=== PATIENT | female | born 1965 | race Caucasian/White ===

== ENCOUNTER 2019-11-13 16:13 | Outpatient (CLI) | payer BC, SELFPAY ==
--- NOTE | 2019-11-13 16:22 | ECG_ITS ---
Measurements Intervals [place] Rate: 63 P: 79 MN: 142 QRS: 75 QRSD: 73 T: 72 QT: 386 QTc: 396 Interpretive Statements SINUS RHYTHM WITH SINUS ARRHYTHMIA RSR' IN V1 OR V2, CONSIDER RIGHT VENTRICULAR HYPERTROPHY OR RIGHT VCD BORDERLINE ECG Electronically Signed On 11-14-2019 7:38:57 CDT by Maldonado Huggins D.O.
[2019-11-13 16:26] LABS: Basophils Absolute Auto 0.03 K/mm3 (0.00-0.10); Basophils Percent Auto 0.4 % (0.0-1.0); Eosinophils Absolute Auto 0.16 K/mm3 (0.02-0.50); Eosinophils Percent Auto 2.2 % (1.0-6.0); Hematocrit 41.6 % (35.0-49.0); Hemoglobin 14.4 g/dL (12.0-15.0); Immature Granulocyte Absolute 0.03 K/mm3 (0.00-0.00); Immature Granulocyte Percent A 0.4 % (0.0-0.0); Lymphocytes Absolute Auto 2.08 K/mm3 (1.10-4.50); Lymphocytes Percent Auto 28.5 % (18.0-42.0); Mean Corpuscular HGB Conc 34.6 g/dL (32.0-36.0); Mean Corpuscular Volume 89.7 fL (78.0-102.0); Mean Platelet Volume 10.4 fl (9.2-11.8); Monocytes Absolute Auto 0.73 K/mm3 (0.10-0.90); Neutrophils Absolute Auto 4.3 K/mm3 (1.7-7.2); Neutrophils Percent Auto 58.5 % (50.0-70.0); Platelet Count Result 216 K/mm3 (150-420); Red Blood Count 4.64 M/mm3 (4.20-5.40); Red Cell Distribution Width 11.9 % (11.6-14.4); White Blood Count 7.3 K/mm3 (4.8-10.8)
[2019-11-13 17:14] LABS: Alanine Aminotransferase 109 U/L (14-59); Albumin Level 4.2 g/dL (3.4-5.0); Alkaline Phosphatase 57 U/L (46-116); Aspartate Amino Transferase 51 U/L (15-37); Bilirubin,Total 1.5 mg/dL (0.00-1.00); Blood Urea Nitrogen 10 mg/dL (7-18); Calcium 9.1 mg/dL (8.5-10.1); Carbon Dioxide 31 mmol/L (21-32); Chloride 102 mmol/L (98-108); Cholesterol 162 mg/dL (0-200); Estimated Glomerular Filt Rate > 60; Glucose 94 mg/dL (70-99); HDL Direct 52 mg/dL (40-60); LDL Cholesterol Calculated 82 mg/dL (<130); Osmolality Calculated 293 mOsm/kg (285-295); Sodium 142 mmol/L (136-145); Thyroid Stimulating Hormone 1.48 uIU/mL (0.36-3.74); Total Protein 7.1 g/dL (6.4-8.2); Triglycerides 141 mg/dL (0-150)
== END 2019-11-13 16:14 | disposition home or self-care (01) ==
PROVIDERS: PCP Nurse Practitioner Family; Visit Provider Nurse Practitioner Family
DX: Z00.00 Encounter for general adult medical examination without abnormal findings (principal); R07.89 Other chest pain
CPT/HCPCS: 36415; 80053; 80061; 84443; 85025; 93005

== ENCOUNTER 2019-11-19 08:46 | Outpatient (CLI) | payer BC, SELFPAY ==
--- NOTE | 2019-11-19 12:39 | P.PCNPFT_ITS ---
PFT Interpretation PFT Interpretation: DOS: 11/19/2019 REQUESTING: Irma Valenzuela REASON FOR TESTING: Shortness of breath PULMONARY FUNCTION TESTS Results are reproducible. Spirometry: FEV is 85%, 2.2 L. FVC is 96%. FEV1% is 87%, all are normal. FEF25- 75% is low at 50% predicted and increases by 27% after bronchodilator. Lung volumes: TLC 89%, normal. Residual volume is 84%, normal. Airway resistance increased at 187%. Diffusion: DLCO 88%, normal. Flow volume loop: Normal. IMPRESSION: This study shows a small airways pattern with reduced FEF 25-75% with a good response to bronchodilator, mild increase in airway resistance. In the proper clinical setting, this pattern may be consistent with asthma. Beverley Gillis MD
== END 2019-11-19 08:47 | disposition home or self-care (01) ==
PROVIDERS: PCP Nurse Practitioner Family; Visit Provider Nurse Practitioner Family
DX: R06.02 Shortness of breath (principal); R74.9 Abnormal serum enzyme level, unspecified; R94.31 Abnormal electrocardiogram [ECG] [EKG]
CPT/HCPCS: 94060; 94726; 94729

== ENCOUNTER 2019-11-21 07:28 | Outpatient (CLI) | payer BC, SELFPAY ==
--- NOTE | ~2019-11-21 | US_ITS ---
EXAMINATION: US abdomen complete DATE: 11/21/2019 09:32 INDICATION: Abnormal levels of serum enzymes TECHNIQUE: Multiple grayscale and Doppler ultrasound images of the abdomen were obtained. COMPARISON: None available FINDINGS: The head, body, and tail of the pancreas are normal. The liver is normal with normal echoge nicity and echotexture. No surface nodularity. Normal hepatopetal flow in the main portal vein. Stone s are present in the nondistended gallbladder. There is no gallbladder wall thickening or pericholecy stic fluid. The normal common bile duct measures 3 mm. There was no sonographic Funez sign. The visu alized portions of the aorta and inferior vena cava are normal. The right kidney measures 9.8 x 3.3 x 4.7 cm. The left kidney measures 8.5 x 3.7 x 4.9 cm. The kidney s demonstrate normal parenchymal echogenicity. There is no hydronephrosis. The spleen is normal in ap pearance and measures 10.1 cm. IMPRESSION: 1. Cholelithiasis without evidence of cholecystitis. Reviewed, dictated and finalized at location A.
--- NOTE | 2019-11-21 07:38 | ECHO_ITS ---
Patient Info Name: Aislinn Payne Age: 54 years : 1965 Gender: Female Ht: 65 in Wt: 121 lbs BSA: 1.58 m2 HR: 74 bpm BP: 109 / 62 mmHg Heart Rhythm: Sinus Rhythm Technical Quality: Fair Exam Date: 11/21/2019 8:24 AM Exam Location: [facility] Patient Status: Outpatient Admit Date: 11/21/2019 Staff Ordering Physician: Irma Valenzuela NP Document Improvement Specialist: Celine Porter RDCS Attending Provider: Irma Valenzuela NP Referring Physician: Nicolas DALTON; Exam Type: CA echo doppler color flow Study Info Indications R94.31 - Abnormal electrocardiogram ECG EKG Strain analysis performed. Complete two-dimensional, color flow and Doppler transthoracic echocardiogram is performed. History/Risk Factors Hypertension: No Dyslipidemia: No Congenital Heart Disease (CHD): No Peripheral Arterial Disease (PAD): No Myocardial Infarction (NH): No Chronic Lung Disease: No Obesity: No Renal Disease: No Coronary Artery Disease (CAD) No Congestive Heart Failure (CHF): No Cardiomyopathy/LV Systolic Dysfunction: No Diabetes Mellitus: No COPD: No Tobacco Use: Never Cerebrovascular Disease: No Family History: Diabetes Mellitus Deep Vein Thrombosis (DVT): None Dialysis: None Frailty Scale (CSHA): 1: Very Fit Cardiac Arrest: No Prior Interventions Pacemaker: No PCI: No CABG: No Valve Surgery: No ICD: No PV Intervention: None Heart Transplant: No Summary 1. Left ventricular chamber dimension is normal. 2. Left ventricular systolic function is normal, estimated at 60-65%. 3. The left ventricular diastolic function is abnormal. 4. E/e' 10 is mildly elevated. 5. Global longitudinal strain is normal at -20.2%. 6. The mitral valve has mildly calcified annulus. Left Ventricle E/e' 10 is mildly elevated. Global longitudinal strain is normal at -20.2%. Left ventricular chamber dimension is normal. Left ventricular systolic function is normal, estimated at 60-65%. The left ventricular diastolic function is abnormal. Right Ventricle Right ventricular chamber dimension is normal. Right ventricular systolic function is normal. Left Atria Left atrial chamber dimension is normal. Right Atria Right atrial chamber dimension is normal. Aortic Valve The aortic valve is trileaflet. There is no aortic valve stenosis. There is no aortic valve regurgitation. Pulmonic Valve There is no pulmonic regurgitation. Mitral Valve The mitral valve has mildly calcified annulus. There is no mitral valve stenosis. There is no mitral valve regurgitation. Tricuspid Valve There is no tricuspid valve regurgitation. Pericardium/Pleural There is no pericardial effusion. Inferior Vena Cava Normal inferior vena cava with >50% collapse upon inspiration consistent with normal right atrial pressure, 5 mmHg. Aorta The aortic root size at the sinus of Valsalva is normal. Left Ventricular Outflow Tract Name Value Normal LVOT 2D LVOT Diameter 1.6 cm LVOT Doppler LV
[2019-11-21 08:46] LABS: Alanine Aminotransferase 91 U/L (14-59); Albumin Level 4.1 g/dL (3.4-5.0); Alkaline Phosphatase 49 U/L (46-116); Anion Gap 14.9 mmol/L (7-16); Aspartate Amino Transferase 38 U/L (15-37); Bilirubin,Total 1.4 mg/dL (0.00-1.00); Blood Urea Nitrogen 10 mg/dL (7-18); Calcium 9.3 mg/dL (8.5-10.1); Carbon Dioxide 28 mmol/L (21-32); Chloride 104 mmol/L (98-108); Estimated Glomerular Filt Rate > 60; Glucose 85 mg/dL (70-99); Osmolality Calculated 294 mOsm/kg (285-295); Potassium 3.9 mmol/L (3.5-5.1); Sodium 143 mmol/L (136-145); Total Protein 6.9 g/dL (6.4-8.2)
[2019-11-24 20:04] LABS: Hepatitis A Antibody IgM Nonreactive; Hepatitis B Core Antibody Nonreactive (Nonreactive); Hepatitis B Surface Antigen Nonreactive (Nonreactive); Hepatitis C Signal to Cutoff 0.01 ratio (<1.00); Hepatitis C Virus Antibody Nonreactive (Nonreactive)
== END 2019-11-21 07:29 | disposition home or self-care (01) ==
PROVIDERS: PCP Nurse Practitioner Family; Visit Provider Nurse Practitioner Family
DX: R74.8 Abnormal levels of other serum enzymes (principal); R94.31 Abnormal electrocardiogram [ECG] [EKG]
CPT/HCPCS: 36415; 76700; 80053; 80074; 93306

== ENCOUNTER 2020-01-07 10:01 | Outpatient (CLI) | payer BC, SELFPAY ==
[2020-01-07 10:55] LABS: Alanine Aminotransferase 112 U/L (14-59); Albumin Level 4.2 g/dL (3.4-5.0); Alkaline Phosphatase 62 U/L (46-116); Anion Gap 11.2 mmol/L (7-16); Aspartate Amino Transferase 61 U/L (15-37); Bilirubin,Total 1.6 mg/dL (0.00-1.00); Blood Urea Nitrogen 14 mg/dL (7-18); Calcium 9.1 mg/dL (8.5-10.1); Carbon Dioxide 29 mmol/L (21-32); Chloride 102 mmol/L (98-108); Estimated Glomerular Filt Rate > 60; Glucose 78 mg/dL (70-99); Osmolality Calculated 285 mOsm/kg (285-295); Potassium 4.2 mmol/L (3.5-5.1); Sodium 138 mmol/L (136-145); Total Protein 7.2 g/dL (6.4-8.2)
== END 2020-01-07 10:02 | disposition home or self-care (01) ==
LOC: CHSLAB 10:03
PROVIDERS: PCP Nurse Practitioner Family; Visit Provider Nurse Practitioner Family
DX: R74.8 Abnormal levels of other serum enzymes (principal)
CPT/HCPCS: 36415; 80053

== ENCOUNTER 2020-01-10 09:47 | Outpatient (CLI) | payer BC, SELFPAY ==
[2020-01-10 10:48] LABS: Iron 92 ug/dL (50-170); Percent Iron Saturation 27 % (12-57)
[2020-01-15 11:51] LABS: Alpha-1-Antitrypsin, QN 90 mg/dL (83-199)
== END 2020-01-10 09:48 | disposition home or self-care (01) ==
LOC: CHSLAB 09:53
PROVIDERS: PCP Nurse Practitioner Family; Visit Provider Nurse Practitioner Family
DX: J45.909 Unspecified asthma, uncomplicated (principal); R74.8 Abnormal levels of other serum enzymes
CPT/HCPCS: 36415; 82103; 82104; 83540; 83550

== ENCOUNTER 2020-01-13 14:21 | Outpatient (CLI) | payer BC, SELFPAY ==
[2020-01-13 15:15] LABS: Immunoglobulin A 182 mg/dL (70-400); Immunoglobulin G 965 mg/dL (700-1600); Immunoglobulin M 122 mg/dL (40-230)
[2020-01-16 10:13] LABS: Tissue Transglutaminase IgA Ab 1 U/mL (<4); Tissue Transglutaminase IgG Ab 3 U/mL (<6)
[2020-01-16 11:14] LABS: Mitochondrial (M2) Ab (IgG) <=20.0 U (<=20.0)
[2020-01-16 11:20] LABS: Actin Antibody (IgG) <20 U (<20)
[2020-01-16 11:57] LABS: Ceruloplasmin 27 mg/dL (18-53)
== END 2020-01-13 14:22 | disposition home or self-care (01) ==
PROVIDERS: PCP Nurse Practitioner Family; Visit Provider Internal Medicine Gastroenterology
DX: R79.89 Other specified abnormal findings of blood chemistry (principal)
CPT/HCPCS: 36415; 82390; 82728; 82784; 83516; 83520; 86038

== ENCOUNTER 2020-02-05 11:07 | Outpatient (CLI) | payer BC, SELFPAY ==
[2020-02-05 12:03] LABS: Alanine Aminotransferase 25 U/L (14-59); Albumin Level 3.9 g/dL (3.4-5.0); Alkaline Phosphatase 50 U/L (46-116); Anion Gap 10 mmol/L (8-16); Aspartate Amino Transferase 18 U/L (15-37); Bilirubin,Total 1.5 mg/dL (0.00-1.00); Blood Urea Nitrogen 9 mg/dL (7-18); Calcium 9.2 mg/dL (8.5-10.1); Carbon Dioxide 28 mmol/L (21-32); Chloride 105 mmol/L (98-108); Estimated Glomerular Filt Rate > 60; Glucose 90 mg/dL (70-99); Osmolality Calculated 294 mOsm/kg (285-295); Potassium 3.9 mmol/L (3.5-5.1); Sodium 143 mmol/L (136-145); Total Protein 6.9 g/dL (6.4-8.2)
== END 2020-02-05 11:08 | disposition home or self-care (01) ==
PROVIDERS: PCP Nurse Practitioner Family; Visit Provider Internal Medicine Gastroenterology
DX: R79.89 Other specified abnormal findings of blood chemistry (principal)
CPT/HCPCS: 36415; 80053

== ENCOUNTER 2020-03-25 15:12 | Outpatient (CLI) | payer BC, SELFPAY ==
--- NOTE | ~2020-03-25 | XR_ITS ---
XR ankle LT 2V DATE: 03/25/2020 15:51 INDICATION: Rolling injury; left ankle and foot pain. TECHNIQUE: 3 views COMPARISON: None FINDINGS: No fracture or dislocation of the ankle or disruption of the ankle mortise. No periosteal r eaction or bone destruction. IMPRESSION: Negative Reviewed, dictated and finalized at location B. IMPRESSION: Negative
--- NOTE | ~2020-03-25 | XR_ITS ---
XR foot LT 2V DATE: 03/25/2020 15:51 INDICATION: Rolled ankle and foot yesterday; lateral ankle and foot pain TECHNIQUE: AP and lateral views of left foot COMPARISON: None FINDINGS: No fracture or dislocation, periosteal reaction or bone destruction, joint space narrowing, erosive change or other significant abnormality. IMPRESSION: Negative Reviewed, dictated and finalized at location B. IMPRESSION: Negative
== END 2020-03-25 15:13 | disposition home or self-care (01) ==
PROVIDERS: PCP Nurse Practitioner Family; Visit Provider Nurse Practitioner Family
DX: M25.572 Pain in left ankle and joints of left foot (principal)
CPT/HCPCS: 73600; 73620

== ENCOUNTER 2020-07-22 07:58 | Outpatient (CLI) | payer OTHER, SELFPAY ==
[2020-07-23 16:56] LABS: SARS-CoV-2 RNA PCR Negative
== END 2020-07-22 07:59 | disposition home or self-care (01) ==
LOC: CHSLAB 08:01
PROVIDERS: PCP Nurse Practitioner Family; Visit Provider Nurse Practitioner Family
DX: Z20.822 Contact with and (suspected) exposure to COVID-19 (principal)
CPT/HCPCS: C9803; U0003; U0005

== ENCOUNTER 2020-09-30 09:44 | Outpatient (CLI) | payer OTHER, SELFPAY ==
--- NOTE | ~2020-09-30 | XR_ITS ---
EXAMINATION: XR chest 2V DATE: 09/30/2020 10:12 INDICATION: Shortness of breath. TECHNIQUE: Frontal and lateral views of the chest were obtained. COMPARISON: Chest 2 views 05/08/2015 FINDINGS: There is mild scarring at the lung apices. No pleural effusion or pneumothorax. The heart s ize is normal. Breast implants are noted. IMPRESSION: 1. Stable mild scarring at the lung apices. Reviewed, dictated and finalized at location A.
--- NOTE | 2020-09-30 14:07 | MISC_ITS ---
This report was moved to the correct visit, [id number] on 12/11/20. Original report was signed by Beverley Gillis MD on 10/01/202148. Methacholine Challenge Report Signed Methacholine Challenge Methacholine Challenge: DOS: 09/30/2020 REQUESTING: Irma Valenzuela REASON FOR TESTING: Shortness of breath METHACHOLINE CHALLENGE This test was conducted per ATS guidelines. A previous study on 11/19/2019 showed normal spirometry. The patient was exposed to sequentially increasing doses of methacholine in the usual manner. Level 1 - saline Level 2 - 0.025 mg Level 3 - 0.25 mg Level 4 - 2.5 mg Level 5 - 10 mg Level 6 - 25 mg The test was stopped after the final dose, 25 mg. There was no significant drop in FEV1 during this test. Flows returned to normal after bronchodilator was administered. IMPRESSION: This is a negative methacholine challenge with the the patient completing the test without a significant drop in FEV1. The best use for a methacholine challenge is to rule out asthma. Clinical correlation is advised. Beverley Gillis MD Methacholine Procedure Perform Procedure Performed Methacholine Challenge This dictation may have been done utilizing a voice recognition system. Attempts have been made to correct errors. However, there may be uncorrected grammatical, spelling, and recognition errors present. Report Initialized date/time: Beverley Gillis MD 09/30/20 / 1407 Electronically signed by: Beverley Gillis MD 10/01/202148 [facility]
== END 2020-09-30 09:45 | disposition home or self-care (01) ==
LOC: CHSIMG 09:46
PROVIDERS: PCP Nurse Practitioner Family; Visit Provider Internal Medicine Critical Care Medicine
DX: R06.00 Dyspnea, unspecified (principal)
CPT/HCPCS: 71046; 94070; 94726; 94729; A9270; J7674

== ENCOUNTER 2020-12-24 10:19 | Outpatient (CLI) | payer OTHER, SELFPAY ==
--- NOTE | 2020-12-24 10:36 | EST_ITS ---
Patient Info Name: Aislinn Payne Age: 55 years : 1965 Gender: Female Ht: 65 in Wt: 117 lbs BSA: 1.55 m2 Exam Date: 12/24/2020 10:50 AM Exam Location: [facility] Patient Status: Outpatient Admit Date: 12/24/2020 Staff Ordering Physician: Toñito, Vasquez Paniagua MD Attending Provider: Beverley Gillis MD Exercise Technologist: Donna Monsivais RDCS Exercise Physician: Maldonado Huggins DO Exam Type: CA stress test treadmill Study Info Indications R06.00 - Dyspnea, unspecified A treadmill exercise stress test was performed. History/Risk Factors Hypertension: No Dyslipidemia: No Congenital Heart Disease (CHD): No Peripheral Arterial Disease (PAD): No Myocardial Infarction ([place]): No Chronic Lung Disease: No Obesity: No Renal Disease: No Coronary Artery Disease (CAD) No Congestive Heart Failure (CHF): No Cardiomyopathy/LV Systolic Dysfunction: No Diabetes Mellitus: No COPD: No Tobacco Use: Never Cerebrovascular Disease: No Family History: Diabetes Mellitus Deep Vein Thrombosis (DVT): None Dialysis: None Frailty Scale (CSHA): 1: Very Fit Cardiac Arrest: No Prior Interventions Pacemaker: No PCI: No CABG: No Valve Surgery: No ICD: No PV Intervention: None Heart Transplant: No Summary 1. 1. Negative Gonzalo exercise stress test for ischemic ST changes by ECG criteria. 2. 2. Good functional capacity, achieving 10 METs of workload. 3. 3. Appropriate HR response to exercise. 4. 4. Appropriate HR recovery at 1 minute post exercise. 5. 5. No imaging with stress testing. 6. 6. Patient informed of the above results. Protocol: Gonzalo Stress ECG Details Stage: REST Duration (min): 4 min : 45 sec Speed (mph): 0.0 Grade (%): 0 HR (bpm): 53 SBP (mmHg): 101 DBP (mmHg): 62 METS: --- Stage: REST Duration (min): 9 min : 15 sec Speed (mph): 0.0 Grade (%): 0 HR (bpm): 55 SBP (mmHg): 101 DBP (mmHg): 62 METS: --- Stage: STAGE 1 Duration (min): 1 min : 0 sec Speed (mph): 1.7 Grade (%): 10 HR (bpm): 81 SBP (mmHg): 101 DBP (mmHg): 62 METS: --- Stage: STAGE 1 Duration (min): 2 min : 0 sec Speed (mph): 1.7 Grade (%): 10 HR (bpm): 92 SBP (mmHg): 101 DBP (mmHg): 62 METS: --- Stage: STAGE 1 Duration (min): 3 min : 0 sec Speed (mph): 1.7 Grade (%): 10 HR (bpm): 92 SBP (mmHg): 125 DBP (mmHg): 63 METS: --- Stage: STAGE 2 Duration (min): 1 min : 0 sec Speed (mph): 2.5 Grade (%): 12 HR (bpm): 98 SBP (mmHg): 125 DBP (mmHg): 63 METS: --- Stage: STAGE 2 Duration (min): 2 min : 0 sec Speed (mph): 2.5 Grade (%): 12 HR (bpm): 104 SBP (mmHg): 122 DBP (mmHg): 62 METS: --- Stage: STAGE 2 Duration (min): 3 min : 0 sec Speed (mph): 2.5 Grade (%): 12 HR (bpm): 109 SBP (mmHg): 122 DBP (mmHg): 62 METS: --- Stage: STAGE 3 Duration (min): 1 min : 0 sec Speed (mph): 3.4 Grade (%):
== END 2020-12-24 10:20 | disposition home or self-care (01) ==
LOC: ANHCARD 10:21
PROVIDERS: PCP Nurse Practitioner Family; Visit Provider Internal Medicine Critical Care Medicine
DX: R06.00 Dyspnea, unspecified (principal)
CPT/HCPCS: 93017

== ENCOUNTER 2022-01-18 07:34 | Emergency (ER) | payer OTHER, SELFPAY ==
--- NOTE | ~2022-01-18 | CT_ITS ---
EXAMINATION: CT brain wo con INDICATION: Headache COMPARISON: None TECHNIQUE: Standard unenhanced head CT. The dose-length product (DLP) was 605.33 mGy-cm. The mA was a djusted according to patient size. Iterative reconstruction technique was employed. FINDINGS: There is no intracranial hemorrhage, acute infarction, or abnormal mass lesion. The ventric les are normal. There is no abnormal mass effect or midline shift. The rodriguez-white matter differentiat ion is normal. The basal cisterns are patent. The orbits are normal. The paranasal sinuses, mastoids and calvarium are normal. IMPRESSION: 1. No acute intracranial abnormality. Reviewed, dictated and finalized at location B.
[2022-01-18 07:40] VITALS: BP 124/59; PULSE 74; RESP 14; TEMP 36.7; O2SAT 99
--- NOTE | 2022-01-18 07:48 | ED.HA ---
HPI - Headache General Chief Complaint: Headache Stated Complaint: headache, nausea Time Seen by Provider: 01/18/22 07:43 Source: patient and RN notes reviewed Mode of arrival: ambulatory Limitations: no limitations History of Present Illness HPI Narrative: Patient states that she went to an outpatient clinic yesterday and was given 2 different kinds of shots 1 for nausea 1 for pain. He said it really did not work for fiber 6 hours but then her headache came back. Her headache is worse when she stands gets better when she lies down. MD elicited complaint: headache Onset (ago): day(s) (4) Onset description: suddenly Location: frontal and band-like Severity: moderate Quality & Timing: throbbing Exacerbating factors: sitting/standing Relieving factors: rest Context: occurred at rest Associated symptoms: none Related Data Home Medications Medication Instructions Recorded Confirmed levonorgestrel 20 mcg/24 hours (7 1 insert intrauterine ONCE 02/16/21 01/18/22 yrs) 52 mg intrauterine device (Mirena) Allergies Allergy/AdvReac Type Severity Reaction Status Date / Time sulfamethoxazole [Septra] Allergy Intermediate Unknown Verified 01/18/22 07:46 Review of Systems Review of Systems: All systems reviewed & are unremarkable except as noted in HPI and below PMFSH Past Medical History Medical History (Updated 01/18/22 @ 09:07 by Jesus Pierce MD) 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 Cholelithiasis Colon cancer screening Dyspnea No significant past medical history Surgical History Surgical History No history of previous surgery Social History Social History Smoking status: Never smoker Tobacco type: cigarettes Alcohol intake: never Substance use: never Substance use type: does not use Exam Const: General: healthy appearing, no acute distress and alert Nutritional Appearance: well nourished and thin Orientation/consciousness: patient oriented x3 Limitations: no limitations HENMT: Head: normal to inspection Ears: external ears normal Eyes: Conjunctivae: conjunctivae normal Pupils: Equal, round and reactive pupils present EOM: EOMs intact bilaterally Neck: Neck: normal visual inspection Resp: Effort & Inspection: normal respiratory effort Auscultation: clear to auscultation bilaterally Cardio: Rate: regular rate Rhythm: regular rhythm GI: GI Palp: Yes Soft to palpation and No Tenderness to palpation present (GI) Auscultation: normal bowel sounds Back/Spine/Pelvis: Cervical Spine: cervical ROM normal Thoracic/Lumbar Spine: thoraco-lumbar ROM normal Skin: General skin exam: normal color Rashes: no rashes Neuro: General: patient oriented x3, moves all extremities, no meningeal signs, no focal motor deficits and CN's II-XI intact bilaterally Cranial nerves: Yes Nystagmus not present Speech: normal speech Gait exam (Neuro): Normal gait present Extrem: General: normal to inspection and no clubbing, cyanosis or edema Psych: Mental Status: mental status grossly normal Affect: normal affect Attitude: cooperative Course Course Emergency Course: patient's symptoms appear consistent with decreased CSF volume. She will need Neurology consult and MRI. I offered her repeat injection of Toradol but she said it really did not help and when it finally did only lasted 2 hours. Vital Signs Vital signs: Vital Signs Temperature 36.7 C 01/18/22 07:40 Pulse Rate 74 01/18/22 07:40 Respiratory Rate 14 01/18/22 07:40 Blood Pressure 124/59 L 01/18/22 07:40 Pulse Oximetry 99 01/18/22 07:40 Oxygen Delivery Room Air 01/18/22 07:40 Temperature 36.7 C 01/18/22 07:40 Pulse Rate 68 01/18/22 09:10 Respiratory Rate 14 01/18/22 09:10 Blood Pressure 115/57 L 01/18/22 09:10 Pulse Oximetry 98 01/18/22 09:10 Oxygen Delivery Room Air 01/18/22 09:10
--- NOTE | 2022-01-18 07:58 | PC.NURSE ---
PT ALSO HAD NEGATIVE COVID TEST YESTERDAY AT HOME AND AT THE CLINIC
[2022-01-18 09:10] VITALS: BP 115/57; PULSE 68; RESP 14; O2SAT 98
== END 2022-01-18 09:10 | disposition home or self-care (01) ==
PROVIDERS: Emergency Provider Emergency Medicine; PCP Nurse Practitioner Family
DX: R51.9 Headache, unspecified (principal)
CPT/HCPCS: 70450; 99284

== ENCOUNTER 2022-01-19 11:21 | Outpatient (CLI) | payer OTHER, SELFPAY ==
--- NOTE | 2022-01-19 11:30 | PC.NURSE ---
Here for OP meds for headache and nausea
[2022-01-19] MEDS: SODIUM CHLORIDE 0.9% IV 1,000 ML 1000 ML IVPB (11:37)
[2022-01-19] MEDS: PROCHLORPERAZINE EDISYLATE 10 MG/2 ML VIAL IV PUSH (11:40)
[2022-01-19] MEDS: diphenhydrAMINE HCl INJ 50 MG/ML VIAL IV PUSH (11:44)
--- NOTE | 2022-01-19 12:04 | PC.NURSE ---
warm blanket and ice chips given, personal items in reach, call light in reach
--- NOTE | 2022-01-19 13:05 | PC.NURSE ---
patient states feels a little better but headache continues, advised to follow up with dr benavidez as instructed.
== END 2022-01-19 11:22 | disposition home or self-care (01) ==
LOC: CHSTREATRM 11:23
PROVIDERS: PCP Nurse Practitioner Family; Visit Provider Family Medicine
DX: R51.9 Headache, unspecified (principal)
CPT/HCPCS: 96360; 96361; 96374; 96375; J0780; J1200; J7030

== ENCOUNTER 2022-01-26 11:22 | Outpatient (CLI) | payer OTHER, SELFPAY ==
--- NOTE | ~2022-01-26 | CT_ITS ---
EXAMINATION: CTA brain carotid DATE: 01/26/2022 12:33 INDICATION: Headache. Neck pain. TECHNIQUE: Computed tomographic angiography (CTA) of the head was performed without and with 100 mL O mnipaque-350 intravenous contrast. CTA of the neck was performed with intravenous contrast. Automated exposure control and iterative reconstruction technique were employed. The dose-length product was 1 346.81 mGy-cm. Maximum intensity projection and volume rendered 3D-reconstructions were created by jackeline yao technologist on a separate workstation. COMPARISON: Head CT 01/18/2022 FINDINGS: HEAD CTA: There is no intracranial hemorrhage, acute infarction, or abnormal intracranial mass lesion . The ventricles are normal in size. The paranasal sinuses are clear. The orbits are normal. The mast oid air cells are normal. The vertebral arteries are codominant. There is no significant stenosis of basilar artery or the posterior cerebral arteries. There is no significant stenosis of the intracrani al internal carotid arteries or anterior or middle cerebral arteries. Anterior communicating artery i s normal. Right posterior communicating artery is normal. A left posterior communicating arteries are not identified. There is no aneurysm. NECK CTA: There is mild scarring at the lung apices. There are no pathologically enlarged lymph nodes . There is no significant stenosis of the vertebral arteries. There is minimal plaque in the proximal internal carotid arteries. There is 0% stenosis of the proximal right internal carotid artery relati ve to normal distal artery lumen diameter (NASCET criteria). There is 0% stenosis of the proximal lef t internal carotid artery relative to normal distal artery lumen diameter. There is moderate degenera tive disc disease at C5-C6. IMPRESSION: 1. Normal brain. No aneurysm or significant intracranial arterial stenosis. 2. 0% stenosis of the proximal internal carotid arteries relative to normal distal artery lumen diame ters (NASCET criteria). Reviewed, dictated and finalized at location A. IMPRESSION: 1. Normal brain. No aneurysm or significant intracranial arterial stenosis. 2. 0% stenosis of the proximal internal carotid arteries relative to normal dis paula artery lumen diameters (NASCET criteria).
== END 2022-01-26 11:23 ==
LOC: MICIMG 11:23
PROVIDERS: PCP Psychiatry & Neurology Neurology; Visit Provider Psychiatry & Neurology Neurology
DX: R51.9 Headache, unspecified (principal)
CPT/HCPCS: 70496; 70498; Q9967

== ENCOUNTER 2022-02-15 06:32 | Outpatient (CLI) | payer OTHER, SELFPAY ==
--- NOTE | ~2022-02-15 | MR_ITS ---
EXAMINATION: MR cervical spine wo/w con DATE: 02/15/2022 08:19 INDICATION: Severe headache TECHNIQUE: Magnetic resonance imaging (MRI) of the cervical spine was performed without and with 10 m L Multihance intravenous contrast. Sequences included sagittal T2-weighted FSE, sagittal T2-weighted FS FSE, sagittal T1-weighted FSE, axial T2-weighted FSE, and axial T1-weighted SE. Postcontrast seque nces included sagittal T1-weighted FS FSE, and axial T1-weighted FS SE. COMPARISON: CT dated 01/26/2022 FINDINGS: Bone alignment is normal. Vertebral body heights are normal. T1 and T2 hyperintense hemangioma at T1 . Bone marrow signal intensity is otherwise normal. Mild disc height loss with annular fissure at C5- C6. Remaining disc heights are normal. Cord signal intensity is normal. The visualized cervical soft tissues are unremarkable. No abnormally enhancing lesions identified. The following disc levels are s pecifically discussed: C2-C3: The disc does not extend beyond the endplate margin. There is no uncovertebral joint osteoarth ritis. There is no facet joint osteoarthritis. There is no neural foraminal stenosis. There is no evans tral canal stenosis. C3-C4: The disc does not extend beyond the endplate margin. There is mild left uncovertebral joint os teoarthritis. There is mild bilateral facet joint osteoarthritis. There is no neural foraminal stenos is. There is no central canal stenosis. C4-C5: The disc does not extend beyond the endplate margin. There is mild bilateral, left greater imani n right uncovertebral joint osteoarthritis. There is mild right facet joint osteoarthritis. There is no neural foraminal stenosis. There is no central canal stenosis. C5-C6: Disc is bulging, eccentric to the right. There is mild right and moderate left uncovertebral j oint osteoarthritis. There is mild bilateral facet joint osteoarthritis. There is mild right and mode rate left neural foraminal stenosis. There is mild central canal stenosis as well as narrowing of the left lateral recess. C6-C7: Disc is minimally bulging. There is minimal bilateral uncovertebral joint osteoarthritis. Ther e is minimal bilateral facet joint osteoarthritis. There is no neural foraminal stenosis. There is no central canal stenosis. C7-T1: The disc does not extend beyond the endplate margin. There is no uncovertebral joint osteoarth ritis. There is mild right and moderate left facet joint osteoarthritis. There is no neural foraminal stenosis. There is no central canal stenosis. IMPRESSION: 1. Mild spondylosis at C5-C6 with otherwise minimal cervical spondylosis. Reviewed, dictated and finalized at location A.
--- NOTE | ~2022-02-15 | MR_ITS ---
EXAMINATION: MR brain/brain stem wo/w con DATE: 02/15/2022 08:19 INDICATION: Severe headache. TECHNIQUE: Magnetic resonance imaging (MRI) of the brain and brainstem was performed without and with 10 mL MultiHance intravenous contrast. COMPARISON: Head CT 01/18/2022 FINDINGS: There is no intracranial hemorrhage, acute infarction, or abnormal intracranial mass lesion . There is diffuse pachymeningeal thickening and enhancement. The ventricles are normal in size. The orbits are normal. The mastoid air cells are normal. The paranasal sinuses are clear. IMPRESSION: 1. Diffuse pachymeningeal thickening and enhancement. This finding is most commonly secondary to prio r lumbar puncture or spine surgery and can persist for years. This finding may also be seen with intr acranial hypotension. Reviewed, dictated and finalized at location A. IMPRESSION: 1. Diffuse pachymeningeal thickening and enhancement. This finding is most comm only secondary to prior lumbar puncture or spine surgery and can persist for ye ars. This finding may also be seen with intracranial hypotension.
== END 2022-02-15 06:33 | disposition home or self-care (01) ==
PROVIDERS: Visit Provider Psychiatry & Neurology Neurology
DX: R51.9 Headache, unspecified (principal); M47.892 Other spondylosis, cervical region; R93.0 Abnormal findings on diagnostic imaging of skull and head, not elsewhere classified
CPT/HCPCS: 70553; 72156; A9577

== ENCOUNTER 2022-03-01 01:26 | Outpatient (CLI) | payer OTHER, SELFPAY ==
[2022-02-17 13:55] VITALS: BMI 18.6
--- NOTE | 2022-02-21 07:32 | PC.NURSE ---
Addendum entered by Kelly Herrera RN 02/22/22 15:18: PT TO ARRIVE AT 0630 ON 02/23/22 FOR PROCEDURE AT 0830. Original Note: Pre Radiology instructions Report to the Outpatient Waiting Room, entrance under the green pavilion located off [facility], at time _0600 on date ___02/22____. Procedure Time: __799 . One visitor will be allowed to accompany the patient into the hospital. The visitor will be instructed to remain with patient at all times or leave the building due to restrictions. We will allow the visitor to come back to the postoperative area when patient is ready. NO children visitors allowed at this time. You and your visitor will be asked to self-screen and do not enter if you have any COVID symptoms. A mask is required within the hospital. Patients are to have no food or drink 6 hours prior to procedure time Driving will be restricted after the procedure, you must have a person to drive you home. Labs will be drawn in preop area and once reviewed, you will be taken to radiology area for procedure. When the procedure is completed, you will be taken to outpatient where you will be monitored for several hours. You may have one visitor in this area. Other than holding anti-coagulants, patient may take other medication(s) as scheduled. Prior to your appointment date patients are instructed to hold anti-coagulants after discussing with ordering provider to stop. If unable to discontinue anti-coagulants please notify radiologist. No aspirin or warfarin (Coumadin) for 7 days prior to the procedure. No clopidogrel (Plavix), ticagrelor (Brilinta), prasugrel (Effient) or dabigatran (Pradaxa) for 5 days prior to the procedure. No rivaroxaban (Xarelto), apixaban (Eliquis), dipyridamole (Aggrenox or Persantine) or cilostazol (Pletal) for 2 days prior to the procedure. Medications to discontinue per physician: n/a Date to take last dose: ____n/a Please leave all valuables, including medications, at home the day of procedure. The hospital will not accept responsibility for valuables. Wear comfortable, loose fitting clothing. Follow any additional instructions given to you from ordering provider. Telephone instructions given to __pt and asked if any additional questions and then verbalized understanding. Patient advised to call scheduling provider office or registration scheduling [phone] if any additional questions.
--- NOTE | 2022-02-25 10:37 | PC.NURSE ---
Pre Radiology instructions Report to the Outpatient Waiting Room, entrance under the green pavilion located off [facility], at time _0730 on date 03/01/22 . Procedure Time: . One visitor will be allowed to accompany the patient into the hospital. The visitor will be instructed to remain with patient at all times or leave the building due to restrictions. We will allow the visitor to come back to the postoperative area when patient is ready. NO children visitors allowed at this time. You and your visitor will be asked to self-screen and do not enter if you have any COVID symptoms. A mask is required within the hospital. Patients are to have no food or drink 6 hours prior to procedure time Driving will be restricted after the procedure, you must have a person to drive you home. Labs will be drawn in preop area and once reviewed, you will be taken to radiology area for procedure. When the procedure is completed, you will be taken to outpatient where you will be monitored for several hours. You may have one visitor in this area. Other than holding anti-coagulants, patient may take other medication(s) as scheduled. Prior to your appointment date patients are instructed to hold anti-coagulants after discussing with ordering provider to stop. If unable to discontinue anti-coagulants please notify radiologist. No aspirin or warfarin (Coumadin) for 7 days prior to the procedure. No clopidogrel (Plavix), ticagrelor (Brilinta), prasugrel (Effient) or dabigatran (Pradaxa) for 5 days prior to the procedure. No rivaroxaban (Xarelto), apixaban (Eliquis), dipyridamole (Aggrenox or Persantine) or cilostazol (Pletal) for 2 days prior to the procedure. Medications to discontinue per physician: NONE Date to take last dose: Please leave all valuables, including medications, at home the day of procedure. The hospital will not accept responsibility for valuables. Wear comfortable, loose fitting clothing. Follow any additional instructions given to you from ordering provider. Telephone instructions given to ___PATIENT and asked if any additional questions and then verbalized understanding. Patient advised to call scheduling provider office or registration scheduling [phone] if any additional questions.
[2022-02-25 10:42] VITALS: BMI 18.6
[2022-03-01] VITALS (12 sets, daily range): BP systolic 91–107; BP diastolic 44–61; PULSE 48–87; RESP 14–20; TEMP 37.4; O2SAT 98–100
--- NOTE | ~2022-03-01 | CT_ITS ---
EXAMINATION: CT cervical spine w con DATE: 03/01/2022 09:52 INDICATION: Intracranial hypotension. TECHNIQUE: Computed tomography (CT) of the cervical spine was performed without intravenous contrast after intrathecal injection of contrast (CT myelogram). Automated exposure control and iterative misha nstruction technique were employed. The dose-length product was 116.56 mGy-cm. COMPARISON: Cervical spine MRI 02/15/2022 FINDINGS: There is mild scarring at the lung apices. There is mild kyphosis of cervical spine. There is 5 degrees dextrocurvature of cervicothoracic spine. Vertebral body heights are normal. There is mi ldly decreased disc height at C5-C6. The following disc levels are specifically discussed: C2-C3: There is no uncovertebral joint osteoarthritis. There is mild bilateral facet joint osteoarthr itis. There is no neural foraminal stenosis. There is no central canal stenosis. C3-C4: There is no uncovertebral joint osteoarthritis. There is mild bilateral facet joint osteoarthr itis. There is no neural foraminal stenosis. There is no central canal stenosis. C4-C5: There is mild left uncovertebral joint osteoarthritis. There is no facet joint osteoarthritis. There is no neural foraminal stenosis. There is no central canal stenosis. C5-C6: The disc is bulging. There is mild right and severe left uncovertebral joint osteoarthritis. T here is no facet joint osteoarthritis. There is mild left neural foraminal stenosis. There is no cent ral canal stenosis. C6-C7: There is a right central protrusion. There is no uncovertebral joint osteoarthritis. There is no facet joint osteoarthritis. There is no neural foraminal stenosis. There is no central canal steno sis. C7-T1: There is no uncovertebral joint osteoarthritis. There is moderate right and severe left facet joint osteoarthritis. There is mild left neural foraminal stenosis. There is no central canal stenosi s. IMPRESSION: 1. No cerebrospinal fluid leak. 2. Mild cervical spondylosis. Reviewed, dictated and finalized at location A.
--- NOTE | ~2022-03-01 | XR_ITS ---
EXAMINATION: XR injection blood patch w img DATE: 03/01/2022 14:43 INDICATION: Spontaneous cerebrospinal fluid leak. Intracranial hypotension. TECHNIQUE: The procedure including the risks, benefits, and alternatives was discussed with the patie nt. Risks discussed included spinal headache, cerebrospinal fluid leak, bleeding, and infection. The patient understood the risks and agreed to proceed. The skin overlying the L3-L4 level was prepped an d draped in usual sterile fashion. Subcutaneous 1% lidocaine was used for local anesthesia. A 20 ga uge spinal needle was advanced under fluoroscopic guidance and with loss of resistance technique to t he epidural space with head elevated 15 degrees. There was no cerebrospinal fluid in the needle hub. 7 mL blood from the patient's IV was injected. The needle was removed and the entry site was cleaned and dressed. There were no immediate complications. Fluoroscopy exposure time was 0.1 minutes. The t ota number of images was 1. FINDINGS: Real-time fluoroscopy demonstrates the needle at the L3-L4 level. IMPRESSION: 1. Successful fluoro-guided lumbar blood patch. Reviewed, dictated and finalized at location A.
--- NOTE | ~2022-03-01 | CT_ITS ---
CORRECTED REPORT Order # changed to [id number]. 03/03/2022 This report was recreated on 03/03/2022. Original report was . EXAMINATION: 1. XR lumbar puncture diagnostic 2. XR_MY2+_CR 3. CT thoracic lumbar w con DATE: 03/01/2022 10:19 INDICATION: Intracranial hypotension. Headache. TECHNIQUE: The procedure including the risks, benefits, and alternatives was discussed with the patient. Risks discussed included spinal headache, cerebrospinal fluid leak, bleeding, and infection. The patient understood the risks and agreed to proceed. A timeout was performed to verify the patient's name, date of , and procedure to be performed. The skin overlying the L3- L4 level was prepped and draped in usual sterile fashion. Subcutaneous 1% lidocaine was used for local anesthesia. A 20 gauge spinal needle was advanced under fluoroscopic guidance. 17 mm Omnipaque 180 was injected. The needle was removed and the entry site was cleaned and dressed. There were no immediate complications. Fluoroscopy exposure time was 0.2 minutes. The total number of images was 6. Computed tomography (CT) of the thoracic and lumbar spine was performed without intravenous contrast. Automated exposure control and iterative reconstruction technique were employed. The dose-length product was 358.78 mGy- cm. FINDINGS: THORACIC AND LUMBAR MYELOGRAM: Real-time fluoroscopy demonstrates the needle at the L3-L4 level. The opening pressure was 4 cm water (Normal range is variably defined as 6-20 cm water and up to 25 cm water in obese patients. Pressure >25 cm water is one of the modified Dandy criteria for idiopathic intracranial hypertension). 3 mL of clear, colorless fluid was collected in 1 tube. No leakage of contrast is seen on fluoroscopic myelogram images, but further detail will be described on the post myelogram CT. POST MYELOGRAM THORACIC SPINE CT: There is mild scarring at the lung apices. There is 5 degrees levocurvature of upper thoracic spine. Vertebral body heights are normal. There is mildly decreased disc height from T3-T4 through T7-T8. The discs do not extend beyond the endplate margins. There is multilevel mild facet joint osteoarthritis. On the right, there is severe facet joint osteoarthritis at T3-T4 and T5-T6 with mild right neural foraminal stenosis. There is no central canal stenosis. The spinal cord is normal in morphology. At T12-L1, there is anterior epidural contrast. POST MYELOGRAM LUMBAR SPINE CT: There is 3 degrees levocurvature of lumbar spine. Vertebral body heights are normal. There is moderately decreased disc height at L5-S1. The conus medullaris is at L2. At L1-L2, there is increased attenuation in the posterior disc that may be a calcification or contrast. At L5-S1, there is increased attenuation in the posterior disc that is likely calcification. There are gallstones in the gallbladder, which is normal in size. There is an intrauterine device in expected position. The following disc levels are specifically discussed: L1-L2: There is a central protrusion. There is mild bilateral facet joint osteoarthritis. There is no neural foraminal stenosis. There is mild central canal stenosis. L2-L3: The disc does not extend beyond the endplate margin. There is mild bilateral facet joint osteoarthritis. There is no neural foraminal stenosis. There is no central canal stenosis. L3-L4: The disc does not extend beyond the endplate margin. There is mild bilateral facet joint osteoarthritis. There is no neural foraminal stenosis. There is no central canal stenosis. L4-L5: The disc is mildly bulging. There is mild bilateral facet joint osteoarthritis. There is mild bilateral neural foraminal stenosis. There is no central canal stenosis. L5-S1: The dis
[2022-03-01 07:53] LABS: Mean Platelet Volume 10.3 fl (7.4-10.4); Platelet Count Result 188 k/mm3 (150-375)
[2022-03-01 08:03] LABS: Prothrombin Time 12.8 Seconds (11.1-14.7)
[2022-03-01 10:58] LABS: Appearance CSF Clear (Clear); CSF source CSF; Color CSF Colorless (Colorless)
[2022-03-01 10:59] LABS: Lymphocytes CSF 64 % (40-80); Macrophages CSF 3; Monocytes CSF 22 % (15-45); Neutrophils CSF 3 % (0-6); Other Cells CSF 0 %
[2022-03-01 11:00] LABS: Nucleated Cell CSF 4 /uL (0-5); Red Blood Cell CSF 2 (0-2)
[2022-03-01 11:25] LABS: Glucose CSF 48 mg/dL (40-70); Total Protein CSF 68 mg/dL (12-60)
--- NOTE | 2022-03-01 15:18 | SUR.PHASEII ---
1340 - pt to radiology for blood patch 1440 - pt to op recovery for 2 hrs for recovery
--- NOTE | 2022-03-01 15:44 | SUR.PHASEII ---
1530 - dr. gallegos assessing pt. stated that she can leave at 1540.
== END 2022-03-01 15:45 | disposition home or self-care (01) ==
PROVIDERS: Radiology Diagnostic Radiology; PCP Nurse Practitioner Family; Referring Provider Psychiatry & Neurology Neurology; Visit Provider Radiology Diagnostic Radiology
PROC: 009U3ZZ Drainage of Spinal Canal, Percutaneous Approach (ICD-10-PCS; CPT 62328; principal; 2022-03-01 09:30)
PROC: (CPT 62303; 2022-03-01 09:30)
DX: R51.9 Headache, unspecified (principal); G96.02 Spinal cerebrospinal fluid leak, spontaneous
CPT/HCPCS: 36415; 62273; 62303; 62304; 62305; 62328; 72126; 72129; 72132; 77003; 82945; 84157; 85049; 85610; 87015; 87116; 87206; 89051

== ENCOUNTER 2023-04-21 11:05 | Outpatient (CLI) | payer OTHER, SELFPAY ==
[2023-04-21 12:18] LABS: Influenza A QL RT-PCR Negative (Negative); Influenza B QL RT-PCR Negative (Negative); SARS-CoV-2 RNA PCR Positive (Negative)
== END 2023-04-21 11:06 | disposition home or self-care (01) ==
LOC: CHSLAB 11:08
PROVIDERS: PCP Nurse Practitioner Family; Visit Provider Family Medicine
DX: U07.1 COVID-19 (principal)
CPT/HCPCS: 87636

== ENCOUNTER 2024-02-17 09:14 | Outpatient (CLI) | payer OTHER, SELFPAY ==
--- NOTE | ~2024-02-17 | MR_ITS ---
EXAMINATION: MR thoracic spine wo con DATE: 02/17/2024 10:37 INDICATION: Cervical spinal fluid leak. Headache. TECHNIQUE: Magnetic resonance imaging (MRI) of the thoracic spine was performed without intravenous c ontrast. COMPARISON: Thoracic spine CT 03/01/22 FINDINGS: There is 4 degrees levocurvature of upper thoracic spine. Vertebral body heights are normal . Intervertebral disc heights are normal. The discs does not extend beyond the endplate margins. Ther e is multilevel facet joint osteoarthritis, severe in the upper thoracic spine on the right. On the r ight, there is mild neural foraminal stenosis at T3-T4 and T5-T6. On the left, there is mild neural f oraminal stenosis at T1-T2. The spinal cord signal intensity is normal. There are gallstones in the g allbladder, which is distended. IMPRESSION: 1. Mild thoracic spondylosis. 2. Cholelithiasis. Gallbladder distention may be secondary to fasting. Reviewed, dictated and finalized at location A.
--- NOTE | ~2024-02-17 | MR_ITS ---
EXAMINATION: MR lumbar spine wo con DATE: 02/17/2024 10:37 INDICATION: Cerebrospinal fluid leak. Headache. TECHNIQUE: Magnetic resonance imaging (MRI) of the lumbar spine was performed without intravenous con trast. Sequences included sagittal T2-weighted FSE, sagittal T2-weighted FS FSE, sagittal T1-weighted FSE, and axial T2-weighted FSE. COMPARISON: CT lumbar spine 03/01/2022 FINDINGS: Alignment normal. Vertebral body heights are normal. There is mildly decreased disc height at L5-S1. The distal spinal cord signal intensity is normal. The conus medullaris is at L2. The gallb ladder is distended and contains gallstones. The following disc levels are specifically discussed: L1-L2: There is a central extrusion. There is mild bilateral facet joint osteoarthritis. There is no neural foraminal stenosis. There is mild central canal stenosis. L2-L3: The disc does not extend beyond the endplate margin. There is mild bilateral facet joint osteo arthritis. There is no neural foraminal stenosis. There is no central canal stenosis. L3-L4: The disc does not extend beyond the endplate margin. There is moderate bilateral facet joint o steoarthritis. There is no neural foraminal stenosis. There is no central canal stenosis. L4-L5: The disc is bulging. There is severe bilateral facet joint osteoarthritis. There is mild bilat eral neural foraminal stenosis. There is no central canal stenosis. L5-S1: The disc is bulging. There is mild bilateral facet joint osteoarthritis. There is mild bilater al neural foraminal stenosis. There is mild central canal stenosis. IMPRESSION: 1. Mild lumbar spondylosis. 2. Cholelithiasis. Gallbladder distention may be secondary to fasting. Reviewed, dictated and finalized at location A.
--- NOTE | ~2024-02-17 | MR_ITS ---
EXAMINATION: MR cervical spine wo con DATE: 02/17/2024 10:37 INDICATION: Headache. Cerebral spinal fluid leak. TECHNIQUE: Magnetic resonance imaging (MRI) of the cervical spine was performed without intravenous c ontrast. Sequences included sagittal T2-weighted FSE, sagittal T2-weighted FS FSE, sagittal T1-weight ed FSE, axial MERGE, and axial T2-weighted FSE. COMPARISON: CT cervical spine 03/01/22 FINDINGS: There is 8 degrees dextrocurvature of cervicothoracic spine. Vertebral body heights are nor mal. There is mildly decreased disc height at C5-C6 and mildly decreased disc height at C6-C7. The sp inal cord signal intensity is normal. The following disc levels are specifically discussed: C2-C3: The disc does not extend beyond the endplate margin. There is no uncovertebral joint osteoarth ritis. There is mild bilateral facet joint osteoarthritis. There is no neural foraminal stenosis. The re is no central canal stenosis. C3-C4: The disc does not extend beyond the endplate margin. There is mild left uncovertebral joint os teoarthritis. There is moderate right and mild left facet joint osteoarthritis. There is no neural fo raminal stenosis. There is no central canal stenosis. C4-C5: There is a central protrusion. There is no uncovertebral joint osteoarthritis. There is mild b ilateral facet joint osteoarthritis. There is no neural foraminal stenosis. There is no central canal stenosis. C5-C6: The disc is bulging. There is severe bilateral uncovertebral joint osteoarthritis. There is no facet joint osteoarthritis. There is mild right and moderate left neural foraminal stenosis. There i s mild central canal stenosis. C6-C7: There is a right central extrusion. There is no uncovertebral joint osteoarthritis. There is n o facet joint osteoarthritis. There is no neural foraminal stenosis. There is mild central canal sten osis. C7-T1: The disc does not extend beyond the endplate margin. There is no uncovertebral joint osteoarth ritis. There is severe bilateral facet joint osteoarthritis. There is mild left neural foraminal sten osis. There is no central canal stenosis. IMPRESSION: 1. Moderate cervical spondylosis, stable from 03/01/22. Reviewed, dictated and finalized at location A.
== END 2024-02-17 09:15 | disposition home or self-care (01) ==
LOC: CHSIMG 09:15
PROVIDERS: PCP Nurse Practitioner Family; Visit Provider Nurse Practitioner Family
DX: G89.29 Other chronic pain (principal); G96.02 Spinal cerebrospinal fluid leak, spontaneous; R51.9 Headache, unspecified; M43.04 Spondylolysis, thoracic region; K80.20 Calculus of gallbladder without cholecystitis without obstruction; M43.02 Spondylolysis, cervical region; M43.06 Spondylolysis, lumbar region
CPT/HCPCS: 72141; 72146; 72148

== ENCOUNTER 2024-02-21 13:41 | Outpatient (RCR) | payer OTHER, SELFPAY ==
--- NOTE | 2024-02-21 14:56 | PTOPEVAL1 ---
Assessment and note entered by Leroy Sifuentes Evaluation Information Assessment Status Evaluation ICD-10 Condition Codes (PT) Cervicalgia M54.2 Onset 02/03/24 Subjective Information Pt. reports that started noticing neck pain with headaches around 02/03/24. She reports that she had no incident and just woke with the pain. She states that she was receiving home care scheduler about 2 months prior for her sinuses and noticed some pain following described manipulation. She states that her neck pain is constant and can vary in intensity. 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 She reports she drives about 1 hour to work, and states that pain will increase with the car ride. She reports she underwent MRI of her spine recently, as she did have a spinal leak 2 years ago. She reports she is fairly inactive and has done little exercise in her lifetime. She reports that her goal is to reduce her headaches and reduce her pain. Reported Pain Level Pain Score 4: Self Report Assessment PT Clinical Summary Pt. is a 58 year old female who enters the clinic with cervicalgia with headaches. She presents with impaired postural awareness, impaired gross cervical mobility, impaired proximal u.e. strength , and pain. Continued skilled PT is indicated in order to improve these areas to allow for improved comfort and efficiency with IADL's. Plan of Care Interventions Electrical Stimulation,Hot Pack/Cold Pack,Manual Therapy,Mechanical Traction,Neuro Re-education, Patient/Caregiver Educati,Therapeutic Activities, Therapeutic Exercise PT Services Indicated Yes Treatment Frequency and 2x/week x 10 visits Duration These treatments will address the objective and functional deficits as defined above. The patient will be advanced safely and appropriately in order for the patient to progress towards his/her prior level of function. Additional exercises will be introduced and as well as a comprehensive home exercise program upon discharge, if needed, ?to ensure carryover of functional gains achieved in the clinic. This treatment plan has been reviewed and agreement upon by the patient.
--- NOTE | 2024-02-21 14:56 | OPREHPOC ---
Outpatient Therapy Plan of Care This is a Multidisciplinary Plan of Care that may contain components documented by all disciplines (PT, OT, and ST.) PT Problem 1 PT Problem #1 Knowledge Deficit PT Goal 1 Goal / Goal Update Pt. will be independent with a HEP addressing strength and posture. Target Visit 2 PT Problem 2 PT Problem #2 Impaired Range of Motion PT Goal 1 Goal / Goal Update Pt. will present with 80 degrees bilateral cervical rotation to improve visual field with driving. Target Visit 10 PT Problem 3 PT Problem #3 Impaired Functional Mobil PT Goal 1 Goal / Goal Update Pt. will present with less than 15% limitation on the NDI indicating significant functional improvement. Target Visit 10 PT Problem 4 PT Problem #4 Impaired Strength PT Goal 1 Goal / Goal Update Pt. will demonstrate 5/5 proximal u.e. strength to improve postural awareness. Target Visit 10
== END 2024-05-21 23:59 | disposition home or self-care (01) ==
LOC: CHSPT 13:41
PROVIDERS: PCP Family Medicine; Visit Provider Family Medicine
DX: M54.2 Cervicalgia (principal); R51.9 Headache, unspecified; G89.29 Other chronic pain
CPT/HCPCS: 97012; 97014; 97110; 97140; 97161; G0283

== ENCOUNTER 2024-10-21 09:01 | Outpatient (CLI) | payer OTHER, SELFPAY ==
--- OUTSIDE RECORDS SUMMARY | 2024-10-21 09:32 | XMS_ITS | Encounter Summary ---
Author Organization [facility] Address [address] [place] [address] Phone Care Team Providers Care Sand Caster Apprentice Name Role Phone Noel Barnes APRN, NEWS VIDEOTAPE EDITOR Primary Care Provider + Arron Oswald MD Unavailable [phone] Reason for Visit * Reason Onset Date Comments Results 03/29/2024 Encounter Details Date Type Department Care Team (Late st Contact Info) Description 03/29/2024 Telephone [facility] [address] [place] [address] Noel Barnes, ALPHONSO, NEWS VIDEOTAPE EDITOR [address] [place] [address] Results Social History Tobacco Use Types Packs/Day Years Used Date Smoking Tobacco: Never Smokeless Tobacco: Never Alcohol Use Standard Drinks/Week Comments Yes 0 (1 standard drink = 0.6 oz pur e alcohol) social Comments Unknown Sex and Gender Information Value Date Recorded Sex Assigned at Not on file Legal Sex Female 11:55 PM CDT Gender Identity Not on file Sexual Orientation Not on file documented as of this encounter Miscellaneous Notes * Telephone Encounter - Nessa Foster RN - 03/29/2024 9:24 AM CDT SITUATION: Results BACKGROUND: Caller contacting [facility] , forwarded to provider for the patient Patient states she received her MRI results over the phone but cannot find the report on her [facility] appt. Patient would like to read the repeat and is requesting it be sent through her [employer] or mailed to her (address confirmed). Status is not released for patient to see. documented in this encounter Plan of Treatment Not on file documented as of this encounter Visit Diagnoses Not on filedocumented in this encounter Care Teams Sand Caster Apprentice Relationship Specialty Start Date End Date Noel Barnes APRN, NEWS VIDEOTAPE EDITOR [address] [place] [address] PCP - General Advanced Practice Nurse 02/28/24 Arron Oswald MD [address] [place] [address] Consulting Physician Neurology 03/11/24 documented as of this encounter
--- OUTSIDE RECORDS SUMMARY | 2024-10-21 09:32 | XMS_ITS | Clinical Summary ---
Author Organization [facility] Address [address] [place] [address] Care Team Providers Care Lamps Tester And Inspector Name Role Phone Irma Valenzuela Angel OCC THER-BARREL DEDENTING MACHINE OPERATOR Primary Care Provid er Source Comments [facility],non-owned Affiliates and Associated Physician Practices is amultiple site organization consisting of ambulatory clinics and hospital sitesin [place], [place], [place] and [place]. This disclosure is being madepursuant to the Care Everywhere program and may not contain all information available regarding this patient. Last updated 18.[facility] Allergies Active Allergy Reactions Criticality Noted Date Comments Sulfamethoxazole Rash Medium 02/28/2024 Sulfamethoxazole W-Trimethoprim Rash Medium 07/28 Medications * Be aware that medications may not be up to date on this document. Alwaysverify current medications with the patient. levonorgestrel (MIRENA, 52 MG,) 20 MCG/24HR IUD 1 (one) device by Intrauterine route as directed Active estradiol (Vivelle-Dot) 0.0375 MG/24HR patch APPLY 1 PATCH TOPICALLY TO SKIN TWICE WEEKLY 4 Active Immunizations Immunization Administration Dates Next Due Covid Moderna primary monovalent 12+ yr 0.5mL Social History Tobacco Use Types Packs/Day Years Used Date Smoking Tobacco: Never Smokeless Tobacco: Never Alcohol Use Standard Drinks/Week Comments Yes 0 (1 standard drink = 0.6 oz pure alcohol) X1 PER MONTH DRINK OR GLASS WINE Comments Unknown Sex and Gender Information Value Date Recorded Sex Assigned at Not on file Legal Sex Female 6:26 AM DIRECTOR OF INCOME TAX Gender Identity Not on file Sexual Orientation Not on file Last Filed Vital Signs Vital Sign Reading Time Taken Comments Blood Pressure 110/57 05/10/2024 1:06 PM DIRECTOR OF INCOME TAX Pulse 66 05/10/2024 1:06 PM DIRECTOR OF INCOME TAX Temperature 36.6 C (97.8 F) 05/10/2024 1:06 PM DIRECTOR OF INCOME TAX Respiratory Rate - - Oxygen Saturation 98% 05/10/2024 1:06 PM DIRECTOR OF INCOME TAX Inhaled Oxygen Concentration - - Weight 60.3 kg (133 lb) 05/10/2024 1:06 PM DIRECTOR OF INCOME TAX Height 165.1 cm (5' 5 ) 05/10/2024 1:06 PM DIRECTOR OF INCOME TAX Body Mass Index 22.13 05/10/2024 1:06 PM DIRECTOR OF INCOME TAX Plan of Treatment Health Maintenance Due Date Last Done Comments COLOGUARD (AGES 45-75) - COLON CA SCREENING 1966 COLON MONITORING 1966 COLONOSCOPY - COLON CA SCREENING 1966 CT COLONOGRAPHY - COLON CA SCREENING 1966 Colorectal Cancer Screening 1966 FIT - COLON CA SCREENING 1966 FLEX SIG - COLON CA SCREENING 1966 LIPID TESTING 1966 PAP SMEAR 1966 HIV SCREENING 1981 HEPATITIS C SCREENING 04/06/1984 DTAP/TDAP/TD VACCINES (1 - Tdap) 1985 HEPATITIS B VACCINE (1 of 3 - 19+ 3-dose series) 1985 PNEUMOCOCCAL VACCINE 50+ (1 of 1 - PCV) 2016 ZOSTER VACCINE (1 of 2) 2016 COVID-19 VACCINE (2 - season) 2024 09/03/2020 DEPRESSION SCREENING 06/26/2024 INFLUENZA VACCINE (Season Ended) 2025 MAMMOGRAM 10/17/2025 10/18/2023, 09/25, 10/13/2022, Additional history exists HIB VACCINE Aged Out No longer eligi ble based on patient's age to complete this topic HPV VACCINE Aged Out No longer eligi ble based on patient's age to complete this topic MENINGOCOCCAL (Group B) VACCINE SHARED DECISION-MAKING Aged Out No longer eligible based on patient's age to complete this topic MENINGOCOCCAL GROUPS A/C/Y/W VACCINE Aged Out No longer eligible based on patient's age to complete this topic Goals Goal Patient Goal Type Associated Problems Recent Progress Patient-Stated? Author Medication Management General On track( 021 10:00 AM CDT) Kali Mullen RN Note: Expected end date: Interventions: Take all medications as prescribed Let your doctor know right away about any changes in your medications Make sure to request a refill of your medication at least one week prior to your last dose Insurance Care Teams Lamps Tester And Inspector Relationship Specialty Start Date End Date Irma Valenzuela, OCC THER-BARREL DEDENTING MACHINE OPERATOR [address] [place] [address] PCP - General Nurse Practitioner Family 05/17/24
--- OUTSIDE RECORDS SUMMARY | 2024-10-21 09:32 | XMS_ITS | Clinical Summary ---
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 Lot # [id number], Exp date: . Insertion date: 12-05-22. Active estradioL (VIVELLE-DOT) 0.0375 mg/[address] 1 patch on the skin 2 (two) times a week for 4 days 26 patch 3 5 026 Active azelastine (ASTELIN) 137 mcg (0.1 %) nasal spray Administer 1 spray into each nostril 2 (two) times a day as needed for rhinitis or allergies Use in each nostril as directed 025 Discontin ued(Thera py completed ) naproxen (ALEVE) 220 mg tablet Take 1 tablet (220 mg total) by mouth every 12 (twelve) hours as needed for headaches 025 Discontin ued(Other ) acetaminophen (TYLENOL) 500 mg tablet DO NOT TAKE WHILE TAKING ESGIC, DO NOT TAKE MORE THAN 4,000 MG OF TYLENOL PER DAY 5 025 Discontin ued(Thera py completed ) acetaminophen- aspirin-caffei ne (EXCEDRIN MIGRAINE) 250-250-65 mg per tablet DO NOT TAKE WHILE TAKING ESGIC, DO NOT TAKE MORE THAN 4,000 MG OF TYLENOL PER DAY 025 Discontin ued(Other ) Active Problems Problem Noted Date Diagnosed Date Disorder of eustachian tube 10/16/2024 Assessment & Plan (10/16/2024 4:41 PM CDT): Hearing test today - normal hearing CSF leak 08/15/2024 Headache 08/14/2024 Screening for malignant neoplasm of colon 2018 Overview (07/08/2019): Added automatically from request for surgery [id number] No pathologic diagnosis 11/09/2013 Overview (09/28/2016): No diagnosis Resolved Problems Problem Noted Date Diagnosed Date Resolved Date Screening for malignant neoplasm of colon 06/04/2019 06/05/2019 Overview (06/04/2019): Added automatically from request for surgery [id number] Encounters Date Type Department Care Team Description 10/18/2024 Results Follow-Up [facility] Flann[facility] [address] [place] [address] [address] [place] [address] Joe Montague MD 10/16/2024 2:30 PM CDT Procedure visit [facility] at [address] [place] [address] Stephanie Portillo Au.D. Sensorineural hearing loss (SNHL) of left ear with unrestricted hearing of right ear (Primary Dx); Disorder of Eustachian tube, unspecified laterality 10/16/2024 2:15 PM CDT Office Visit [facility] - [address] [place] [address] Aundrea Aviles, DO Disorder of Eustachian tube, unspecified laterality 10/07/2024 9:30 AM CDT Office Visit [facility] [address] [place] [address] [address] [place] [phone] Joe Montague MD Well woman exam (Primary Dx); Encounter for screening mammogram for malignant neoplasm of breast; Screening for malignant neoplasm of colon; Screening for colon cancer 10/07/2024 Telephone [facility] at [address] [place] [phone] Jesus Harris, 10/03/2024 3:15 PM CDT Office Visit [facility] 6th [place] [address] [place] [address] Landon Carrillo MD 10/03/2024 Telephone [facility] 6th [place] [address] [place] [address] Landon Carrillo MD 09/14/2024 Telephone [facility] 6th [place] [address] [place] [address] Landon Carrillo MD 09/13/2024 2:30 PM CDT Office Visit [facility]surgery [address] [facility] Floor 1, [address] [place] [phone] Kathryn Hoover MD CSF leak (Primary Dx) 08/19/2024 Telephone [facility]surgery [address] [facility] Floor 1, [address] [place] [address] Maria Isabel Cross RN 08/16/2024 6:50 PM FIXED INTEREST DEALER - 08/19/2024 2:03 PM FIXED INTEREST DEALER Hospital Encounter [facility] [address] [place] [address] Kathryn Hoover MD CSF leak [G96.00] (Primary Dx) Discharge Disposition: Discharge to home or self care 08/14/2024 10:53 AM FIXED INTEREST DEALER - 08/16/2024 6:15 PM FIXED INTEREST DEALER Hospital Encounter [facility] [address] [place] [phone] Nisha Glover MD Madej, Perry Hugo DO Other complicated headache syndrome (Primary Dx); CSF leak Discharge Disposition: Discharge to other type of institution with plan redmit from Last 3 Months Immunizations Immunization Administration Dates Next Due Influenza, Quadrivalent, Rec ombinant, Egg Free, Preservative Free, Intramuscular 04/13/2020 Influenza, Quadrivalent, Spl it, Preservative Free, Intramuscular 03/13/2018 Influenza, Trivalent, IM (MDV) 04/09/2021 Surgical History Surgery Date Site/Laterality Comments OTHER SURGICAL HISTORY 06/26/2002 - 06/25/2003 : OTHER SURGICAL HISTORY 06/26/2004 - 06/25/2005 : AUGMENTATION MAMMOPLASTY Breast augmentation OTHER SURGICAL HISTORY HR HPV positive 2012: Negative 2012 AUGMENTATION MAMMAPLASTY 06/26/2009 - 06/25/2010 Bilateral Medical History Medical History Date Comments Hx Other Medical 2002 ; Outc ome: 4 lb(s) 2 oz Female Hx Other Medical 2004 ; Outc ome: 6 lb(s) Female Hx Other Medical HR HPV positive 2011 Family History Medical History Relation Name Comments Coronary artery disease Other 1 Fami ly history of Coronary artery disease; Diabetes Other 2 Family history of Diabetes mellitus; Breast cancer Neg Hx Ovarian cancer Neg Hx Thyroid cancer Neg Hx Relation Name Status Comments Other 1 Other 2 Social History Tobacco Use Types Packs/Day Years Used Date Smoking Tobacco: Never Smokeless Tobacco: Never Tobacco Cessation:Counseling Given: Not Answered Alcohol Use Standard Drinks/Week Comments No 0 (1 standard drink = 0.6 oz pur e alcohol) PHQ-2 Answer Date Recorded PHQ-2 Score 0 06/04/2019 Personal Safety Answer Date Recorded Have you ever been in or are you currently in a harmful physical or emotional relationship or is someone making you feel afraid or unsafe? Denies 08/16/2024 Comments No Sex and Gender Information Value Date Recorded Sex Assigned at Not on file Legal Sex Female 2:15 AM FIXED INTEREST DEALER Gender Identity Not on file Sexual Orientation Not on file Obstetrics History Para Term AB IAB SAB Ectopic Multiple Livin g Live Births 2 2 1 1 0 0 0 0 0 2 2 Date Outcome GA Total Labor Labor/2nd/3rd Weight Sex Type Anes PTL Christina A1 A5 Name Clin 3 35w0 d F CS-LTr anv 5 Term 40w0 d F CS-LTr anv Last Filed Vital Signs Vital Sign Reading Time Taken Comments Blood Pressure 122/76 10/07/2024 9:36 AM CDT Pulse 72 10/03/2024 3:08 PM CDT Temperature 36.6 C (97.8 F) 09/13/2024 2:07 PM CDT Respiratory Rate 17 09/13/2024 2:07 PM CDT Oxygen Saturation 98% 09/13/2024 2:07 PM CDT Inhaled Oxygen Concentration - - Weight 65.7 kg (144 lb 12.8 oz) 10/16/2024 1:52 PM CDT Height 165.1 cm (5' 5 ) 10/16/2024 1:52 PM CDT Body Mass Index 24.1 10/16/2024 1:52 PM CDT Plan of Treatment Health Maintenance Due Date Last Done Comments Colon Cancer Screening-Colonoscopy 1966 Hepatitis C Screening 1966 DTaP/Tdap/Td Vaccine (1 - Tdap) 1977 Hepatitis B Screening 1984 Pneumococcal vaccine <65 (1 of 2 - PCV) 1985 Zoster Vaccine (1 of 2) 2016 Depression Screening 06/04/2020 06/04/2019, 05/28/20 18 Covid-19 Vaccine (4 - 2023-2 5 season) 2024 06/02/2021, 10/02/2020, 09/02/2020 Regular Well Visit/Exam 18-64 08/28/2024, 08/23/2022, 06/04/2019, Additional history exists Breast Cancer Screening-Mammogram 10/17/2024 10/18/2023, 10/13/2022, 07/16/2019, Additional history exists Influenza Vaccine (Season Ended) 2025 04/09/2021, 04/13/2020, 03/13/2018 Cervical Cancer Screening 10/07/20252024, 03/05/2024, 08/29/2023, Additional history exists Medical Devices Implanted Type Area Parts Salesperson Device Identifier Shelf Expiration Date Model / Serial / Lot Breast Breast Bilateral: Breast Procedures Procedure Name Priority Date/Time Associated Diagnosis Comments AUDIOGRAM Routine 10/16/2024 2:30 PM CDT Sensorineural hearing loss (SNHL) of left ear with unrestricted hearing of right ear PAP ONLY Routine 10/07/2024 10:30 AM CDT Well woman exam PAIN MGMT IMAGING EPIDURAL BLOOD PATCH Routine 08/19/2024 10:51 AM FIXED INTEREST DEALER EGFR Routine 08/18/2024 7:45 PM FIXED INTEREST DEALER BASIC METABOLIC PANEL Routine 08/18/2024 7:45 PM FIXED INTEREST DEALER CBC WITHOUT DIFFERENTIAL Routine 08/18/2024 7:45 PM FIXED INTEREST DEALER MR TOTAL SPINE CSF LEAK WO IP Routine 08/18/2024 8:47 AM FIXED INTEREST DEALER EGFR Routine 08/17/2024 9:47 PM FIXED INTEREST DEALER BASIC METABOLIC PANEL Routine 08/17/2024 9:47 PM FIXED INTEREST DEALER CBC WITHOUT DIFFERENTIAL Routine 08/17/2024 9:47 PM FIXED INTEREST DEALER URINALYSIS, MICROSCOPIC ONLY STAT 08/17/2024 7:56 AM FIXED INTEREST DEALER URINALYSIS AND REFLEX TO MICROSCOPIC AND CULTURE STAT 08/17/2024 7:56 AM FIXED INTEREST DEALER B CHECK SAMPLE STAT 08/16/2024 11:03 PM FIXED INTEREST DEALER ECG 12-LEAD STAT 08/16/2024 10:01 PM FIXED INTEREST DEALER POCT GLUCOSE DEVICE Routine 08/16/2024 9 :50 PM FIXED INTEREST DEALER EGFR STAT 08/16/2024 9:47 PM FIXED INTEREST DEALER CBC WITHOUT DIFFERENTIAL Routine 08/16/2024 9:47 PM FIXED INTEREST DEALER PROTIME-INR STAT 08/16/2024 9:47 PM FIXED INTEREST DEALER APTT STAT 08/16/2024 9:47 PM FIXED INTEREST DEALER TYPE AND SCREEN STAT 08/16/2024 9:47 PM FIXED INTEREST DEALER CBC WITHOUT DIFFERENTIAL STAT 08/16/2024 9:47 PM FIXED INTEREST DEALER PHOSPHORUS STAT 08/16/2024 9:47 PM FIXED INTEREST DEALER MAGNESIUM STAT 08/16/2024 9:47 PM FIXED INTEREST DEALER COMPREHENSIVE METABOLIC PANEL STAT 08/16/2024 9:47 PM FIXED INTEREST DEALER XR CHEST 1 VIEW IP Routine 08/16/2024 9:33 PM FIXED INTEREST DEALER MRI SPINE TOTAL COMPLETE W WO CONTRAST ED 08/14/2024 8:50 PM FIXED INTEREST DEALER MRI BRAIN W WO CONTRAST ED 08/14/2024 8:50 [address] HEAD WO CONTRAST ED 08/14/2024 1 1:52 AM FIXED INTEREST DEALER EGFR STAT 08/14/2024 11:14 AM FIXED INTEREST DEALER DIFFERENTIAL AUTO STAT 08/14/2024 11: 14 AM FIXED INTEREST DEALER BASIC METABOLIC PANEL STAT 08/14/2024 11:14 AM FIXED INTEREST DEALER CBC WITH AUTO DIFFERENTIAL STAT 08/14/2024 11:14 AM FIXED INTEREST DEALER SCREENING MAMMOGRAM BILATERAL W NIGEL W IMPLANTS Schedule Routine, Read Routine (OP Routine) 10/18/2023 7:53 AM CDT Visit for screening mammogram from Last 3 Months or Most Recently Relevant to Health Maintenance Results * AUDIOGRAM (10/16/2024 2:30 PM CDT) Narrative Stephanie Portillo Au.D. - 10/16/2024 2:30 PM CDT Stephanie Portillo Au.D. 10/16/2024 2:56 PM Audiogram Performed by: Stephanie Portillo Au.D. Authorized by: Aundrea Aviles DO Aundrea Aviles DO AUDIOLOGY SERVICES ORDERABLE S Final Result * Pap only (10/07/2024 10:30 AM CDT) Clinical indication Comment [facility] - 01 Comment:NEGATIVE FOR INTRAEP ITHELIAL LESION OR MALIGNANCY. Specimen adequacy: Comment [facility] - 01 Comment: Satisfactory for evaluation. Endocervical and/or squamous metaplastic cells (endocervical component) are present. Clinician provided ICD10 Comment [facility] - 01 Comment:Z01.419 Performed by Comment [facility] - Comment:Raysa Milian, Pipe Bender (ASCP) . . [facility] - 01 Note: Comment [facility] - 01 Comment: The Pap smear is a screening test designed to aid in the detection of premalignant and malignant conditions of the uterine cervix. It is not a diagnostic procedure and should not be used as the sole means of detecting cervical cancer. Both false-positive and false-negative reports do occur. Test methodology Comment [facility] - Comment: This liquid based ThinPrep(R) pap test was screened with the use of an image guided system. Thin prep 10/07/2024 10:3 0 AM CDT 10/07/2024 Narrative [facility] - 10/10/2024 10:11 AM CDT Performed at: [address] [place] [id number] Sales And Marketing Associate: Yanet Durbin MD, Phone: [phone] Specimen Comment: [id number] Specimen Comment: No. of containers..01 ThinPrep Vial Joe Montague MD LAB CYTOLOGY ORDERABLES Fi nal Result [facility] - * Imaging Epidural Blood Patch ([id number]) (08/19/2024 10:51 AM FIXED INTEREST DEALER) Narrative [facility] - 08/19/2024 10:52 AM FIXED INTEREST DEALER The images from this study are not interpreted by Radiology. Please refer to the physician's procedure / OR operative note. us Wayne Best MD IMG PAIN MGMT PROCEDURES Final Result [facility] * eGFR (08/18/2024 7:45 PM FIXED INTEREST DEALER) eGFR 83 >=60 mL/min/1. 73 m2 Comment: Interpretive Data Reference Interval Normal >/= 90 mL/min/1.73m2 Mildly decreased* 60 - 89 mL/min/1.73m2 Mildly to moderately decreased 45 - 59 mL/min/1.73m2 Moderately to severely decreased 30 - 44 mL/min/1.73m2 Severely decreased 15 - 29 mL/min/1.73m2 Kidney Failure < 15 mL/min/1.73m2 *Relative to young adult level Estimated glomerular filtration rate is determined by the 2020 CKD-EPI equation recommended by the National Kidney Foundation (A Unifying Approach to GFR Estimation: Recommendations of the NKF-ASK Task Force on Reassessing the Inclusion of Race in Diagnosing Kidney Disease, JASN 2020). The CKD-EPI equation should not be used for patients with unstable renal function and has not been validated in children and those over 70. Current interpretive data was last reviewed 2021. Blood 08/18/2024 7:45 PM FIXED INTEREST DEALER 08/18/2024 8:28 PM FIXED INTEREST DEALER Kathryn Hoover MD LAB BLOOD ORDERABLES Final Resul t [facility] Department of Laboratories [place], [place] [id number] * CBC without differential (08/18/2024 7:45 PM FIXED INTEREST DEALER) WBC 6.3 3.8 - 9.9 K/cumm Hgb 13.5 11.9 - 15.5 g/dL [facility] Hct 38.4 35.6 - 45.5 % [facility] Plt 211 150 - 400 K/cumm [facility] MPV 10.8 9.1 - 12.3 fL [facility] RBC 4.27 3.90 - 5.20 M/cumm [facility] MCV 89.9 81.3 - 96.4 fL [facility] MCH 31.6 27.1 - 33.3 pg [facility] MCHC 35.2 32.3 - 35.7 g/dL [facility] RDW CV 12.2 11.1 - 14.9 % [facility] RDW SD 39.8 35.7 - 48.1 fL [facility] NRBC abs 0.00 0.00 - 0.01 K/cumm [facility] Blood 08/18/2024 7:45 PM FIXED INTEREST DEALER 08/18/2024 8:28 PM FIXED INTEREST DEALER us Kathryn Hoover MD LAB BLOOD ORDERABLES Final Resul t [facility] [address] [facility] [place] [address] * Basic metabolic panel (08/18/2024 7:45 PM FIXED INTEREST DEALER) Sodium 143 135 - 145 mmol/L Potassium, pl 3.6 3.3 - 4.9 mmol/L [facility] Chloride 107 97 - 110 mmol/L [facility] CO2 26 22 - 32 mmol/L [facility] Anion gap 10 2 - 15 mmol/L [facility] BUN 12 6 - 25 mg/dL [facility] Creatinine 0.82 0.60 - 1.10 mg/dL [facility] Glucose 82 70 - 199 mg/dL [facility] Comment: Interpretive Data Fasting glucose >/= 126 mg/dl is diagnostic for diabetes. Fasting is defined as no caloric intake for at least 8 hours. Fasting glucose between 100 mg/dl to 125 mg/dl is diagnostic of prediabetes. In a patient with classic symptoms of hyperglycemia or hyperglycemic crisis, a random glucose >/= 200 mg/dl is diagnostic for diabetes. In the absence of unequivocal hyperglycemia, results should be confirmed by repeat testing. The classification and Diagnosis of Diabetes Diabetes Care 2021; 46: S19-S40. Current interpretive data was last revised 2022. 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 Dictated by: Gabriel Tran D.O. The radiology attending physician has personally reviewed this study, and had reviewed and/or edited this written report and agrees with it. Electronically signed by: Woo Berry M.D, PHD Narrative 08/18/2024 12:08 PM FIXED INTEREST DEALER EXAMINATION: 1. Magnetic resonance imaging (MRI) of the cervical spine without contrast 2. Magnetic resonance imaging (MRI) of the thoracic spine without contrast 3. 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 Patient presents with 2 days of positional headache. Suspected CSF leak. TECHNIQUE: Multiplanar multi-weighted MRI of the total spine was performed without intravenous contrast using the CSF leak protocol. 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 Normal alignment of the spine. T1 vertebral body hemangioma. The spinal cord demonstrates normal signal. The conus medullaris terminates at the level of L1-L2. Mild multilevel degenerative changes of the spine without high-grade spinal canal stenosis or neural foraminal narrowing. The visualized posterior fossa is unremarkable. Mild maxillary sinus mucosal thickening. Normal signal voids are present in the vertebral arteries. Limited views of the chest, abdomen and pelvis show no significant abnormality. Procedure Note Woo Berry MD PhD - 08/18/2024 EXAMINATION: 1. Magnetic resonance imaging (MRI) of the cervical spine without contrast 2. Magnetic resonance imaging (MRI) of the thoracic spine without contrast 3. 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 Patient presents with 2 days of positional headache. Suspected CSF leak. TECHNIQUE: Multiplanar multi-weighted MRI of the total spine was performed without intravenous contrast using the CSF leak protocol. 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 Normal alignment of the spine. T1 vertebral body hemangioma. The spinal cord demonstrates normal signal. The conus medullaris terminates at the level of L1-L2. Mild multilevel degenerative changes of the spine without high-grade spinal canal stenosis or neural foraminal narrowing. The visualized posterior fossa is unremarkable. Mild maxillary sinus mucosal thickening. Normal signal voids are present in the vertebral arteries. Limited views of the chest, abdomen and pelvis show no significant abnormality. 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 Dictated by: Gabriel Tran D.O. The radiology attending physician has personally reviewed this study, and had reviewed and/or edited this written report and agrees with it. Electronically signed by: Woo Berry M.D, PHD Kathryn Hoover MD [facility] MRI PROCEDURES Final Result * eGFR (08/17/2024 9:47 PM FIXED INTEREST DEALER) eGFR 84 >=60 mL/min/1. 73 m2 Comment: Interpretive Data Reference Interval Normal >/= 90 mL/min/1.73m2 Mildly decreased* 60 - 89 mL/min/1.73m2 Mildly to moderately decreased 45 - 59 mL/min/1.73m2 Moderately to severely decreased 30 - 44 mL/min/1.73m2 Severely decreased 15 - 29 mL/min/1.73m2 Kidney Failure < 15 mL/min/1.73m2 *Relative to young adult level Estimated glomerular filtration rate is determined by the 2020 CKD-EPI equation recommended by the National Kidney Foundation (A Unifying Approach to GFR Estimation: Recommendations of the NKF-ASK Task Force on Reassessing the Inclusion of Race in Diagnosing Kidney Disease, JASN 2020). The CKD-EPI equation should not be used for patients with unstable renal function and has not been validated in children and those over 70. Current interpretive data was last reviewed 2021. Blood 08/17/2024 9:47 PM FIXED INTEREST DEALER 08/17/2024 10:55 PM FIXED INTEREST DEALER us Kathryn Hoover MD LAB BLOOD ORDERABLES Final Resul t [facility] [place] [address] * CBC without differential (08/17/2024 9:47 PM FIXED INTEREST DEALER) WBC 6.2 3.8 - 9.9 K/cumm Hgb 12.7 11.9 - 15.5 g/dL [facility] Hct 36.4 35.6 - 45.5 % [facility] Plt 223 150 - 400 K/cumm [facility] MPV 11.2 9.1 - 12.3 fL [facility] RBC 4.10 3.90 - 5.20 M/cumm [facility] MCV 88.8 81.3 - 96.4 fL [facility] MCH 31.0 27.1 - 33.3 pg [facility] MCHC 34.9 32.3 - 35.7 g/dL [facility] RDW CV 12.2 11.1 - 14.9 % [facility] RDW SD 39.4 35.7 - 48.1 fL [facility] NRBC abs 0.00 0.00 - 0.01 K/cumm [facility] Blood 08/17/2024 9:47 PM FIXED INTEREST DEALER 08/17/2024 10:57 PM FIXED INTEREST DEALER Kathryn Hoover MD LAB BLOOD ORDERABLES Final Resul t [facility] [place] [address] * Basic metabolic panel (08/17/2024 9:47 PM FIXED INTEREST DEALER) [facility] Sodium 143 135 - 145 mmol/L Potassium, pl 3.9 3.3 - 4.9 mmol/L [facility] Chloride 107 97 - 110 mmol/L [facility] CO2 25 22 - 32 mmol/L [facility] Anion gap 11 2 - 15 mmol/L [facility] BUN 12 6 - 25 mg/dL [facility] Creatinine 0.81 0.60 - 1.10 mg/dL [facility] Glucose 97 70 - 199 mg/dL [facility] Comment: Interpretive Data Fasting glucose >/= 126 mg/dl is diagnostic for diabetes. Fasting is defined as no caloric intake for at least 8 hours. Fasting glucose between 100 mg/dl to 125 mg/dl is diagnostic of prediabetes. In a patient with classic symptoms of hyperglycemia or hyperglycemic crisis, a random glucose >/= 200 mg/dl is diagnostic for diabetes. In the absence of unequivocal hyperglycemia, results should be confirmed by repeat testing. The classification and Diagnosis of Diabetes Diabetes Care 2021; 46: S19-S40. Current interpretive data was last revised 2022. Calcium 9.1 8.5 - 10.3 mg/dL [facility] Blood 08/17/2024 9:47 PM FIXED INTEREST DEALER 08/17/2024 10:55 PM FIXED INTEREST DEALER Kathryn Hoover MD LAB BLOOD ORDERABLES Final Resul t Performing Organization Address [facility]/ZIP Co de Phone Number [facility] [place] [address] * (ABNORMAL) Urinalysis reflex to microscopic and culture Urine, clean voided (08/17/2024 7:56 AM FIXED INTEREST DEALER) Color, ur Straw Yellow Clarity, ur Clear Clear [facility] Specific gravity, ur 1.018 1.003 - 1.030 [facility] pH, urine 5.5 [facility] Comment: Interpretive Data U rine pH is affected by diet, medications, systemic acid-base disturbances, and renal tubular function. pH may affect urinary stone formation. For example, urine pH below 6.0 may help reduce the tendency for calcium phosphate stones and pH greater than 6.0 may reduce the tendency for uric acid stone formation. Source: [facility] Current Interpretive Data was last revised on 2017 Protein, ur ql Trace Negative [facility] Glucose, ur ql Negative Negative [facility] Ketones, ur Negative Negative [facility] Bilirubin, ur Negative Negative [facility] Blood, ur Negative Negative [facility] Urobilinogen, ur <2.0 <2.0 mg/dL [facility] Nitrite, ur Negative Negative [facility] Leukocyte esterase, ur 2+(A) Negative [facility] UA reflex comment Reflex to microscopic UA will be performed. [facility] Urine, clean voided 08/17/2024 7:56 AM FIXED INTEREST DEALER 08/17/2024 8:35 AM FIXED INTEREST DEALER Kathryn Hoover MD LAB MICROBIOLOGY - GENERAL ORDER ADRIA Final Result [facility] [place] [address] * (ABNORMAL) Urinalysis, microscopic only (08/17/2024 7:56 AM FIXED INTEREST DEALER) WBC, ur 6-10(A) 0 - 5 /HPF RBC, ur 0-2 0 - 2 /HPF [facility] Epithelial cells, squamous, ur 6-10(A) 0 - 5 /HPF [facility] Comment:Suggestive of contam ination. Consider recollection by clean catch. Bacteria, ur 1+(A) [facility] Mucous, ur Present(A) [facility] Culture Reflex Comment Reflex conditions for urine culture (WBC >10) not met. [facility] Urine, clean voided 08/17/2024 7:56 AM FIXED INTEREST DEALER 08/17/2024 8:35 AM FIXED INTEREST DEALER Kathryn Hoover MD LAB URINE ORDERABLES Final Resul t Performing Organization Address [facility] Co de Phone Number [facility] [place] [address] * Check Sample (08/16/2024 11:03 PM FIXED INTEREST DEALER) ABO Rh O Positive [facility] OTHER 08/16/2024 11:0 3 PM FIXED INTEREST DEALER 08/17/2024 12:12 AM FIXED INTEREST DEALER Kathryn Hoover MD LAB BLOOD ORDERABLES Final Resul t Performing Organization Address [facility] Co de Phone Number [facility] Department [place] [address] [facility] * ECG 12 lead (08/16/2024 10:01 PM FIXED INTEREST DEALER) Ventricular Rate EKG/Min 65 BPM [facility] Atrial Rate 65 BPM [facility] AR-Interval (MSEC) 140 ms [facility] QRS-Interval (MSEC) 72 ms [facility] QT-Interval (MSEC) 372 ms [facility] QTc 386 ms [facility] P [place] 73 degrees [facility] R [place] 68 degrees [facility] T [place] 68 degrees [facility] Diagnosis Normal sinus rhythm Normal ECG No previous ECGs available Confirmed by STEVE MONTEJO M.D ([id number]) on 08/19/2024 10:17:56 AM [facility] 08/16/2024 10:0 1 PM FIXED INTEREST DEALER 08/19/2024 10:17 AM FIXED INTEREST DEALER Kathryn Hoover MD ECG ORDERABLES Final Result Performing Organization Address [facility] Co de Phone Number [facility] * POCT glucose (08/16/2024 9:50 PM FIXED INTEREST DEALER) Glucose, POC 100 70 - 199 mg/dL Blood 08/16/2024 9:50 PM FIXED INTEREST DEALER 08/16/2024 9:50 PM FIXED INTEREST DEALER Kathryn Hoover MD LAB POCT ORDERABLES - DEVICE Fin al Result Performing Organization Address City/[facility]/ZIP Co de Phone Number [facility] Department [place] [address] * eGFR (08/16/2024 9:47 PM FIXED INTEREST DEALER) eGFR 87 >=60 mL/min/1. 73 m2 Comment: Interpretive Data Reference Interval Normal >/= 90 mL/min/1.73m2 Mildly decreased* 60 - 89 mL/min/1.73m2 Mildly to moderately decreased 45 - 59 mL/min/1.73m2 Moderately to severely decreased 30 - 44 mL/min/1.73m2 Severely decreased 15 - 29 mL/min/1.73m2 Kidney Failure < 15 mL/min/1.73m2 *Relative to young adult level Estimated glomerular filtration rate is determined by the 2020 CKD-EPI equation recommended by the National Kidney [employer] (A Unifying Approach to GFR Estimation: Recommendations of the NKF-ASK Task Force on Reassessing the Inclusion of Race in Diagnosing Kidney Disease, JASN 2020). The CKD-EPI equation should not be used for patients with unstable renal function and has not been validated in children and those over 70. Current interpretive data was last reviewed 2021. Blood 08/16/2024 9:47 PM FIXED INTEREST DEALER 08/16/2024 10:33 PM FIXED INTEREST DEALER Kathryn Hoover MD LAB BLOOD ORDERABLES Final Resul t [facility] [place] [address] * aPTT (08/16/2024 9:47 PM FIXED INTEREST DEALER) Pathologist [facility] aPTT 34 28 - 38 sec Comment: Interpretive Data Heparin therapeutic range: 66.0 - 100.0 seconds. Range based on correlation with therapeutic heparin activity range of 0.3 - 0.7 Units/mL. Current interpretive data was last revised on 2023. Blood 08/16/2024 9:47 PM FIXED INTEREST DEALER 08/16/2024 10:37 PM FIXED INTEREST DEALER Kathryn Hoover MD LAB BLOOD ORDERABLES Final Resul t Performing Organization Address [facility] de Phone Number [facility] [place] [employer] [place] [address] * Protime-INR (08/16/2024 9:47 PM FIXED INTEREST DEALER) Pathologist [facility] PT 10.5 9.7 - 13.0 sec INR 0.97 0.90 - 1.20 [facility] Comment: Interpretive data Oral anticoagulant therapeutic ranges: Venous thromboembolism prophylaxis or treatment: 2.0-3.0 CARDIOLOGY Standard range: 2.0-3.0 High-intensity range: 2.5-3.5 Refer to indication-specific guidelines for appropriate target ranges for prosthetic heart valve replacement. Current interpretive data was last revised on 2019. Blood 08/16/2024 9:47 PM FIXED INTEREST DEALER 08/16/2024 10:37 PM FIXED INTEREST DEALER Kathryn Hoover MD LAB BLOOD ORDERABLES Final Resul t Performing Organization Address [facility] de Phone Number [facility] [place] [employer] [place] [address] * CBC without differential (08/16/2024 9:47 PM FIXED INTEREST DEALER) WBC 7.8 3.8 - 9.9 K/cumm Hgb 13.9 11.9 - 15.5 g/dL [facility] Hct 40.0 35.6 - 45.5 % [facility] Plt 229 150 - 400 K/cumm [facility] MPV 10.8 9.1 - 12.3 fL [facility] RBC 4.42 3.90 - 5.20 M/cumm [facility] MCV 90.5 81.3 - 96.4 fL [facility] MCH 31.4 27.1 - 33.3 pg [facility] MCHC 34.8 32.3 - 35.7 g/dL [facility] RDW CV 12.2 11.1 - 14.9 % [facility] RDW SD 40.4 35.7 - 48.1 fL [facility] NRBC abs 0.00 0.00 - 0.01 K/cumm [facility] Blood 08/16/2024 9:47 PM FIXED INTEREST DEALER 08/16/2024 10:34 PM FIXED INTEREST DEALER Kathryn Hoover MD LAB BLOOD ORDERABLES Final Resul t [facility] [place] [address] * CBC without differential (08/16/2024 9:47 PM FIXED INTEREST DEALER) [facility] WBC 7.7 3.8 - 9.9 K/cumm Hgb 14.4 11.9 - 15.5 g/dL [facility] Hct 41.5 35.6 - 45.5 % [facility] Plt 223 150 - 400 K/cumm [facility] MPV 10.7 9.1 - 12.3 fL [facility] RBC 4.60 3.90 - 5.20 M/cumm [facility] MCV 90.2 81.3 - 96.4 fL [facility] MCH 31.3 27.1 - 33.3 pg [facility] MCHC 34.7 32.3 - 35.7 g/dL [facility] RDW CV 12.3 11.1 - 14.9 % [facility] RDW SD 40.5 35.7 - 48.1 fL [facility] NRBC abs 0.00 0.00 - 0.01 K/cumm [facility] Blood 08/16/2024 9:47 PM FIXED INTEREST DEALER 08/16/2024 10:34 PM FIXED INTEREST DEALER Kathryn Hoover MD LAB BLOOD ORDERABLES Final Resul t Performing Organization Address [facility] Co de Phone Number [facility] [place] [address] * Type and screen (08/16/2024 9:47 PM FIXED INTEREST DEALER) ABO Rh O Positive Chante, indirect Negative [facility] Blood 08/16/2024 9:47 PM FIXED INTEREST DEALER 08/16/2024 10:39 PM FIXED INTEREST DEALER Narrative [facility] - 08/16/2024 11:40 PM FIXED INTEREST DEALER Has the patient had Daratumumab or Isatuximab in the past 6 months?->Unknown Result [facility] Kathryn Hoover MD LAB BLOOD BANK TEST ORDERABLES F inal Result Performing Organization Address [facility] de Phone Number [facility] [place] [address] * Phosphorus (08/16/2024 9:47 PM FIXED INTEREST DEALER) Phosphorus, pl 4.4 2.3 - 4.5 mg/dL Blood 08/16/2024 9:47 PM FIXED INTEREST DEALER 08/16/2024 10:33 PM FIXED INTEREST DEALER Result [facility] Kathryn Hoover MD LAB BLOOD ORDERABLES Final Resul t Performing Organization Address [facility] Co de Phone Number [facility] [place] [address] * Magnesium (08/16/2024 9:47 PM FIXED INTEREST DEALER) Magnesium 2.3 1.4 - 2.5 mg/dL Blood 08/16/2024 9:47 PM FIXED INTEREST DEALER 08/16/2024 10:33 PM FIXED INTEREST DEALER Kathryn Hoover MD LAB BLOOD ORDERABLES Final Resul t Performing Organization Address City/[facility]/ZIP Co de Phone [facility] [place] [address] * Comprehensive metabolic panel (08/16/2024 9:47 PM FIXED INTEREST DEALER) Sodium 144 135 - 145 mmol/L Potassium, pl 3.7 3.3 - 4.9 mmol/L [facility] Chloride 106 97 - 110 mmol/L [facility] CO2 27 22 - 32 mmol/L [facility] Anion gap 11 2 - 15 mmol/L [facility] BUN 10 6 - 25 mg/dL [facility] Creatinine 0.79 0.60 - 1.10 mg/dL [facility] Glucose 92 70 - 199 mg/dL [facility] Comment: Interpretive Data Fasting glucose >/= 126 mg/dl is diagnostic for diabetes. Fasting is defined as no caloric intake for at least 8 hours. Fasting glucose between 100 mg/dl to 125 mg/dl is diagnostic of prediabetes. In a patient with classic symptoms of hyperglycemia or hyperglycemic crisis, a random glucose >/= 200 mg/dl is diagnostic for diabetes. In the absence of unequivocal hyperglycemia, results should be confirmed by repeat testing. The classification and Diagnosis of Diabetes Diabetes Care 202; 46: S19-S40. Current interpretive data was last revised 2022. Calcium 9.8 8.5 - 10.3 mg/dL [facility] Bilirubin, total 0.7 0.1 - 1.2 mg/dL [facility] Protein, pl 7.4 6.5 - 8.5 g/dL [facility] Albumin 4.3 3.5 - 5.0 g/dL [facility] Alk phos 52 40 - 130 Units/L [facility] ALT 31 7 - 45 Units/L [facility] AST 26 10 - 45 Units/L [facility] Blood 08/16/2024 9:47 PM FIXED INTEREST DEALER 08/16/2024 10:33 PM FIXED INTEREST DEALER Kathryn Hoover MD LAB BLOOD ORDERABLES Final Resul t Performing Organization Address [facility]/ZIP Co de Phone Number [facility] [place] [address] * XR chest 1 view (Portable) (08/16/2024 9:33 PM FIXED INTEREST DEALER) Anatomical Region Laterality Modality Body, Chest N/A Computed Radiogr aphy 08/17/2024 7:55 AM FIXED INTEREST DEALER Impressions 08/17/2024 8:50 AM FIXED INTEREST DEALER There are no prior chest radiographs for comparison. Lungs are clear. No pleural effusion. No pneumothorax. The heart size and mediastinal contours are within normal limits. Dictated by: Surendra Gipson M.D. The radiology attending physician has personally reviewed this study, and had reviewed and/or edited this written report and agrees with it. Electronically signed by: Leilani Still M.D. Narrative 08/17/2024 8:50 AM FIXED INTEREST DEALER EXAMINATION: 1 view chest radiograph Procedure Note Leilani Still MD - 08/17/2024 EXAMINATION: 1 view chest radiograph IMPRESSION: There are no prior chest radiographs for comparison. Lungs are clear. No pleural effusion. No pneumothorax. The heart size and mediastinal contours are within normal limits. Dictated by: Surendra Gipson M.D. The radiology attending physician has personally reviewed this study, and had reviewed and/or edited this written report and agrees with it. Electronically signed by: Leilani Still M.D. Kathryn Hoover MD IMG XR PROCEDURES Final Result * MRI Spine Total Complete W WO Contrast (08/14/2024 8:50 PM FIXED INTEREST DEALER) Anatomical Region Laterality Modality Spine N/A Magnetic Resonan ce 08/15/2024 8:32 AM FIXED INTEREST DEALER Impressions 08/15/2024 9:11 AM FIXED INTEREST DEALER 1. Findings consistent with intracranial hypotension. 2. Diffuse spinal pachymeningeal hypertrophy and enhancement. Suspected dorsal likely extra-dural collection beginning at approximately T2-T3 level extending inferiorly to the L4 level. This is best seen/most prominent at T6-T7 dorsally. Findings are suspicious for CSF leak. A dedicated CSF leak protocol MRI is available at [facility]. CT digital subtraction myelography could be performed at [facility] as an alternative. Either these studies may be useful for localizing no CSF leak (assuming ineffective blood patch). 3. Cholelithiasis with markedly distended gallbladder. Recommend clinical correlation and fasting ultrasound for further evaluation. Dictated by: Mulu Cabral, The radiology attending physician has personally reviewed this study, and had reviewed and/or edited this written report and agrees with it. Electronically signed by: Maycol Grove MD Narrative 08/15/2024 9:11 AM FIXED INTEREST DEALER EXAMINATION: 1. Magnetic resonance imaging (MRI) of the brain and brainstem without and with contrast 2. Magnetic resonance imaging (MRI) of the cervical spine without and with contrast 3. Magnetic resonance imaging (MRI) of the thoracic spine without and with contrast 4. 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 Multiplanar multi-weighted MRI of the cervical spine was performed without and with intravenous contrast using the standard protocol. Multiplanar multi-weighted MRI of the thoracic was performed without and with intravenous contrast using the standard protocol. Multiplanar multi-weighted MRI of the lumbar spine was performed without and with intravenous contrast using the standard protocol. Contrast information: 13 mL Gadoterate Meglumine COMPARISON: CT head dated 08/14/2023. FINDINGS: BRAIN: Diffuse smooth dural thickening and enhancement. Trace diffuse bilateral superimposed subdural collections are not entirely excluded. Slight upward convexity of the pituitary gland. Narrowing of the mammillopontine distance and inferior displacement of the optic chiasm. The scalp and calvarium are normal. The superior sagittal sinus demonstrates normal venous flow. The corpus callosum is normal in shape and signal intensity. The posterior fossa is unremarkable. Diffusion weighted images reveal no hyperintensities to suggest acute cerebral infarction. The ventricles are normal in position without evidence of hydrocephalus with a slitlike appearance. The paranasal sinuses are normal with no air-fluid levels. The visualized portions of the mastoids are unremarkable. The orbits appear normal. Normal flow voids are demonstrated in the carotid arteries and basilar artery. CERVICAL SPINE: There is diffuse pachymeningeal thickening and enhancement. The alignment of the cervical spine is normal. Vertebral bodies demonstrate normal signal intensity on all sequences. No acute fracture is identified. The craniocervical junction is normal. The spinal cord demonstrates normal signal intensity on all sequences. No soft tissue abnormality is identified. Normal signal voids are present in the vertebral arteries. Multilevel degenerative disc disease, greatest at C5-C6 with diffuse disc bulge effacing the anterior thecal sac without severe spinal canal stenosis.. There is mild multilevel facet arthropathy. Ligamentum flavum hypertrophy/infolding at C6-7 effaces the posterior thecal sac without severe spinal canal stenosis. There is mild multilevel uncovertebral joint disease. There is moderate left and mild right neural foraminal stenosis at C5-C6. There is mild spinal canal stenosis at C5-C6. THORACIC SPINE: There is diffuse thickening and enhancement of the meninges. On axial images, there is a thin dorsal crescent shaped region of increased T2 hyperintensity (relative to CSF) best demonstrated on series 13 image 38, immediately anterior to some prominent epidural fat. There is enhancement along the anterior margin which most likely represents underlying thickening packing meninges. The region of axial contrast enhancement through the region is thinner than the T2 signal abnormality suggesting possible fluid in the epidural space. The fluid collection extends from T8 inferiorly to T9-10. On sagittal STIR images, striated dorsal epidural signal abnormality is seen extending from T1-T6 with subtle differential signal intensity between the CSF anterior to the striation and possible fluid or pachymeningeal thickening dorsal to the striation (series 10 image 12). There is prominence of the upper to mid thoracic dorsal epidural fat which suppresses on STIR, most prominent from T5-T8. The dorsal fluid collection extends segmentally into the lumbar spine to L4, described below. The alignment of the thoracic spine is normal. 8mm lesion in the T1 vertebral body which is T1 and T2 hyperintense without suppression on STIR sequences, possibly representing an atypical hemangioma. There are no compression fractures. The spinal cord demonstrates normal signal intensity on all sequences. Mild multilevel intervertebral disc desiccation. No sharp posterior endplate osteophytes are seen indenting the thecal sac in this patient with suspected CSF leak. Central/right paracentral disc protrusions at T12-L1. There is mild multilevel facet arthropathy. There is no neuroforaminal stenosis. There is no spinal canal stenosis. LUMBAR SPINE: There is diffuse thickening and enhancement of the meninges. A crescentic dorsal fluid collection, similar to that seen in the thoracic spine, is seen extending from T12-L4 (series 22, image 9). The alignment of the lumbar spine is normal. 9 mm lesion in the T12 vertebral body which is T1 and T2 hyperintense without suppression on STIR sequences, possibly representing an atypical hemangioma. There are no compression fractures. The conus medullaris terminates at the level of L2-3. The distal spinal cord signal intensity is normal. Disc bulge with superimposed left paracentral/subarticular disc protrusion with an annular fissure at L1-L2. Disc bulge with superimposed central disc protrusion at L5-S1. Trace right L5-S1 lateral endplate Modic type I degenerative marrow edema seen on series 21 image 5. Otherwise small disc bulges in the lumbar spine. There is mild bilateral multilevel facet arthropathy. There is moderate right and mild left neuroforaminal stenosis at L5-S1 and mild bilateral neural foraminal stenosis at L4-L5. There is no spinal canal or lateral recess stenosis. No lumbar nerve root or cauda equina impingement. Ligaments and muscles are normal. Gallstones are present within a markedly distended gallbladder. Left renal cyst. Procedure Note Maycol Grove MD PhD - 08/15/2024 EXAMINATION: 1. Magnetic resonance imaging (MRI) of the brain and brainstem without and with contrast 2. Magnetic resonance imaging (MRI) of the cervical spine without and with contrast 3. Magnetic resonance imaging (MRI) of the thoracic spine without and with contrast 4. 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 Multiplanar multi-weighted MRI of the cervical spine was performed without and with intravenous contrast using the standard protocol. Multiplanar multi-weighted MRI of the thoracic was performed without and with intravenous contrast using the standard protocol. Multiplanar multi-weighted MRI of the lumbar spine was performed without and with intravenous contrast using the standard protocol. Contrast information: 13 mL Gadoterate Meglumine COMPARISON: CT head dated 08/14/2023. FINDINGS: BRAIN: Diffuse smooth dural thickening and enhancement. Trace diffuse bilateral superimposed subdural collections are not entirely excluded. Slight upward convexity of the pituitary gland. Narrowing of the mammillopontine distance and inferior displacement of the optic chiasm. The scalp and calvarium are normal. The superior sagittal sinus demonstrates normal venous flow. The corpus callosum is normal in shape and signal intensity. The posterior fossa is unremarkable. Diffusion weighted images reveal no hyperintensities to suggest acute cerebral infarction. The ventricles are normal in position without evidence of hydrocephalus with a slitlike appearance. The paranasal sinuses are normal with no air-fluid levels. The visualized portions of the mastoids are unremarkable. The orbits appear normal. Normal flow voids are demonstrated in the carotid arteries and basilar artery. CERVICAL SPINE: There is diffuse pachymeningeal thickening and enhancement. The alignment of the cervical spine is normal. Vertebral bodies demonstrate normal signal intensity on all sequences. No acute fracture is identified. The craniocervical junction is normal. The spinal cord demonstrates normal signal intensity on all sequences. No soft tissue abnormality is identified. Normal signal voids are present in the vertebral arteries. Multilevel degenerative disc disease, greatest at C5-C6 with diffuse disc bulge effacing the anterior thecal sac without severe spinal canal stenosis.. There is mild multilevel facet arthropathy. Ligamentum flavum hypertrophy/infolding at C6-7 effaces the posterior thecal sac without severe spinal canal stenosis. There is mild multilevel uncovertebral joint disease. There is moderate left and mild right neural foraminal stenosis at C5-C6. There is mild spinal canal stenosis at C5-C6. THORACIC SPINE: There is diffuse thickening and enhancement of the meninges. On axial images, there is a thin dorsal crescent shaped region of increased T2 hyperintensity (relative to CSF) best demonstrated on series 13 image 38, immediately anterior to some prominent epidural fat. There is enhancement along the anterior margin which most likely represents underlying thickening packing meninges. The region of axial contrast enhancement through the region is thinner than the T2 signal abnormality suggesting possible fluid in the epidural space. The fluid collection extends from T8 inferiorly to T9-10. On sagittal STIR images, striated dorsal epidural signal abnormality is seen extending from T1-T6 with subtle differential signal intensity between the CSF anterior to the striation and possible fluid or pachymeningeal thickening dorsal to the striation (series 10 image 12). There is prominence of the upper to mid thoracic dorsal epidural fat which suppresses on STIR, most prominent from T5-T8. The dorsal fluid collection extends segmentally into the lumbar spine to L4, described below. The alignment of the thoracic spine is normal. 8mm lesion in the T1 vertebral body which is T1 and T2 hyperintense without suppression on STIR sequences, possibly representing an atypical hemangioma. There are no compression fractures. The spinal cord demonstrates normal signal intensity on all sequences. Mild multilevel intervertebral disc desiccation. No sharp posterior endplate osteophytes are seen indenting the thecal sac in this patient with suspected CSF leak. Central/right paracentral disc protrusions at T12-L1. There is mild multilevel facet arthropathy. There is no neuroforaminal stenosis. There is no spinal canal stenosis. LUMBAR SPINE: There is diffuse thickening and enhancement of the meninges. A crescentic dorsal fluid collection, similar to that seen in the thoracic spine, is seen extending from T12-L4 (series 22, image 9). The alignment of the lumbar spine is normal. 9 mm lesion in the T12 vertebral body which is T1 and T2 hyperintense without suppression on STIR sequences, possibly representing an atypical hemangioma. There are no compression fractures. The conus medullaris terminates at the level of L2-3. The distal spinal cord signal intensity is normal. Disc bulge with superimposed left paracentral/subarticular disc protrusion with an annular fissure at L1-L2. Disc bulge with superimposed central disc protrusion at L5-S1. Trace right L5-S1 lateral endplate Modic type I degenerative marrow edema seen on series 21 image 5. Otherwise small disc bulges in the lumbar spine. There is mild bilateral multilevel facet arthropathy. There is moderate right and mild left neuroforaminal stenosis at L5-S1 and mild bilateral neural foraminal stenosis at L4-L5. There is no spinal canal or lateral recess stenosis. No lumbar nerve root or cauda equina impingement. Ligaments and muscles are normal. Gallstones are present within a markedly distended gallbladder. Left renal cyst. IMPRESSION: 1. Findings consistent with intracranial hypotension. 2. Diffuse spinal pachymeningeal hypertrophy and enhancement. Suspected dorsal likely extra-dural collection beginning at approximately T2-T3 level extending inferiorly to the L4 level. This is best seen/most prominent at T6-T7 dorsally. Findings are suspicious for CSF leak. A dedicated CSF leak protocol MRI is available at [facility]. CT digital subtraction myelography could be performed at [facility] as an alternative. Either these studies may be useful for localizing no CSF leak (assuming ineffective blood patch). 3. Cholelithiasis with markedly distended gallbladder. Recommend clinical correlation and fasting ultrasound for further evaluation. Dictated by: Mulu Cabral DO The radiology attending physician has personally reviewed this study, and had reviewed and/or edited this written report and agrees with it. Electronically signed by: Maycol Grove MD Perry Hugo Jose Luis DO IMG MRI PROCEDURES Final Result * MRI Brain W WO Contrast (08/14/2024 8:50 PM FIXED INTEREST DEALER) Anatomical Region Laterality Modality Head and Neck N/A Magnetic Resonan ce 08/15/2024 8:32 AM FIXED INTEREST DEALER Impressions 08/15/2024 9:11 AM FIXED INTEREST DEALER 1. Findings consistent with intracranial hypotension. 2. Diffuse spinal pachymeningeal hypertrophy and enhancement. Suspected dorsal likely extra-dural collection beginning at approximately T2-T3 level extending inferiorly to the L4 level. This is best seen/most prominent at T6-T7 dorsally. Findings are suspicious for CSF leak. A dedicated CSF leak protocol MRI is available at [facility]. CT digital subtraction myelography could be performed at [facility] as an alternative. Either these studies may be useful for localizing no CSF leak (assuming ineffective blood patch). 3. Cholelithiasis with markedly distended gallbladder. Recommend clinical correlation and fasting ultrasound for further evaluation. Dictated by: Mulu Cabral DO The radiology attending physician has personally reviewed this study, and had reviewed and/or edited this written report and agrees with it. Electronically signed by: Maycol Grove MD Narrative 08/15/2024 9:11 AM FIXED INTEREST DEALER EXAMINATION: 1. Magnetic resonance imaging (MRI) of the brain and brainstem without and with contrast 2. Magnetic resonance imaging (MRI) of the cervical spine without and with contrast 3. Magnetic resonance imaging (MRI) of the thoracic spine without and with contrast 4. 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 Multiplanar multi-weighted MRI of the cervical spine was performed without and with intravenous contrast using the standard protocol. Multiplanar multi-weighted MRI of the thoracic was performed without and with intravenous contrast using the standard protocol. Multiplanar multi-weighted MRI of the lumbar spine was performed without and with intravenous contrast using the standard protocol. Contrast information: 13 mL Gadoterate Meglumine COMPARISON: CT head dated 08/14/2023. FINDINGS: BRAIN: Diffuse smooth dural thickening and enhancement. Trace diffuse bilateral superimposed subdural collections are not entirely excluded. Slight upward convexity of the pituitary gland. Narrowing of the mammillopontine distance and inferior displacement of the optic chiasm. The scalp and calvarium are normal. The superior sagittal sinus demonstrates normal venous flow. The corpus callosum is normal in shape and signal intensity. The posterior fossa is unremarkable. Diffusion weighted images reveal no hyperintensities to suggest acute cerebral infarction. The ventricles are normal in position without evidence of hydrocephalus with a slitlike appearance. The paranasal sinuses are normal with no air-fluid levels. The visualized portions of the mastoids are unremarkable. The orbits appear normal. Normal flow voids are demonstrated in the carotid arteries and basilar artery. CERVICAL SPINE: There is diffuse pachymeningeal thickening and enhancement. The alignment of the cervical spine is normal. Vertebral bodies demonstrate normal signal intensity on all sequences. No acute fracture is identified. The craniocervical junction is normal. The spinal cord demonstrates normal signal intensity on all sequences. No soft tissue abnormality is identified. Normal signal voids are present in the vertebral arteries. Multilevel degenerative disc disease, greatest at C5-C6 with diffuse disc bulge effacing the anterior thecal sac without severe spinal canal stenosis.. There is mild multilevel facet arthropathy. Ligamentum flavum hypertrophy/infolding at C6-7 effaces the posterior thecal sac without severe spinal canal stenosis. There is mild multilevel uncovertebral joint disease. There is moderate left and mild right neural foraminal stenosis at C5-C6. There is mild spinal canal stenosis at C5-C6. THORACIC SPINE: There is diffuse thickening and enhancement of the meninges. On axial images, there is a thin dorsal crescent shaped region of increased T2 hyperintensity (relative to CSF) best demonstrated on series 13 image 38, immediately anterior to some prominent epidural fat. There is enhancement along the anterior margin which most likely represents underlying thickening packing meninges. The region of axial contrast enhancement through the region is thinner than the T2 signal abnormality suggesting possible fluid in the epidural space. The fluid collection extends from T8 inferiorly to T9-10. On sagittal STIR images, striated dorsal epidural signal abnormality is seen extending from T1-T6 with subtle differential signal intensity between the CSF anterior to the striation and possible fluid or pachymeningeal thickening dorsal to the striation (series 10 image 12). There is prominence of the upper to mid thoracic dorsal epidural fat which suppresses on STIR, most prominent from T5-T8. The dorsal fluid collection extends segmentally into the lumbar spine to L4, described below. The alignment of the thoracic spine is normal. 8mm lesion in the T1 vertebral body which is T1 and T2 hyperintense without suppression on STIR sequences, possibly representing an atypical hemangioma. There are no compression fractures. The spinal cord demonstrates normal signal intensity on all sequences. Mild multilevel intervertebral disc desiccation. No sharp posterior endplate osteophytes are seen indenting the thecal sac in this patient with suspected CSF leak. Central/right paracentral disc protrusions at T12-L1. There is mild multilevel facet arthropathy. There is no neuroforaminal stenosis. There is no spinal canal stenosis. LUMBAR SPINE: There is diffuse thickening and enhancement of the meninges. A crescentic dorsal fluid collection, similar to that seen in the thoracic spine, is seen extending from T12-L4 (series 22, image 9). The alignment of the lumbar spine is normal. 9 mm lesion in the T12 vertebral body which is T1 and T2 hyperintense without suppression on STIR sequences, possibly representing an atypical hemangioma. There are no compression fractures. The conus medullaris terminates at the level of L2-3. The distal spinal cord signal intensity is normal. Disc bulge with superimposed left paracentral/subarticular disc protrusion with an annular fissure at L1-L2. Disc bulge with superimposed central disc protrusion at L5-S1. Trace right L5-S1 lateral endplate Modic type I degenerative marrow edema seen on series 21 image 5. Otherwise small disc bulges in the lumbar spine. There is mild bilateral multilevel facet arthropathy. There is moderate right and mild left neuroforaminal stenosis at L5-S1 and mild bilateral neural foraminal stenosis at L4-L5. There is no spinal canal or lateral recess stenosis. No lumbar nerve root or cauda equina impingement. Ligaments and muscles are normal. Gallstones are present within a markedly distended gallbladder. Left renal cyst. Procedure Note Maycol Grove MD PhD - 08/15/2024 EXAMINATION: 1. Magnetic resonance imaging (MRI) of the brain and brainstem without and with contrast 2. Magnetic resonance imaging (MRI) of the cervical spine without and with contrast 3. Magnetic resonance imaging (MRI) of the thoracic spine without and with contrast 4. 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 Multiplanar multi-weighted MRI of the cervical spine was performed without and with intravenous contrast using the standard protocol. Multiplanar multi-weighted MRI of the thoracic was performed without and with intravenous contrast using the standard protocol. Multiplanar multi-weighted MRI of the lumbar spine was performed without and with intravenous contrast using the standard protocol. Contrast information: 13 mL Gadoterate Meglumine COMPARISON: CT head dated 08/14/2023. FINDINGS: BRAIN: Diffuse smooth dural thickening and enhancement. Trace diffuse bilateral superimposed subdural collections are not entirely excluded. Slight upward convexity of the pituitary gland. Narrowing of the mammillopontine distance and inferior displacement of the optic chiasm. The scalp and calvarium are normal. The superior sagittal sinus demonstrates normal venous flow. The corpus callosum is normal in shape and signal intensity. The posterior fossa is unremarkable. Diffusion weighted images reveal no hyperintensities to suggest acute cerebral infarction. The ventricles are normal in position without evidence of hydrocephalus with a slitlike appearance. The paranasal sinuses are normal with no air-fluid levels. The visualized portions of the mastoids are unremarkable. The orbits appear normal. Normal flow voids are demonstrated in the carotid arteries and basilar artery. CERVICAL SPINE: There is diffuse pachymeningeal thickening and enhancement. The alignment of the cervical spine is normal. Vertebral bodies demonstrate normal signal intensity on all sequences. No acute fracture is identified. The craniocervical junction is normal. The spinal cord demonstrates normal signal intensity on all sequences. No soft tissue abnormality is identified. Normal signal voids are present in the vertebral arteries. Multilevel degenerative disc disease, greatest at C5-C6 with diffuse disc bulge effacing the anterior thecal sac without severe spinal canal stenosis.. There is mild multilevel facet arthropathy. Ligamentum flavum hypertrophy/infolding at C6-7 effaces the posterior thecal sac without severe spinal canal stenosis. There is mild multilevel uncovertebral joint disease. There is moderate left and mild right neural foraminal stenosis at C5-C6. There is mild spinal canal stenosis at C5-C6. THORACIC SPINE: There is diffuse thickening and enhancement of the meninges. On axial images, there is a thin dorsal crescent shaped region of increased T2 hyperintensity (relative to CSF) best demonstrated on series 13 image 38, immediately anterior to some prominent epidural fat. There is enhancement along the anterior margin which most likely represents underlying thickening packing meninges. The region of axial contrast enhancement through the region is thinner than the T2 signal abnormality suggesting possible fluid in the epidural space. The fluid collection extends from T8 inferiorly to T9-10. On sagittal STIR images, striated dorsal epidural signal abnormality is seen extending from T1-T6 with subtle differential signal intensity between the CSF anterior to the striation and possible fluid or pachymeningeal thickening dorsal to the striation (series 10 image 12). There is prominence of the upper to mid thoracic dorsal epidural fat which suppresses on STIR, most prominent from T5-T8. The dorsal fluid collection extends segmentally into the lumbar spine to L4, described below. The alignment of the thoracic spine is normal. 8mm lesion in the T1 vertebral body which is T1 and T2 hyperintense without suppression on STIR sequences, possibly representing an atypical hemangioma. There are no compression fractures. The spinal cord demonstrates normal signal intensity on all sequences. Mild multilevel intervertebral disc desiccation. No sharp posterior endplate osteophytes are seen indenting the thecal sac in this patient with suspected CSF leak. Central/right paracentral disc protrusions at T12-L1. There is mild multilevel facet arthropathy. There is no neuroforaminal stenosis. There is no spinal canal stenosis. LUMBAR SPINE: There is diffuse thickening and enhancement of the meninges. A crescentic dorsal fluid collection, similar to that seen in the thoracic spine, is seen extending from T12-L4 (series 22, image 9). The alignment of the lumbar spine is normal. 9 mm lesion in the T12 vertebral body which is T1 and T2 hyperintense without suppression on STIR sequences, possibly representing an atypical hemangioma. There are no compression fractures. The conus medullaris terminates at the level of L2-3. The distal spinal cord signal intensity is normal. Disc bulge with superimposed left paracentral/subarticular disc protrusion with an annular fissure at L1-L2. Disc bulge with superimposed central disc protrusion at L5-S1. Trace right L5-S1 lateral endplate Modic type I degenerative marrow edema seen on series 21 image 5. Otherwise small disc bulges in the lumbar spine. There is mild bilateral multilevel facet arthropathy. There is moderate right and mild left neuroforaminal stenosis at L5-S1 and mild bilateral neural foraminal stenosis at L4-L5. There is no spinal canal or lateral recess stenosis. No lumbar nerve root or cauda equina impingement. Ligaments and muscles are normal. Gallstones are present within a markedly distended gallbladder. Left renal cyst. IMPRESSION: 1. Findings consistent with intracranial hypotension. 2. Diffuse spinal pachymeningeal hypertrophy and enhancement. Suspected dorsal likely extra-dural collection beginning at approximately T2-T3 level extending inferiorly to the L4 level. This is best seen/most prominent at T6-T7 dorsally. Findings are suspicious for CSF leak. A dedicated CSF leak protocol MRI is available at [facility]. CT digital subtraction myelography could be performed at [facility] as an alternative. Either these studies may be useful for localizing no CSF leak (assuming ineffective blood patch). 3. Cholelithiasis with markedly distended gallbladder. Recommend clinical correlation and fasting ultrasound for further evaluation. Dictated by: Mulu Cabral DO The radiology attending physician has personally reviewed this study, and had reviewed and/or edited this written report and agrees with it. Electronically signed by: Maycol Grove MD Perry Amaya DO IM MRI PROCEDURES Final Result * CT Head WO Contrast (08/14/2024 11:52 AM FIXED INTEREST DEALER) Anatomical Region Laterality Modality Head and Neck N/A Computed Tomogra phy 08/14/2024 12:0 8 PM FIXED INTEREST DEALER Impressions 08/14/2024 12:08 PM FIXED INTEREST DEALER 1. Crowding of the suprasellar cistern with suspected narrowing of the mamillopontine distance suboptimally characterized. Findings are nonspecific but could be seen in the setting of intracranial hypotension. MRI the brain with and without contrast is recommended for further evaluation as well as to exclude underlying lesion causing mass effect or edema. 2. Thin CSF density fluid overlying the convexities possibly related to volume loss versus chronic subdural hematomas or hygromas which could be seen in the setting of intracranial hypotension. Attention on MRI. 3. Otherwise no CT evidence of acute intracranial abnormality. Electronically signed by: Emmett Ballard M.D. Narrative 08/14/2024 12:08 PM FIXED INTEREST DEALER EXAM:CT HEAD WO CONTRAST INDICATION: Headache, new onset (Age >= 51y) positional headache- worse when sitting up, hx of CSF leak many years ago, spontaneous COMPARISON: None TECHNIQUE: Standard noncontrast axial CT sections through the head. FINDINGS: Brain Parenchyma: No acute hemorrhage. No loss of rodriguez-white matter differentiation. Mineralization seen in the basal ganglia bilaterally. There is crowding of the suprasellar cistern with suspected decreased mamminopontine distance suboptimally characterized. No midline shift. Mild calcifications of the cavernous internal carotid arteries bilaterally. Ventricles and Sulci: Symmetric slitlike caliber of the ventricles. Extra-Axial Spaces: Thin CSF density fluid overlying the frontal lobes bilaterally without significant mass effect. Orbits: Intact. Paranasal Sinuses: Clear. Mastoid Air Cells: Clear. Cranium: Intact. Extracranial Soft Tissues: No acute abnormality. Procedure Note Emmett Ballard MD - 08/14/2024 EXAM:CT HEAD WO CONTRAST INDICATION: Headache, new onset (Age >= 51y) positional headache- worse when sitting up, hx of CSF leak many years ago, spontaneous COMPARISON: None TECHNIQUE: Standard noncontrast axial CT sections through the head. FINDINGS: Brain Parenchyma: No acute hemorrhage. No loss of rodriguez-white matter differentiation. Mineralization seen in the basal ganglia bilaterally. There is crowding of the suprasellar cistern with suspected decreased mamminopontine distance suboptimally characterized. No midline shift. Mild calcifications of the cavernous internal carotid arteries bilaterally. Ventricles and Sulci: Symmetric slitlike caliber of the ventricles. Extra-Axial Spaces: Thin CSF density fluid overlying the frontal lobes bilaterally without significant mass effect. Orbits: Intact. Paranasal Sinuses: Clear. Mastoid Air Cells: Clear. Cranium: Intact. Extracranial Soft Tissues: No acute abnormality. IMPRESSION: 1. Crowding of the suprasellar cistern with suspected narrowing of the mamillopontine distance suboptimally characterized. Findings are nonspecific but could be seen in the setting of intracranial hypotension. MRI the brain with and without contrast is recommended for further evaluation as well as to exclude underlying lesion causing mass effect or edema. 2. Thin CSF density fluid overlying the convexities possibly related to volume loss versus chronic subdural hematomas or hygromas which could be seen in the setting of intracranial hypotension. Attention on MRI. 3. Otherwise no CT evidence of acute intracranial abnormality. Electronically signed by: Emmett Ballard M.D. Nisha Glover MD IMG CT PROCEDURES Final Result * eGFR (08/14/2024 11:14 AM FIXED INTEREST DEALER) eGFR >90 >=60 mL/min/1. 73 m2 Comment: Interpretive Data Reference Interval Normal >/= 90 mL/min/1.73m2 Mildly decreased* 60 - 89 mL/min/1.73m2 Mildly to moderately decreased 45 - 59 mL/min/1.73m2 Moderately to severely decreased 30 - 44 mL/min/1.73m2 Severely decreased 15 - 29 mL/min/1.73m2 Kidney Failure < 15 mL/min/1.73m2 *Relative to young adult level Estimated glomerular filtration rate is determined by the 2020 CKD-EPI equation recommended by the [employer] (A Unifying Approach to GFR Estimation: Recommendations of the [employer]F-ASK Task Force on Reassessing the Inclusion of Race in Diagnosing Kidney Disease, JASN 2020). The CKD-EPI equation should not be used for patients with unstable renal function and has not been validated in children and those over 70. Current interpretive data was last reviewed 2021. Blood 08/14/2024 11:1 4 AM FIXED INTEREST DEALER 08/14/2024 11:40 AM FIXED INTEREST DEALER Nisha Glover MD LAB BLOOD ORDERABLES Final Resu lt [facility] [id number] [place] [address] * Differential, auto (08/14/2024 11:14 AM FIXED INTEREST DEALER) Neutrophil abs 5.4 1.5 - 6.5 K/cumm Imm gran abs 0.0 0.0 - 0.1 K/cumm [facility] Lymphocyte abs 1.3 0.8 - 3.3 K/cumm [facility] Monocyte abs 0.4 0.2 - 0.8 K/cumm [facility] Eosinophil abs 0.1 0.0 - 0.5 K/cumm [facility] Basophil abs 0.0 0.0 - 0.1 K/cumm [facility] Neutrophil pct 75.0 % [facility] Comment: Interpretive Data Percent cell count reference ranges are not reported, since discordance with absolute values may lead to misinterpretation of CBC data. Current Interpretive Data was last revised on 2017. Imm gran pct 0.4 % [facility] Comment: Interpretive Data Percent cell count reference ranges are not reported, since discordance with absolute values may lead to misinterpretation of CBC data. Current Interpretive Data was last revised on 2017. Lymphocyte pct 17.9 % [facility] Comment: Interpretive Data Percent cell count reference ranges are not reported, since discordance with absolute values may lead to misinterpretation of CBC data. Current Interpretive Data was last revised on 2017. Monocyte pct 5.5 % [facility] Comment: Interpretive Data Percent cell count reference ranges are not reported, since discordance with absolute values may lead to misinterpretation of CBC data. Current Interpretive Data was last revised on 2017. Eosinophil pct 0.8 % [facility] Comment: Interpretive Data Percent cell count reference ranges are not reported, since discordance with absolute values may lead to misinterpretation of CBC data. Current Interpretive Data was last revised on 2017. Basophil pct 0.4 % [facility] Comment: Interpretive Data Percent cell count reference ranges are not reported, since discordance with absolute values may lead to misinterpretation of CBC data. Current Interpretive Data was last revised on 2017. Blood 08/14/2024 11:1 4 AM FIXED INTEREST DEALER 08/14/2024 11:40 AM FIXED INTEREST DEALER Nisha Glover MD LAB BLOOD ORDERABLES Final Resu lt Performing Organization Address [facility] Co de Phone Number [facility] [address] Department [employer] [place], [place] [id number] * CBC with auto differential (08/14/2024 11:14 AM FIXED INTEREST DEALER) Pathologist [facility] WBC 7.2 3.8 - 9.9 K/cumm Hgb 14.4 11.9 - 15.5 g/dL [facility] Hct 42.6 35.6 - 45.5 % [facility] Plt 229 150 - 400 K/cumm [facility] MPV 10.6 9.1 - 12.3 fL [facility] RBC 4.58 3.90 - 5.20 M/cumm [facility] MCV 93.0 81.3 - 96.4 fL [facility] MCH 31.4 27.1 - 33.3 pg [facility] MCHC 33.8 32.3 - 35.7 g/dL [facility] RDW CV 12.2 11.1 - 14.9 % [facility] RDW SD 42.1 35.7 - 48.1 fL [facility] NRBC abs 0.00 0.00 - 0.01 K/cumm [facility] Blood 08/14/2024 11:1 4 AM FIXED INTEREST DEALER 08/14/2024 11:40 AM FIXED INTEREST DEALER Nisha Glover MD LAB BLOOD ORDERABLES Final Resu lt Performing Organization Address City/[facility]/ZIP Co de Phone Number [facility] [address] [place] [address] * Basic metabolic panel (08/14/2024 11:14 AM FIXED INTEREST DEALER) Pathologist [facility] Sodium 143 135 - 145 mmol/L Potassium, pl 4.2 3.3 - 4.9 mmol/L [facility] Chloride 108 97 - 110 mmol/L [facility] CO2 24 22 - 32 mmol/L [facility] Anion gap 11 2 - 15 mmol/L [facility] BUN 11 6 - 25 mg/dL [facility] Creatinine 0.69 0.60 - 1.10 mg/dL [facility] Glucose 125 70 - 199 mg/dL [facility] Comment: Interpretive Data Fasting glucose >/= 126 mg/dl is diagnostic for diabetes. Fasting is defined as no caloric intake for at least 8 hours. Fasting glucose between 100 mg/dl to 125 mg/dl is diagnostic of prediabetes. In a patient with classic symptoms of hyperglycemia or hyperglycemic crisis, a random glucose >/= 200 mg/dl is diagnostic for diabetes. In the absence of unequivocal hyperglycemia, results should be confirmed by repeat testing. The classification and Diagnosis of Diabetes Diabetes Care 2021; 46: S19-S40. Current interpretive data was last revised 2022. Calcium 9.3 8.5 - 10.3 mg/dL [facility] Blood 08/14/2024 11:1 4 AM FIXED INTEREST DEALER 08/14/2024 11:40 AM FIXED INTEREST DEALER us Nisha Glover MD LAB BLOOD ORDERABLES Final Resu lt [facility] [address] [place] [address] * Screening Mammogram Bilateral W Nigel W Implants (10/18/2023 7:53 AM CDT) Anatomical Region Laterality Modality Breast Bilateral Mammography 10/18/2023 8:03 AM CDT Impressions 10/18/2023 8:03 AM CDT There is no mammographic evidence of malignancy. A 1 year screening mammogram is recommended. BI-RADS: 1 - Negative. The patient has been or will be contacted. The patient will be entered into a reminder system with a target due date of 1 year for her next mammogram. Electronically signed by: SUKHJINDER LANGFORD Narrative 10/18/2023 8:03 AM CDT EXAMINATION: SCREENING MAMMOGRAM BILATERAL W NIGEL W IMPLANTS ORDERING HEALTHCARE PROVIDER: JOE MONTAGUE HISTORY: Routine screening mammography. COMPARISON: 10/13/2022, 07/16/2019. TECHNIQUE: CC and MLO views of both breasts, including implant-displaced views, were obtained with digital technique using digital breast tomosynthesis with C view. Computer aided detection was utilized. FINDINGS: DENSITY: The breasts have scattered areas of fibroglandular density. BREASTS: Bilateral subpectoral silicone breast implants appear intact. The presence of implants limits sensitivity of mammography. There is no new suspicious finding in either breast on mammogram. Joe Montague MD IMG MAMMO PROCEDURES Final Result from Last 3 Months or Most Recently Relevant to Health Maintenance Insurance [facility] [employer]US [place] [id number] Advance Directives For more information, please contact: [phone] * Full Code (Latest Code Status on File) Date Activated Date Inactivated Comments 08/16/2024 7:43 PM 08/19/2024 6:08 PM * Full Code Date Activated Date Inactivated Comments 08/14/2024 5:48 PM 08/16/2024 6:50 PM Care Teams Yardage Control Operator Forming Relationship Specialty Start Date End Date Irma Valenzuela NP [address] [place] [address] PCP - General Nurse Practitioner 09/30/22
--- OUTSIDE RECORDS SUMMARY | 2024-10-21 09:32 | XMS_ITS | Encounter Summary ---
Author Organization [facility] Healthcare Address [address] [place] [address] Care Team Providers Care Psychological Assistant Name Role Phone Irma Valenzuela NP Primary Care Provider [phone] Encounter Details Date Type Department Care Team ([facility] Contact Info) Description 10/18/2024 Results Follow-Up [facility] [address] [place] [id number] Joe Montague MD [address] [place] [address] [address] [place] [address] Social History Tobacco Use Types Packs/Day Years Used Date Smoking Tobacco: Never Smokeless Tobacco: Never Alcohol Use Standard Drinks/Week Comments No 0 [...] on file 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
--- OUTSIDE RECORDS SUMMARY | 2024-10-21 09:32 | XMS_ITS | Clinical Summary ---
Author Organization [facility] [address] [place] Address [address] [place] [address] Care Team Providers Care Custodial Aide Name Role Phone Noel Barnes APRN, SENIOR SHAREPOINT ARCHITECT Primary Care Provider + Arron Oswald MD Unavailable [phone] Allergies Active Allergy Reactions Criticality Noted Date Comments Sulfamethoxazole Rash 02/28/2024 Medications fluticasone (FLONASE) 50 MCG/ACT Suspension 1 [place] by Nasal route daily. Use in each nostril as directed. Active estradiol (Alaina) 0.0375 MG/24HR PATCH BIWEEKLY APPLY 1 PATCH TOPICALLY TO SKIN TWICE WEEKLY Active Family History Medical History Relation Name Comments No Known Problems Father No Known Problems Mother Relation Name Status Comments Father Alive Mother Alive Social History Tobacco Use Types Packs/Day Years Used Date Smoking Tobacco: Never Smokeless Tobacco: Never Tobacco Cessation:Counseling Given: Not Answered Alcohol Use Standard Drinks/Week Comments Yes 0 (1 standard drink = 0.6 oz pur e alcohol) social Comments Unknown Sex and Gender Information Value Date Recorded Sex Assigned at Not on file Legal Sex Female 11:55 PM CDT Gender Identity Not on file Sexual Orientation Not on file Last Filed Vital Signs Vital Sign Reading Time Taken Comments Blood Pressure 120/80 03/11/2024 2:34 PM CDT Pulse 80 03/11/2024 2:34 PM CDT Temperature 36.5 C (97.7 F) 03/11/2024 2:34 PM CDT Respiratory Rate 16 03/11/2024 2:34 PM CDT Oxygen Saturation 98% 03/11/2024 2:34 PM CDT Inhaled Oxygen Concentration - - Weight 60.2 kg (132 lb 12.8 oz) 03/11/2024 2:34 PM CDT Height 165.1 cm (5' 5 ) 03/11/2024 2:34 PM CDT Body Mass Index 22.1 03/11/2024 2:34 PM CDT Plan of Treatment Health Maintenance Due Date Last Done Comments Hepatitis C Virus (HCV) Screening 1966 TdaP Immunization 1966 Hepatitis B Immunization (1 of 3 - 19+ 3-dose series) 1985 Pneumococcal Immunization (50+ years) (1 of 2 - PCV) 1985 Pap Smear 1987 Cervical Cancer Screening (CCS) 1996 HPV/Cotest 1996 Colonoscopy 2011 Colorectal Cancer Screening 2011 Cologuard 2016 Immunochemical Fecal Occult Blood 2016 Zoster Immunization (1 of 2) 2016 Influenza Immunization (#1) 02/25/202403/27, 04/09/2021, 04/13/2020, Additional history exists SARS-COV-2 Immunization ( season) 2024 06/02/2021, 10/02/2020, 09/02/2020 Mammogram 10/17/2024 10/18/2023, 09/25, 07/16/2019, Additional history exists Respiratory Syncytial Virus (RSV) Immunization (Adult) (1 - 1-dose 75+ series) 2041 Meningococcal Immunization (ACWY) Aged Out No longer eligible based on patient's age to complete this topic Rotavirus Immunization Aged Out No lo nger eligible based on patient's age to complete this topic [place] [address] [place] [address] Care Teams Custodial Aide Relationship Specialty Start Date End Date Noel Barnes, COURT MONITOR, SENIOR SHAREPOINT ARCHITECT [address] [place] [address] PCP - General Advanced Practice Nurse 02/28/24 Arron Oswald MD [address] [place] [address] Consulting Physician Neurology 03/11/24
--- OUTSIDE RECORDS SUMMARY | 2024-10-21 09:32 | XMS_ITS | Referral Summary ---
Author Organization [facility] Medical Office Building B Address [address] [place] [address] Care Team Providers Care Lawyers Name Role Phone Irma Valenzuela NP Primary Care Provider [phone] Encounters Date Type Department Care Team Description 10/18/2024 Results Follow-Up [facility] [address] [phone] Joe Montague MD 10/16/2024 2:30 PM CDT Procedure visit [facility] at [address] [address] Stephanie Portillo Au.D. Sensorineural hearing loss (SNHL) of left ear with unrestricted hearing of right ear (Primary Dx); Disorder of Eustachian tube, unspecified laterality 10/16/2024 2:15 PM CDT Office Visit [facility] - [address] [phone] Aundrea Aviles DO Disorder of Eustachian tube, unspecified laterality 10/07/2024 Telephone [facility] Gastro[facility] at [address] [phone] Jesus Harris DO 10/07/2024 9:30 AM CDT Office Visit [facility] [address] [phone] Joe Montague MD Well woman exam (Primary Dx); Encounter for screening mammogram for malignant neoplasm of breast; Screening for malignant neoplasm of colon; Screening for colon cancer 10/03/2024 Telephone [facility] Neuro[facility] 6th [place] [address] [place] [address] Landon Carrillo MD 10/03/2024 3:15 PM CDT Office Visit [facility] Neurosurgery [address] [place] [address] 6th [place] [address] [place] [address] Landon Carrillo MD 09/14/2024 Telephone [facility] Neurosurgery [address] [place] [address] [place] [address] [place] [address] Landon Carrillo MD 09/13/2024 2:30 PM CDT Office Visit [facility] Neurosurgery [address] [facility] Floor 1, [address] [place] [phone] Kathryn Hoover MD CSF leak (Primary Dx) 08/19/2024 Telephone [facility] Neurosurgery [facility] Floor 1, [address] [place] [phone] Maria Isabel Cross RN 08/16/2024 6:50 PM OUTDOOR PURSUITS INSTRUCTOR - 08/19/2024 2:03 PM OUTDOOR PURSUITS INSTRUCTOR Hospital Encounter [facility] [address] [place] [address] Kathryn Hoover MD CSF leak [G96.00] (Primary Dx) Discharge Disposition: Discharge to home or self care 08/14/2024 10:53 AM OUTDOOR PURSUITS INSTRUCTOR - 08/16/2024 6:15 PM OUTDOOR PURSUITS INSTRUCTOR Hospital Encounter [facility] [address] [place] [phone] Nisha Glover MD Madej, Adam Benjamin, DO Other complicated headache syndrome (Primary Dx); CSF leak Discharge Disposition: Discharge to other type of institution with plan redmit from Last 3 Months Allergies Active Allergy Reactions Criticality Noted Date Comments Sulfamethoxazole-Trimethoprim Rash Medium 2022 Sulfamethoxazole Rash Medium 02/28/2024 Medications levonorgestreL (Kyleena) IUD 1 each by intrauterine route once Paid per insurance. Lot # [id number], Exp date: . Insertion date: 12-05-22. Active [...] OF TYLENOL PER DAY 5 025 Discontin ued(Other ) Active Problems Problem Noted Date Diagnosed Date Disorder of eustachian tube 10/16/2024 Assessment & Plan (10/16/2024 4:41 PM CDT): Hearing test today - normal hearing CSF leak 08/15/2024 Headache 08/14/2024 Screening for malignant neoplasm of colon 2018 Overview (07/08/2019): Added automatically from request for surgery [id number] No pathologic diagnosis 11/09/2013 Overview (09/28/2016): No diagnosis Resolved Problems Problem Noted Date Diagnosed Date Resolved Date Screening for malignant neoplasm of colon 06/04/2019 06/05/2019 Overview (06/04/2019): Added automatically from request for surgery [id number] Immunizations Immunization Administration Dates Next Due Influenza, Quadrivalent, Rec ombinant, Egg Free, Preservative Free, Intramuscular 04/13/2020 Influenza, Quadrivalent, Spl it, Preservative Free, Intramuscular 03/13/2018 Influenza, Trivalent, IM (MDV) 04/09/2021 Social History Tobacco Use Types Packs/Day Years [...] on file Legal Sex Female 2:15 AM OUTDOOR PURSUITS INSTRUCTOR Gender Identity Not on file Sexual Orientation [...] 10/16/2024 1:52 PM CDT Plan of Treatment Not on file Medical Devices Implanted Type 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 Substation Maintenance Technician Device Identifier Shelf Expiration Date Model / Serial / Lot Breast Breast Bilateral: Breast Procedures Procedure Name Priority Date/Time Associated Diagnosis Comments AUDIOGRAM Routine 10/16/2024 2:30 PM CDT Sensorineural hearing loss (SNHL) of left ear with unrestricted hearing of right ear PAP ONLY Routine 10/07/2024 10:30 AM CDT Well woman exam PAIN MGMT IMAGING EPIDURAL BLOOD PATCH Routine 08/19/2024 10:51 AM OUTDOOR PURSUITS INSTRUCTOR EGFR Routine 08/18/2024 7:45 PM OUTDOOR PURSUITS INSTRUCTOR BASIC METABOLIC PANEL Routine 08/18/2024 7:45 PM OUTDOOR PURSUITS INSTRUCTOR CBC WITHOUT DIFFERENTIAL Routine 08/18/2024 7:45 PM OUTDOOR PURSUITS INSTRUCTOR MR TOTAL SPINE CSF LEAK WO IP Routine 08/18/2024 8:47 AM OUTDOOR PURSUITS INSTRUCTOR EGFR Routine 08/17/2024 9:47 PM OUTDOOR PURSUITS INSTRUCTOR BASIC METABOLIC PANEL Routine 08/17/2024 9:47 PM OUTDOOR PURSUITS INSTRUCTOR CBC WITHOUT DIFFERENTIAL Routine 08/17/2024 9:47 PM OUTDOOR PURSUITS INSTRUCTOR URINALYSIS, MICROSCOPIC ONLY STAT 08/17/2024 7:56 AM OUTDOOR PURSUITS INSTRUCTOR URINALYSIS AND REFLEX TO MICROSCOPIC AND CULTURE STAT 08/17/2024 7:56 AM OUTDOOR PURSUITS INSTRUCTOR B CHECK SAMPLE STAT 08/16/2024 11:03 PM OUTDOOR PURSUITS INSTRUCTOR ECG 12-LEAD STAT 08/16/2024 10:01 PM OUTDOOR PURSUITS INSTRUCTOR POCT GLUCOSE DEVICE Routine 08/16/2024 9 :50 PM OUTDOOR PURSUITS INSTRUCTOR EGFR STAT 08/16/2024 9:47 PM OUTDOOR PURSUITS INSTRUCTOR CBC WITHOUT DIFFERENTIAL Routine 08/16/2024 9:47 PM OUTDOOR PURSUITS INSTRUCTOR PROTIME-INR STAT 08/16/2024 9:47 PM OUTDOOR PURSUITS INSTRUCTOR APTT STAT 08/16/2024 9:47 PM OUTDOOR PURSUITS INSTRUCTOR TYPE AND SCREEN STAT 08/16/2024 9:47 PM OUTDOOR PURSUITS INSTRUCTOR CBC WITHOUT DIFFERENTIAL STAT 08/16/2024 9:47 PM OUTDOOR PURSUITS INSTRUCTOR PHOSPHORUS STAT 08/16/2024 9:47 PM OUTDOOR PURSUITS INSTRUCTOR MAGNESIUM STAT 08/16/2024 9:47 PM OUTDOOR PURSUITS INSTRUCTOR COMPREHENSIVE METABOLIC PANEL STAT 08/16/2024 9:47 PM OUTDOOR PURSUITS INSTRUCTOR XR CHEST 1 VIEW IP Routine 08/16/2024 9:33 PM OUTDOOR PURSUITS INSTRUCTOR MRI SPINE TOTAL COMPLETE W WO CONTRAST ED 08/14/2024 8:50 PM OUTDOOR PURSUITS INSTRUCTOR MRI BRAIN W WO CONTRAST ED 08/14/2024 8:50 PM OUTDOOR PURSUITS INSTRUCTOR CT HEAD WO CONTRAST ED 08/14/2024 1 1:52 AM OUTDOOR PURSUITS INSTRUCTOR EGFR STAT 08/14/2024 11:14 AM OUTDOOR PURSUITS INSTRUCTOR DIFFERENTIAL AUTO STAT 08/14/2024 11: 14 AM OUTDOOR PURSUITS INSTRUCTOR BASIC METABOLIC PANEL STAT 08/14/2024 11:14 AM OUTDOOR PURSUITS INSTRUCTOR CBC WITH AUTO DIFFERENTIAL STAT 08/14/2024 11:14 AM OUTDOOR PURSUITS INSTRUCTOR SCREENING MAMMOGRAM BILATERAL W NIGEL W IMPLANTS [...] 01 Comment:Z01.419 Performed by Comment [facility] - 01 Comment:Raysa Milian, Parts Identifier (ASCP) . . [facility] - 01 Note: [...] do occur. Test methodology Comment [facility] - 01 Comment: This liquid based ThinPrep(R) pap test was screened with the use of an image guided system. Thin prep 10/07/2024 10:3 0 AM CDT 10/07/2024 Narrative [facility] - 10/10/2024 10:11 AM CDT Performed at: [address] [place] [id number] Calciner Feeder: Yanet Durbin MD, Phone: [phone] Specimen Comment: [id number] Specimen Comment: No. of containers..01 ThinPrep Vial Joe Montague MD LAB CYTOLOGY ORDERABLES Fi nal [facility] - * Imaging Epidural Blood Patch ([id number]) (08/19/2024 10:51 AM OUTDOOR PURSUITS INSTRUCTOR) Narrative [facility] - 08/19/2024 10:52 AM OUTDOOR PURSUITS INSTRUCTOR The images from this study are not interpreted by Radiology. Please refer to the physician's procedure / OR operative note. us Wayne Best MD IMG PAIN MGMT PROCEDURES Final Result Performing Organization Address City/[facility]/ZIP Co de Phone Number [facility] * eGFR (08/18/2024 7:45 PM OUTDOOR PURSUITS INSTRUCTOR) eGFR 83 >=60 mL/min/1. 73 m2 Comment: [...] last reviewed 2021. Blood 08/18/2024 7:45 PM OUTDOOR PURSUITS INSTRUCTOR 08/18/2024 8:28 PM OUTDOOR PURSUITS INSTRUCTOR us Kathryn Hoover MD LAB BLOOD ORDERABLES Final Resul t Performing Organization Address City/[facility]/ZIP Co de Phone Number [facility] [place] [address] * CBC without differential (08/18/2024 7:45 PM OUTDOOR PURSUITS INSTRUCTOR) WBC 6.3 3.8 - 9.9 K/cumm Hgb 13.5 11.9 - 15.5 g/dL [facility] Hct 38.4 35.6 - 45.5 % [facility] Plt 211 150 - 400 K/cumm [facility] MPV 10.8 9.1 - 12.3 fL [facility] RBC 4.27 3.90 - 5.20 M/cumm [facility] MCV 89.9 81.3 - 96.4 fL [facility] MCH 31.6 27.1 - 33.3 pg [facility] MCHC 35.2 32.3 - 35.7 g/dL [facility] RDW CV 12.2 11.1 - 14.9 % [facility] RDW SD 39.8 35.7 - 48.1 fL [facility] NRBC abs 0.00 0.00 - 0.01 K/cumm [facility] Blood 08/18/2024 7:45 PM OUTDOOR PURSUITS INSTRUCTOR 08/18/2024 8:28 PM OUTDOOR PURSUITS INSTRUCTOR Kathryn Hoover MD LAB BLOOD ORDERABLES Final Resul t [facility] Department [place] [address] * Basic metabolic panel (08/18/2024 7:45 PM OUTDOOR PURSUITS INSTRUCTOR) Sodium 143 135 - 145 mmol/L Potassium, pl 3.6 3.3 - 4.9 mmol/L [facility] Chloride 107 97 - 110 mmol/L [facility] CO2 26 22 - 32 mmol/L [facility] Anion gap 10 2 - 15 mmol/L [facility] BUN 12 6 - 25 mg/dL [facility] Creatinine 0.82 0.60 - 1.10 mg/dL [facility] Glucose 82 70 - 199 mg/dL [facility] Comment: Interpretive Data Fasting glucose >/= [...] 2022. Calcium 9.3 8.5 - 10.3 mg/dL [facility] Blood 08/18/2024 7:45 PM OUTDOOR PURSUITS INSTRUCTOR 08/18/2024 8:28 PM OUTDOOR PURSUITS INSTRUCTOR Kathryn Hoover MD LAB BLOOD ORDERABLES Final Resul t [facility] [place] [address] * MR Total Spine CSF Leak WO (08/18/2024 8:47 AM OUTDOOR PURSUITS INSTRUCTOR) Anatomical Region Laterality Modality Spine N/A Magnetic Resonan ce 08/18/2024 11:5 7 AM OUTDOOR PURSUITS INSTRUCTOR Impressions 08/18/2024 12:08 PM OUTDOOR PURSUITS INSTRUCTOR Arthritic changes involving the right T3 facet with resultant dural defect and dorsal collection from CSF leak extending from T3 to L4. Dictated by: Gabriel Tran D.O. The radiology attending physician has personally reviewed this study, and had reviewed and/or edited this written report and agrees with it. Electronically signed by: Woo Berry M.D, PHD Narrative 08/18/2024 12:08 PM OUTDOOR PURSUITS INSTRUCTOR EXAMINATION: 1. Magnetic resonance imaging (MRI) of [...] Woo Berry M.D, PHD Kathryn Hoover MD [facility] MRI PROCEDURES Final Result * eGFR (08/17/2024 9:47 PM OUTDOOR PURSUITS INSTRUCTOR) eGFR 84 >=60 mL/min/1. 73 m2 Comment: [...] last reviewed 2021. Blood 08/17/2024 9:47 PM OUTDOOR PURSUITS INSTRUCTOR 08/17/2024 10:55 PM OUTDOOR PURSUITS INSTRUCTOR us Kathryn Hoover MD LAB BLOOD ORDERABLES Final Resul t [facility] [place] [address] * CBC without differential (08/17/2024 9:47 PM OUTDOOR PURSUITS INSTRUCTOR) WBC 6.2 3.8 - 9.9 K/cumm Hgb 12.7 11.9 - 15.5 g/dL [facility] Hct 36.4 35.6 - 45.5 % [facility] Plt 223 150 - 400 K/cumm [facility] MPV 11.2 9.1 - 12.3 fL [facility] RBC 4.10 3.90 - 5.20 M/cumm [facility] MCV 88.8 81.3 - 96.4 fL [facility] MCH 31.0 27.1 - 33.3 pg [facility] MCHC 34.9 32.3 - 35.7 g/dL [facility] RDW CV 12.2 11.1 - 14.9 % [facility] RDW SD 39.4 35.7 - 48.1 fL [facility] NRBC abs 0.00 0.00 - 0.01 K/cumm [facility] Blood 08/17/2024 9:47 PM OUTDOOR PURSUITS INSTRUCTOR 08/17/2024 10:57 PM OUTDOOR PURSUITS INSTRUCTOR Kathryn Hoover MD LAB BLOOD ORDERABLES Final Resul t Performing Organization Address [facility] de Phone Number [facility] Department [place] [address] * Basic metabolic panel (08/17/2024 9:47 PM OUTDOOR PURSUITS INSTRUCTOR) Sodium 143 135 - 145 mmol/L Potassium, pl 3.9 3.3 - 4.9 mmol/L [facility] Chloride 107 97 - 110 mmol/L [facility] CO2 25 22 - 32 mmol/L [facility] Anion gap 11 2 - 15 mmol/L [facility] BUN 12 6 - 25 mg/dL [facility] Creatinine 0.81 0.60 - 1.10 mg/dL [facility] Glucose 97 70 - 199 mg/dL [facility] Comment: Interpretive Data Fasting glucose >/= [...] 2022. Calcium 9.1 8.5 - 10.3 mg/dL [facility] Blood 08/17/2024 9:47 PM OUTDOOR PURSUITS INSTRUCTOR 08/17/2024 10:55 PM OUTDOOR PURSUITS INSTRUCTOR Kathryn Hoover MD LAB BLOOD ORDERABLES Final Resul t Performing Organization Address [facility] Co de Phone Number [facility] Department [place] [address] * (ABNORMAL) Urinalysis reflex to microscopic and culture Urine, clean voided (08/17/2024 7:56 AM OUTDOOR PURSUITS INSTRUCTOR) Color, ur Straw Yellow Clarity, ur Clear Clear [facility] Specific gravity, ur 1.018 1.003 - 1.030 [facility] pH, urine 5.5 [facility] Comment: Interpretive Data U rine pH is affected by diet, medications, systemic acid-base disturbances, and renal tubular function. pH may affect urinary stone formation. For example, urine pH below 6.0 may help reduce the tendency for calcium phosphate stones and pH greater than 6.0 may reduce the tendency for uric acid stone formation. Source: [facility] Current Interpretive Data was last revised on 2017 Protein, ur ql Trace Negative [facility] Glucose, ur ql Negative Negative [facility] Ketones, ur Negative Negative [facility] Bilirubin, ur Negative Negative [facility] Blood, ur Negative Negative [facility] Urobilinogen, ur <2.0 <2.0 mg/dL [facility] Nitrite, ur Negative Negative [facility] Leukocyte esterase, ur 2+(A) Negative [facility] UA reflex comment Reflex to microscopic UA will be performed. [facility] Urine, clean voided 08/17/2024 7:56 AM OUTDOOR PURSUITS INSTRUCTOR 08/17/2024 8:35 AM OUTDOOR PURSUITS INSTRUCTOR Kathryn Hoover MD LAB MICROBIOLOGY - GENERAL ORDER ADRIA Final Result [facility] Department [place] [address] * (ABNORMAL) Urinalysis, microscopic only (08/17/2024 7:56 AM OUTDOOR PURSUITS INSTRUCTOR) WBC, ur 6-10(A) 0 - 5 /HPF RBC, ur 0-2 0 - 2 /HPF [facility] Epithelial cells, squamous, ur 6-10(A) 0 - 5 /HPF [facility] Comment:Suggestive of contam ination. Consider recollection by clean catch. Bacteria, ur 1+(A) [facility] Mucous, ur Present(A) [facility] Culture Reflex Comment Reflex conditions for urine culture (WBC >10) not met. [facility] Urine, clean voided 08/17/2024 7:56 AM OUTDOOR PURSUITS INSTRUCTOR 08/17/2024 8:35 AM OUTDOOR PURSUITS INSTRUCTOR Kathryn Hoover MD LAB URINE ORDERABLES Final Resul t Performing Organization Address City/[facility] Co de Phone Number [facility] [place] [address] * Check Sample (08/16/2024 11:03 PM OUTDOOR PURSUITS INSTRUCTOR) Pathologist [facility] ABO Rh O Positive [facility] HCLL OTHER 08/16/2024 11:0 3 PM OUTDOOR PURSUITS INSTRUCTOR 08/17/2024 12:12 AM OUTDOOR PURSUITS INSTRUCTOR Kathryn Hoover MD LAB BLOOD ORDERABLES Final Resul t Performing Organization Address [facility] de Phone Number [facility] [place] [address] [facility] * ECG 12 lead (08/16/2024 10:01 PM OUTDOOR PURSUITS INSTRUCTOR) Pathologist [facility] Ventricular Rate EKG/Min 65 BPM [facility] Atrial Rate 65 BPM [facility] W[place]-Interval (MSEC) 140 ms [facility] QRS-Interval (MSEC) 72 ms [facility] QT-Interval (MSEC) 372 ms [facility] QTc 386 ms [facility] P [place] 73 degrees [facility] R [place] 68 degrees [facility] T [place] 68 degrees [facility] Diagnosis Normal sinus rhythm Normal ECG No previous ECGs available Confirmed by STEVE MONTEJO M.D ([id number]) on 08/19/2024 10:17:56 AM [facility] 08/16/2024 10:0 1 PM OUTDOOR PURSUITS INSTRUCTOR 08/19/2024 10:17 AM OUTDOOR PURSUITS INSTRUCTOR Kathryn Hoover MD ECG ORDERABLES Final Result Performing Organization Address [facility] Co de Phone Number [facility] * POCT glucose (08/16/2024 9:50 PM OUTDOOR PURSUITS INSTRUCTOR) Pathologist [facility] Glucose, POC 100 70 - 199 mg/dL Blood 08/16/2024 9:50 PM OUTDOOR PURSUITS INSTRUCTOR 08/16/2024 9:50 PM OUTDOOR PURSUITS INSTRUCTOR Kathryn Hoover MD LAB POCT ORDERABLES - DEVICE Fin al Result Performing Organization Address [facility] Co de Phone Number [facility] [place] [address] * eGFR (08/16/2024 9:47 PM OUTDOOR PURSUITS INSTRUCTOR) eGFR 87 >=60 mL/min/1. 73 m2 Comment: [...] last reviewed 2021. Blood 08/16/2024 9:47 PM OUTDOOR PURSUITS INSTRUCTOR 08/16/2024 10:33 PM OUTDOOR PURSUITS INSTRUCTOR Kathryn Hoover MD LAB BLOOD ORDERABLES Final Resul t Performing Organization Address City/[facility]/ZIP Co de Phone Number [facility] [place] [address] * aPTT (08/16/2024 9:47 PM OUTDOOR PURSUITS INSTRUCTOR) aPTT 34 28 - 38 sec Comment: Interpretive Data Heparin therapeutic range: 66.0 - 100.0 seconds. Range based on correlation with therapeutic heparin activity range of 0.3 - 0.7 Units/mL. Current interpretive data was last revised on 2023. Blood 08/16/2024 9:47 PM OUTDOOR PURSUITS INSTRUCTOR 08/16/2024 10:37 PM OUTDOOR PURSUITS INSTRUCTOR Kathryn Hoover MD LAB BLOOD ORDERABLES Final Resul t Performing Organization Address [facility] [place] [address] * Protime-INR (08/16/2024 9:47 PM OUTDOOR PURSUITS INSTRUCTOR) Pathologist [facility] PT 10.5 9.7 - 13.0 sec INR 0.97 0.90 - 1.20 [facility] Comment: Interpretive data Oral anticoagulant therapeutic ranges: Venous thromboembolism prophylaxis or treatment: 2.0-3.0 CARDIOLOGY Standard range: 2.0-3.0 High-intensity range: 2.5-3.5 Refer to indication-specific guidelines for appropriate target ranges for prosthetic heart valve replacement. Current interpretive data was last revised on 2019. Blood 08/16/2024 9:47 PM OUTDOOR PURSUITS INSTRUCTOR 08/16/2024 10:37 PM OUTDOOR PURSUITS INSTRUCTOR Kathryn Hoover MD LAB BLOOD ORDERABLES Final Resul t Performing Organization Address [facility] [place] [address] * CBC without differential (08/16/2024 9:47 PM OUTDOOR PURSUITS INSTRUCTOR) WBC 7.8 3.8 - 9.9 K/cumm Hgb 13.9 11.9 - 15.5 g/dL [facility] Hct 40.0 35.6 - 45.5 % [facility] Plt 229 150 - 400 K/cumm [facility] MPV 10.8 9.1 - 12.3 fL [facility] RBC 4.42 3.90 - 5.20 M/cumm [facility] MCV 90.5 81.3 - 96.4 fL [facility] MCH 31.4 27.1 - 33.3 pg [facility] MCHC 34.8 32.3 - 35.7 g/dL [facility] RDW CV 12.2 11.1 - 14.9 % [facility] RDW SD 40.4 35.7 - 48.1 fL [facility] NRBC abs 0.00 0.00 - 0.01 K/cumm [facility] Blood 08/16/2024 9:47 PM OUTDOOR PURSUITS INSTRUCTOR 08/16/2024 10:34 PM OUTDOOR PURSUITS INSTRUCTOR Kathrny Hoover MD LAB BLOOD ORDERABLES Final Resul t [facility] [place] [address] * CBC without differential (08/16/2024 9:47 PM OUTDOOR PURSUITS INSTRUCTOR) [facility] WBC 7.7 3.8 - 9.9 K/cumm Hgb 14.4 11.9 - 15.5 g/dL [facility] Hct 41.5 35.6 - 45.5 % [facility] Plt 223 150 - 400 K/cumm [facility] MPV 10.7 9.1 - 12.3 fL [facility] RBC 4.60 3.90 - 5.20 M/cumm [facility] MCV 90.2 81.3 - 96.4 fL [facility] MCH 31.3 27.1 - 33.3 pg [facility] MCHC 34.7 32.3 - 35.7 g/dL [facility] RDW CV 12.3 11.1 - 14.9 % [facility] RDW SD 40.5 35.7 - 48.1 fL [facility] NRBC abs 0.00 0.00 - 0.01 K/cumm [facility] Blood 08/16/2024 9:47 PM OUTDOOR PURSUITS INSTRUCTOR 08/16/2024 10:34 PM OUTDOOR PURSUITS INSTRUCTOR Kathryn Hoover MD LAB BLOOD ORDERABLES Final Resul t Performing Organization Address City/[facility] Co de Phone Number [facility] [place] [address] * Type and screen (08/16/2024 9:47 PM OUTDOOR PURSUITS INSTRUCTOR) ABO Rh O Positive Chante, indirect Negative [facility] Blood 08/16/2024 9:47 PM OUTDOOR PURSUITS INSTRUCTOR 08/16/2024 10:39 PM OUTDOOR PURSUITS INSTRUCTOR Narrative [facility] - 08/16/2024 11:40 PM OUTDOOR PURSUITS INSTRUCTOR Has the patient had Daratumumab or Isatuximab in the past 6 months?->Unknown Kathryn Hoover MD LAB BLOOD BANK TEST ORDERABLES F inal Result Performing Organization Address [facility] Co de Phone Number [facility] [place] [address] * Phosphorus (08/16/2024 9:47 PM OUTDOOR PURSUITS INSTRUCTOR) Phosphorus, pl 4.4 2.3 - 4.5 mg/dL Blood 08/16/2024 9:47 PM OUTDOOR PURSUITS INSTRUCTOR 08/16/2024 10:33 PM OUTDOOR PURSUITS INSTRUCTOR Kathryn Hoover MD LAB BLOOD ORDERABLES Final Resul t Performing Organization Address [facility] Co de Phone Number [facility] [place] [address] * Magnesium (08/16/2024 9:47 PM OUTDOOR PURSUITS INSTRUCTOR) Magnesium 2.3 1.4 - 2.5 mg/dL Blood 08/16/2024 9:47 PM OUTDOOR PURSUITS INSTRUCTOR 08/16/2024 10:33 PM OUTDOOR PURSUITS INSTRUCTOR Kathryn Hoover MD LAB BLOOD ORDERABLES Final Resul t Performing Organization Address City/[facility] Co de Phone Number [facility] [place] [address] * Comprehensive metabolic panel (08/16/2024 9:47 PM OUTDOOR PURSUITS INSTRUCTOR) Sodium 144 135 - 145 mmol/L Potassium, pl 3.7 3.3 - 4.9 mmol/L [facility] Chloride 106 97 - 110 mmol/L [facility] CO2 27 22 - 32 mmol/L [facility] Anion gap 11 2 - 15 mmol/L [facility] BUN 10 6 - 25 mg/dL [facility] Creatinine 0.79 0.60 - 1.10 mg/dL [facility] Glucose 92 70 - 199 mg/dL [facility] Comment: Interpretive Data Fasting glucose >/= [...] 2022. Calcium 9.8 8.5 - 10.3 mg/dL [facility] Bilirubin, total 0.7 0.1 - 1.2 mg/dL [facility] Protein, pl 7.4 6.5 - 8.5 g/dL [facility] Albumin 4.3 3.5 - 5.0 g/dL [facility] Alk phos 52 40 - 130 Units/L [facility] ALT 31 7 - 45 Units/L [facility] AST 26 10 - 45 Units/L [facility] Blood 08/16/2024 9:47 PM OUTDOOR PURSUITS INSTRUCTOR 08/16/2024 10:33 PM OUTDOOR PURSUITS INSTRUCTOR us Kathryn Hoover MD LAB BLOOD ORDERABLES Final Resul t [facility] Department [place] [address] * XR chest 1 view (Portable) (08/16/2024 9:33 PM OUTDOOR PURSUITS INSTRUCTOR) Anatomical Region Laterality Modality Body, Chest N/A Computed Radiogr aphy 08/17/2024 7:55 AM OUTDOOR PURSUITS INSTRUCTOR Impressions 08/17/2024 8:50 AM OUTDOOR PURSUITS INSTRUCTOR There are no prior chest radiographs for comparison. Lungs are clear. No pleural effusion. No pneumothorax. The heart size and mediastinal contours are within normal limits. Dictated by: Surendra Gipson M.D. The radiology attending physician has personally reviewed this study, and had reviewed and/or edited this written report and agrees with it. Electronically signed by: Leilani Still M.D. Narrative 08/17/2024 8:50 AM OUTDOOR PURSUITS INSTRUCTOR EXAMINATION: 1 view chest radiograph Procedure Note [...] Complete W WO Contrast (08/14/2024 8:50 PM OUTDOOR PURSUITS INSTRUCTOR) Anatomical Region Laterality Modality Spine N/A Magnetic Resonan ce 08/15/2024 8:32 AM OUTDOOR PURSUITS INSTRUCTOR Impressions 08/15/2024 9:11 AM OUTDOOR PURSUITS INSTRUCTOR 1. Findings consistent with intracranial hypotension. 2. Diffuse spinal pachymeningeal hypertrophy and enhancement. Suspected dorsal likely extra-dural collection beginning at approximately T2-T3 level extending inferiorly to the L4 level. This is best seen/most prominent at T6-T7 dorsally. Findings are suspicious for CSF leak. A dedicated CSF leak protocol MRI is available at [facility]. CT digital subtraction myelography could be performed at [facility] as an alternative. Either these studies may [...] Maycol Grove MD Narrative 08/15/2024 9:11 AM OUTDOOR PURSUITS INSTRUCTOR EXAMINATION: 1. Magnetic resonance imaging (MRI) of [...] CSF leak protocol MRI is available at [facility]. CT digital subtraction myelography could be performed at [facility] as an alternative. Either these studies may [...] by: Maycol Grove MD Perry Amaya DO IMG MRI PROCEDURES Final Result * MRI Brain W WO Contrast (08/14/2024 8:50 PM OUTDOOR PURSUITS INSTRUCTOR) Anatomical Region Laterality Modality Head and Neck N/A Magnetic Resonan ce 08/15/2024 8:32 AM OUTDOOR PURSUITS INSTRUCTOR Impressions 08/15/2024 9:11 AM OUTDOOR PURSUITS INSTRUCTOR 1. Findings consistent with intracranial hypotension. 2. Diffuse spinal pachymeningeal hypertrophy and enhancement. Suspected dorsal likely extra-dural collection beginning at approximately T2-T3 level extending inferiorly to the L4 level. This is best seen/most prominent at T6-T7 dorsally. Findings are suspicious for CSF leak. A dedicated CSF leak protocol MRI is available at [facility]. CT digital subtraction myelography could be performed at [facility] as an alternative. Either these studies may [...] Maycol Grove MD Narrative 08/15/2024 9:11 AM OUTDOOR PURSUITS INSTRUCTOR EXAMINATION: 1. Magnetic resonance imaging (MRI) of [...] CSF leak protocol MRI is available at [facility]. CT digital subtraction myelography could be performed at [facility] as an alternative. Either these studies may [...] by: Maycol Grove MD Perry Amaya DO [facility] MRI PROCEDURES Final Result * CT Head WO Contrast (08/14/2024 11:52 AM OUTDOOR PURSUITS INSTRUCTOR) Anatomical Region Laterality Modality Head and Neck N/A Computed Tomogra phy 08/14/2024 12:0 8 PM OUTDOOR PURSUITS INSTRUCTOR Impressions 08/14/2024 12:08 PM OUTDOOR PURSUITS INSTRUCTOR 1. Crowding of the suprasellar cistern with [...] Emmett Ballard M.D. Narrative 08/14/2024 12:08 PM OUTDOOR PURSUITS INSTRUCTOR EXAM:CT HEAD WO CONTRAST INDICATION: Headache, new [...] Final Result * eGFR (08/14/2024 11:14 AM OUTDOOR PURSUITS INSTRUCTOR) eGFR >90 >=60 mL/min/1. 73 m2 Comment: [...] of Race in Diagnosing Kidney Disease, JASN 202). The CKD-EPI equation should not be used for patients with unstable renal function and has not been validated in children and those over 70. Current interpretive data was last reviewed 2021. Blood 08/14/2024 11:1 4 AM OUTDOOR PURSUITS INSTRUCTOR 08/14/2024 11:40 AM OUTDOOR PURSUITS INSTRUCTOR Nisha Glover MD LAB BLOOD ORDERABLES Final Resu lt [facility] [address] [place] [employer] [place] [address] * Differential, auto (08/14/2024 11:14 AM OUTDOOR PURSUITS INSTRUCTOR) Neutrophil abs 5.4 1.5 - 6.5 K/cumm Imm gran abs 0.0 0.0 - 0.1 K/cumm [facility] Lymphocyte abs 1.3 0.8 - 3.3 K/cumm [facility] Monocyte abs 0.4 0.2 - 0.8 K/cumm [facility] Eosinophil abs 0.1 0.0 - 0.5 K/cumm [facility] Basophil abs 0.0 0.0 - 0.1 K/cumm [facility] Neutrophil pct 75.0 % [facility] Comment: Interpretive Data Percent cell count reference ranges are not reported, since discordance with absolute values may lead to misinterpretation of CBC data. Current Interpretive Data was last revised on 2017. Imm gran pct 0.4 % [facility] Comment: Interpretive Data Percent cell count reference ranges are not reported, since discordance with absolute values may lead to misinterpretation of CBC data. Current Interpretive Data was last revised on 2017. Lymphocyte pct 17.9 % [facility] Comment: Interpretive Data Percent cell count reference ranges are not reported, since discordance with absolute values may lead to misinterpretation of CBC data. Current Interpretive Data was last revised on 2017. Monocyte pct 5.5 % [facility] Comment: Interpretive Data Percent cell count reference ranges are not reported, since discordance with absolute values may lead to misinterpretation of CBC data. Current Interpretive Data was last revised on 2017. Eosinophil pct 0.8 % [facility] Comment: Interpretive Data Percent cell count reference ranges are not reported, since discordance with absolute values may lead to misinterpretation of CBC data. Current Interpretive Data was last revised on 2017. Basophil pct 0.4 % [facility] Comment: Interpretive Data Percent cell count reference ranges are not reported, since discordance with absolute values may lead to misinterpretation of CBC data. Current Interpretive Data was last revised on 2017. Blood 08/14/2024 11:1 4 AM OUTDOOR PURSUITS INSTRUCTOR 08/14/2024 11:40 AM OUTDOOR PURSUITS INSTRUCTOR Nisha Glover MD LAB BLOOD ORDERABLES Final Resu lt Performing Organization Address [facility] Co de Phone Number [facility] [address] [place] [employer] [place] [address] * CBC with auto differential (08/14/2024 11:14 AM OUTDOOR PURSUITS INSTRUCTOR) [facility] WBC 7.2 3.8 - 9.9 K/cumm Hgb 14.4 11.9 - 15.5 g/dL [facility] Hct 42.6 35.6 - 45.5 % [facility] Plt 229 150 - 400 K/cumm [facility] MPV 10.6 9.1 - 12.3 fL [facility] RBC 4.58 3.90 - 5.20 M/cumm [facility] MCV 93.0 81.3 - 96.4 fL [facility] MCH 31.4 27.1 - 33.3 pg [facility] MCHC 33.8 32.3 - 35.7 g/dL [facility] RDW CV 12.2 11.1 - 14.9 % [facility] RDW SD 42.1 35.7 - 48.1 fL [facility] NRBC abs 0.00 0.00 - 0.01 K/cumm [facility] Blood 08/14/2024 11:1 4 AM OUTDOOR PURSUITS INSTRUCTOR 08/14/2024 11:40 AM OUTDOOR PURSUITS INSTRUCTOR Nisha Glover MD LAB BLOOD ORDERABLES Final Resu lt Performing Organization Address [facility]/ZIP Co de Phone Number [facility] [address] [place] [place] [address] * Basic metabolic panel (08/14/2024 11:14 AM OUTDOOR PURSUITS INSTRUCTOR) Pathologist [facility] Sodium 143 135 - 145 mmol/L Potassium, pl 4.2 3.3 - 4.9 mmol/L [facility] Chloride 108 97 - 110 mmol/L [facility] CO2 24 22 - 32 mmol/L [facility] Anion gap 11 2 - 15 mmol/L [facility] BUN 11 6 - 25 mg/dL [facility] Creatinine 0.69 0.60 - 1.10 mg/dL [facility] Glucose 125 70 - 199 mg/dL [facility] Comment: Interpretive Data Fasting glucose >/= 126 [...] 2022. Calcium 9.3 8.5 - 10.3 mg/dL [facility] Blood 08/14/2024 11:1 4 AM OUTDOOR PURSUITS INSTRUCTOR 08/14/2024 11:40 AM OUTDOOR PURSUITS INSTRUCTOR us Nisha Glover MD LAB BLOOD ORDERABLES Final Resu lt [facility] [address] Department [place] [address] * Screening Mammogram Bilateral W Nigel W [...] her next mammogram. Electronically signed by: SUKHJINDER Morris 10/18/2023 8:03 AM CDT EXAMINATION: SCREENING MAMMOGRAM [...] Most Recently Relevant to Health Maintenance Insurance [facility] H[facility]/PPO Address: [place] [address] [facility] HMO/PPO Address[facility] [address] [place] [address] [facility] CHOICE PLUS [facility] HMO/PPO Address: [place] [address] Advance Directives For more information, please contact: [phone] * Full Code (Latest Code Status on File) Date Activated Date Inactivated Comments 08/16/2024 7:43 PM 08/19/2024 6:08 PM * Full Code Date Activated Date Inactivated Comments 08/14/2024 5:48 PM 08/16/2024 6:50 PM Care Teams Lawyers Relationship Specialty Start Date End Date Irma Valenzuela NP [address] [place] [address] PCP - General Nurse Practitioner 09/30/22
[2024-10-21 09:47] LABS: Influenza A QL RT-PCR Negative (Negative); Influenza B QL RT-PCR Negative (Negative); RSV RNA, RT-PCR Negative (Negative); SARS-CoV-2 RNA PCR Negative (Negative)
== END 2024-10-21 09:02 | disposition home or self-care (01) ==
LOC: CHSLAB 09:02
PROVIDERS: PCP Nurse Practitioner Family; Visit Provider Nurse Practitioner Family
DX: J06.9 Acute upper respiratory infection, unspecified (principal)
CPT/HCPCS: 87637

== ENCOUNTER 2024-10-29 13:38 | Outpatient (CLI) | payer OTHER, SELFPAY ==
--- NOTE | 2024-10-29 13:41 | ECHO_ITS ---
Patient Info Name: Aislinn Payne Age: 59 years : 1965 Gender: Female Ht: 65 in Wt: 143 lbs BSA: 1.73 m2 HR: 66 bpm BP: 105 / 68 mmHg Heart Rhythm: Sinus Rhythm Technical Quality: Fair Exam Date: 10/29/2024 2:18 PM Exam Location: Echo Lab Patient Status: Outpatient Admit Date: 10/29/2024 Staff Ordering Physician: Irma Valenzuela NP Home Improvement Installer: Ashtyn Zambrano RDCS Attending Provider: Irma Valenzuela NP Referring Physician: Nicolas DALTON; Exam Type: CA echo doppler color flow Study Info Indications - SOB Complete two-dimensional, color flow and Doppler transthoracic echocardiogram is performed. History/Risk Factors Hypertension: No Dyslipidemia: No Congenital Heart Disease (CHD): No Peripheral Arterial Disease (PAD): No Myocardial Infarction (N[place]): No Chronic Lung Disease: No Obesity: No Renal Disease: No Coronary Artery Disease (CAD) No Congestive Heart Failure (CHF): No Cardiomyopathy/LV Systolic Dysfunction: No Diabetes Mellitus: No COPD: No Tobacco Use: Never Cerebrovascular Disease: No Family History: Diabetes Mellitus Deep Vein Thrombosis (DVT): None Dialysis: None Frailty Scale (CSHA): 1: Very Fit Cardiac Arrest: No Prior Interventions Pacemaker: No PCI: No CABG: No Valve Surgery: No ICD: No PV Intervention: None Heart Transplant: No Summary 1. Complete two-dimensional, color flow and Doppler transthoracic echocardiogram is performed. 2. Left ventricular chamber dimension is normal. 3. Left ventricular systolic function is normal, estimated at 60-65%. 4. The left ventricular diastolic function is normal. 5. E/e' 9 is minimally elevated. 6. There is mild tricuspid valve regurgitation. 7. No pulmonary hypertension, estimated pulmonary arterial systolic pressure is 32 mmHg. 8. Dilated inferior vena cava with >50% collapse upon inspiration consistent with elevated right atrial pressure, 10 mmHg. 9. There is trivial pericardial effusion. Left Ventricle E/e' 9 is minimally elevated. Left ventricular chamber dimension is normal. Left ventricular systolic function is normal, estimated at 60-65%. The left ventricular diastolic function is normal. Right Ventricle Right ventricular systolic function is normal and with normal TAPSE 1.8 cm. Right ventricular chamber dimension is normal. Left Atria Left atrial chamber dimension is normal. Right Atria Right atrial chamber dimension is normal. Aortic Valve The aortic valve is trileaflet. There is no aortic valve stenosis. There is no aortic valve regurgitation. Pulmonic Valve There is no pulmonic regurgitation. Mitral Valve There is no mitral valve stenosis. There is no mitral valve regurgitation. Tricuspid Valve There is mild tricuspid valve regurgitation. No pulmonary hypertension, estimated pulmonary arterial systolic pressure is 32 mmHg. Pericardium/Pleural There is trivial pericardial effusion. Inferior Vena Cava Dilated inferior vena cava with >50% collapse upon inspiration consistent with elevated right atrial pressure, 10 mmHg. Aorta The aortic root size at the sinus of Valsalva is normal. Left Ventricular Outflow Tract Name Value Normal LVOT 2D LVOT Diameter 2.0 cm LVOT Doppler LVOT Peak Velocity 109 cm/s LVOT Peak Gradient 5 mmHg LVOT Mean Gradient 2 mmHg LVOT VTI 23 cm LVOT VTI/AV VTI Ratio 1.0 LVOT Stroke Volume 71 ml LVOT CO 4.7 l/min LVOT CI 2.7 l/min/m2 Pulmonic Valve Name Value Normal RVOT Doppler RVOT Peak Gradient 3 mmHg PV Doppler PV Peak Velocity 92 cm/s PV Peak Gradient 3 mmHg Mitral Valve Name Value Normal MV Doppler MV Decel [facility] 280 cm/s2 MV PHT 78 ms MV Area (PHT) 2.8 cm2 4.0-5.0 MV Diastolic Function MV E Peak Velocity 75 cm/s MV A Peak Velocity 60 cm/s MV E/A 1.3 MV Decel Time 270 ms MV Annular TDI MV Septal e' Velocity 9.6 cm/s >=8.0 MV E/e' (Septal) 7.9 <=8.0 MV Lateral e' Velocity 7.7 cm/s >=10.0 MV E/e' (Lateral) 9.8 <=8.0 MV e' Average 8.63 MV E/e' (Average) 8.8 Tricuspid Valve Name Value Normal TV Regurgitation Doppler TR Peak Velocity 235 cm/s TR Peak Gradient 16 mmHg Estimated PAP/RSVP RA Pressure 10 mmHg <=5 PA Systolic Pressure 32 mmHg <36 RV Systolic Pressure 32 mmHg <36 TV Annular TDI TV Lateral Stephanie s' Velocity 10.2 cm/s 9.5-18.7 Aortic Valve Name Value Normal AV Doppler AV Peak Velocity 112 cm/s AV Peak Gradient 5 mmHg AV Mean Gradient 3 mmHg AV VTI 22 cm AV Area (Cont Eq VTI) 3.2 cm2 >=3.0 AV Area (Cont Eq Timo) 3.0 cm2 AV V1/V2 Ratio 0.98 AV Regurgitation 2D LVOT Area 3.1 cm2 Ventricles Name Value Normal LV Dimensions 2D/MM IVS Diastolic Thickness (2D) 0.9 cm 0.6-1.0 LVID Diastole (2D) 4.1 cm 3.8-5.2 LVIW Diastolic Thickness (2D) 0.9 cm 0.6-0.9 LVID Systole (2D) 2.6 cm 2.2-3.5 LVOT Diameter 2.0 cm LV Mass (2D Cubed) 112.46 g 67.00-162.00 LV Mass Index (2D Cubed) 65 g/m2 43-95 Relative Wall Thickness (2D) 0.44 LV Fractional Shortening/Ejection Fraction 2D/MM LV Fractional Shortening (2D) 36 % 27-45 LV EF (2D Teicholz) 66 % 54-74 LV Diastolic Volume (4C MOD) 68 ml LV EF (4C MOD) 64 % LV Diastolic Volume (2C MOD) 75 ml LV EF (2C MOD) 62 % LV Diastolic Volume (BP MOD) 72 ml 46-106 LV Diastolic Volume Index (BP MOD) 41 ml/m2 29-61 LV Systolic Volume (BP MOD) 27 ml 14-42 LV Systolic Volume Index (BP MOD) 16 ml/m2 8-24 LV EF (BP MOD) 63 % 54-74 LV Diastolic Length (4C) 7.5 cm LV Systolic Length (4C) 6.1 cm LV Stroke Volume (4C MOD) 44 ml Atria Name Value Normal LA Dimensions LA Volume (4C A-L) 27 ml LA Volume (BP A-L) 38 ml RA Dimensions RA Area (4C) 12.8 cm2 <=18.0 Report Signatures
--- OUTSIDE RECORDS SUMMARY | 2024-10-29 13:42 | XMS_ITS | Encounter Summary ---
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
--- OUTSIDE RECORDS SUMMARY | 2024-10-29 13:42 | XMS_ITS | Referral Summary ---
Author Organization [facility] Medical [facility] Building B Address [address] [place] [address] Care Team Providers Care Educator Senior Clinical Name Role Phone Irma Valenzuela NP Primary Care Provider [phone] Encounters Date Type Department Care Team Description 10/18/2024 Results Follow-Up [place] [facility] [address], [place] [phone] Joe Montague MD 10/16/2024 2:30 PM CDT Procedure visit [facility] at [address], [place] [address] Stephanie Portillo Au.D. Sensorineural hearing loss (SNHL) of left ear with unrestricted hearing of right ear (Primary Dx); Disorder of Eustachian tube, unspecified laterality 10/16/2024 2:15 PM CDT Office Visit [facility] - [address], [place] [phone] Aundrea Aviles DO Disorder of Eustachian tube, unspecified laterality 10/07/[address] [facility] at [address], [place] [phone] Jesus Harris DO 10/07/2024 9:30 AM CDT Office Visit [place] [facility] [address], [place] [phone] Joe Montague MD Well woman exam (Primary Dx); Encounter for screening mammogram for malignant neoplasm of breast; Screening for malignant neoplasm of colon; Screening for colon cancer 10/03/2024 Telephone [facility] 6th [place] [address] [place] [address] Landon Carrillo MD 10/03/2024 3:15 PM CDT Office Visit [facility] [address] [place] [address] 6th [place] [address] [place] [address] Landon Carrillo MD 09/14/2024 Telephone [facility] [address] [place] [address] [place] [address] [place] [address] Landon Carrillo MD 09/13/2024 2:30 PM CDT Office Visit [facility] [address] [facility] Floor 1, [address] [place] [phone] Kathryn Hoover MD CSF leak (Primary Dx) 08/19/2024 Telephone [facility] Floor 1, [address] [place] [phone] Maria Isabel Cross RN 08/16/2024 6:50 PM PROGRAM OR PROJECT ADMINISTRATOR - 08/19/2024 2:03 PM PROGRAM OR PROJECT ADMINISTRATOR Hospital Encounter [facility] [address] [place] [address] Kathryn Hoover MD CSF leak [G96.00] (Primary Dx) Discharge Disposition: Discharge to home or self care 08/14/2024 10:53 AM PROGRAM OR PROJECT ADMINISTRATOR - 08/16/2024 6:15 PM PROGRAM OR PROJECT ADMINISTRATOR Hospital Encounter [facility] [address] [place] [phone] Nisha Glover MD Madej, Adam Benjamin, DO Other complicated headache syndrome (Primary Dx); CSF leak Discharge Disposition: Discharge to other type of institution with plan redmit from Last 3 Months Allergies Active Allergy Reactions Criticality Noted Date Comments Sulfamethoxazole-Trimethoprim Rash Medium 2022 Sulfamethoxazole Rash Medium 02/28/2024 Medications levonorgestreL (Kyleena) IUD 1 each by intrauterine route once Paid per insurance. Lot # [id number], Exp date: . Insertion date: 12-05-22. Active [...] directed 025 Discontin ued(Thera py completed ) acetaminophen (TYLENOL) 500 mg tablet DO NOT TAKE WHILE TAKING ESGIC, DO NOT TAKE MORE THAN 4,000 MG OF TYLENOL PER DAY 5 025 Discontin ued(Thera py completed ) Active Problems Problem Noted Date Diagnosed Date Disorder of eustachian tube 10/16/2024 Assessment & Plan (10/16/2024 4:41 PM CDT): Hearing test today - normal hearing CSF leak 08/15/2024 Headache 08/14/2024 Screening for malignant neoplasm of colon 2018 Overview (07/08/2019): Added automatically from request for surgery [id number] No pathologic diagnosis 11/09/2013 Overview (09/28/2016): No diagnosis Resolved Problems Problem Noted Date Diagnosed Date Resolved Date Screening for malignant neoplasm of colon 06/04/2019 06/05/2019 Overview (06/04/2019): Added automatically from request for surgery [id number] Immunizations Immunization Administration Dates Next Due Influenza, [...] on file Legal Sex Female 2:15 AM PROGRAM OR PROJECT ADMINISTRATOR Gender Identity Not on file Sexual Orientation [...] on file Medical Devices Implanted Type Area Collet Gluer Device Identifier Shelf Expiration Date Model / Serial / Lot Breast Breast Bilateral: Breast Procedures Procedure Name Priority Date/Time Associated Diagnosis Comments AUDIOGRAM Routine 10/16/2024 2:30 PM CDT Sensorineural hearing loss (SNHL) of left ear with unrestricted hearing of right ear PAP ONLY Routine 10/07/2024 10:30 AM CDT Well woman exam PAIN MGMT IMAGING EPIDURAL BLOOD PATCH Routine 08/19/2024 10:51 AM PROGRAM OR PROJECT ADMINISTRATOR EGFR Routine 08/18/2024 7:45 PM PROGRAM OR PROJECT ADMINISTRATOR BASIC METABOLIC PANEL Routine 08/18/2024 7:45 PM PROGRAM OR PROJECT ADMINISTRATOR CBC WITHOUT DIFFERENTIAL Routine 08/18/2024 7:45 PM PROGRAM OR PROJECT ADMINISTRATOR MR TOTAL SPINE CSF LEAK WO IP Routine 08/18/2024 8:47 AM PROGRAM OR PROJECT ADMINISTRATOR EGFR Routine 08/17/2024 9:47 PM PROGRAM OR PROJECT ADMINISTRATOR BASIC METABOLIC PANEL Routine 08/17/2024 9:47 PM PROGRAM OR PROJECT ADMINISTRATOR CBC WITHOUT DIFFERENTIAL Routine 08/17/2024 9:47 PM PROGRAM OR PROJECT ADMINISTRATOR URINALYSIS, MICROSCOPIC ONLY STAT 08/17/2024 7:56 AM PROGRAM OR PROJECT ADMINISTRATOR URINALYSIS AND REFLEX TO MICROSCOPIC AND CULTURE STAT 08/17/2024 7:56 AM PROGRAM OR PROJECT ADMINISTRATOR B CHECK SAMPLE STAT 08/16/2024 11:03 PM PROGRAM OR PROJECT ADMINISTRATOR ECG 12-LEAD STAT 08/16/2024 10:01 PM PROGRAM OR PROJECT ADMINISTRATOR POCT GLUCOSE DEVICE Routine 08/16/2024 9 :50 PM PROGRAM OR PROJECT ADMINISTRATOR EGFR STAT 08/16/2024 9:47 PM PROGRAM OR PROJECT ADMINISTRATOR CBC WITHOUT DIFFERENTIAL Routine 08/16/2024 9:47 PM PROGRAM OR PROJECT ADMINISTRATOR PROTIME-INR STAT 08/16/2024 9:47 PM PROGRAM OR PROJECT ADMINISTRATOR APTT STAT 08/16/2024 9:47 PM PROGRAM OR PROJECT ADMINISTRATOR TYPE AND SCREEN STAT 08/16/2024 9:47 PM PROGRAM OR PROJECT ADMINISTRATOR CBC WITHOUT DIFFERENTIAL STAT 08/16/2024 9:47 PM PROGRAM OR PROJECT ADMINISTRATOR PHOSPHORUS STAT 08/16/2024 9:47 PM PROGRAM OR PROJECT ADMINISTRATOR MAGNESIUM STAT 08/16/2024 9:47 PM PROGRAM OR PROJECT ADMINISTRATOR COMPREHENSIVE METABOLIC PANEL STAT 08/16/2024 9:47 PM PROGRAM OR PROJECT ADMINISTRATOR XR CHEST 1 VIEW IP Routine 08/16/2024 9:33 PM PROGRAM OR PROJECT ADMINISTRATOR MRI SPINE TOTAL COMPLETE W WO CONTRAST ED 08/14/2024 8:50 PM PROGRAM OR PROJECT ADMINISTRATOR MRI BRAIN W WO CONTRAST ED 08/14/2024 8:50 PM PROGRAM OR PROJECT ADMINISTRATOR CT HEAD WO CONTRAST ED 08/14/2024 1 1:52 AM PROGRAM OR PROJECT ADMINISTRATOR EGFR STAT 08/14/2024 11:14 AM PROGRAM OR PROJECT ADMINISTRATOR DIFFERENTIAL AUTO STAT 08/14/2024 11: 14 AM PROGRAM OR PROJECT ADMINISTRATOR BASIC METABOLIC PANEL STAT 08/14/2024 11:14 AM PROGRAM OR PROJECT ADMINISTRATOR CBC WITH AUTO DIFFERENTIAL STAT 08/14/2024 11:14 AM PROGRAM OR PROJECT ADMINISTRATOR SCREENING MAMMOGRAM BILATERAL W NIGEL W IMPLANTS Schedule Routine, Read Routine (OP Routine) 10/18/2023 7:53 AM CDT Visit for screening mammogram from Last 3 Months or Most Recently Relevant to Health Maintenance Results * AUDIOGRAM (10/16/2024 2:30 PM CDT) Narrative Stephanie Portillo Au.D. - 10/16/2024 2:30 PM CDT Stephanie Portillo Au.D. 10/16/2024 2:56 PM Audiogram Performed by: Stephanie Portillo Au.D. Authorized by: Aundrea Aviles, Aundrea Aviles DO AUDIOLOGY SERVICES ORDERABLE S [...] by Comment [facility] - 01 Comment:Raysa Milian, Sketcher (ASC) . . [facility] - 01 Note: Comment [...] - 10/10/2024 10:11 AM CDT Performed at: [address] [place] [id number] Network Diagnostic Support Specialist: Yanet Durbin MD, Phone: [phone] Specimen Comment: [id number] Specimen Comment: No. of containers..01 ThinPrep Vial us Joe Montague MD LAB CYTOLOGY ORDERABLES Fi nal Result Performing Organization Address [facility] Co de Phone Number [facility] - 01 * Imaging Epidural Blood Patch ([id number]) (08/19/2024 10:51 AM PROGRAM OR PROJECT ADMINISTRATOR) Narrative [id number] - 08/19/2024 10:52 AM PROGRAM OR PROJECT ADMINISTRATOR The images from this study are not interpreted by Radiology. Please refer to the physician's procedure / OR operative note. us Wayne Best MD IMG PAIN MGMT PROCEDURES Final Result Performing Organization Address [facility]/ZIP Co de Phone Number [facility] * eGFR (08/18/2024 7:45 PM PROGRAM OR PROJECT ADMINISTRATOR) eGFR 83 >=60 mL/min/1. 73 m2 Comment: [...] last reviewed 2021. Blood 08/18/2024 7:45 PM PROGRAM OR PROJECT ADMINISTRATOR 08/18/2024 8:28 PM PROGRAM OR PROJECT ADMINISTRATOR us Kathryn Hoover MD LAB BLOOD ORDERABLES Final Resul t [facility] Department [place] [address] * CBC without differential (08/18/2024 7:45 PM PROGRAM OR PROJECT ADMINISTRATOR) WBC 6.3 3.8 - 9.9 K/cumm Hgb 13.5 11.9 - 15.5 g/dL [facility] Hct 38.4 35.6 - 45.5 % [facility] Plt 211 150 - 400 K/cumm [facility] MPV 10.8 9.1 - 12.3 fL [facility] RBC 4.27 3.90 - 5.20 M/cumm [facility] MCV 89.9 81.3 - 96.4 fL [facility] MCH 31.6 27.1 - 33.3 pg [facility] MCHC 35.2 32.3 - 35.7 g/dL [facility] RDW CV 12.2 11.1 - 14.9 % [facility] RDW SD 39.8 35.7 - 48.1 fL [facility] NRBC abs 0.00 0.00 - 0.01 K/cumm [facility] Blood 08/18/2024 7:45 PM PROGRAM OR PROJECT ADMINISTRATOR 08/18/2024 8:28 PM PROGRAM OR PROJECT ADMINISTRATOR Kathryn Hoover MD LAB BLOOD ORDERABLES Final Resul t [facility] Department [place] [address] * Basic metabolic panel (08/18/2024 7:45 PM PROGRAM OR PROJECT ADMINISTRATOR) Sodium 143 135 - 145 mmol/L Potassium, pl 3.6 3.3 - 4.9 mmol/L [facility] Chloride 107 97 - 110 mmol/L [facility] CO2 26 22 - 32 mmol/L [facility] Anion gap 10 2 - 15 mmol/L [facility] BUN 12 6 - 25 mg/dL [facility] Creatinine 0.82 0.60 - 1.10 mg/dL [facility] Glucose 82 70 - 199 mg/dL [facility] Comment: Interpretive Data Fasting glucose >/= 126 [...] 2022. Calcium 9.3 8.5 - 10.3 mg/dL [facility] Blood 08/18/2024 7:45 PM PROGRAM OR PROJECT ADMINISTRATOR 08/18/2024 8:28 PM PROGRAM OR PROJECT ADMINISTRATOR Kathryn Hoover MD LAB BLOOD ORDERABLES Final Resul t 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 Dictated by: Gabriel Tran D.O. The radiology attending physician has personally reviewed this study, and had reviewed and/or edited this written report and agrees with it. Electronically signed by: Woo Berry M.D, PHD Narrative 08/18/2024 12:08 PM PROGRAM OR PROJECT ADMINISTRATOR EXAMINATION: 1. Magnetic resonance imaging (MRI) of [...] Woo Berry M.D, PHD Kathryn Hoover MD [facility] MRI PROCEDURES Final Result * eGFR (08/17/2024 9:47 PM PROGRAM OR PROJECT ADMINISTRATOR) eGFR 84 >=60 mL/min/1. 73 m2 Comment: [...] last reviewed 2021. Blood 08/17/2024 9:47 PM PROGRAM OR PROJECT ADMINISTRATOR 08/17/2024 10:55 PM PROGRAM OR PROJECT ADMINISTRATOR Kathryn Hoover MD LAB BLOOD ORDERABLES Final Resul t Performing Organization Address City/[facility]/ZIP Co de Phone Number [facility] Department [place] [address] * CBC without differential (08/17/2024 9:47 PM PROGRAM OR PROJECT ADMINISTRATOR) WBC 6.2 3.8 - 9.9 K/cumm Hgb 12.7 11.9 - 15.5 g/dL [facility] Hct 36.4 35.6 - 45.5 % [facility] Plt 223 150 - 400 K/cumm [facility] MPV 11.2 9.1 - 12.3 fL [facility] RBC 4.10 3.90 - 5.20 M/cumm [facility] MCV 88.8 81.3 - 96.4 fL [facility] MCH 31.0 27.1 - 33.3 pg [facility] MCHC 34.9 32.3 - 35.7 g/dL [facility] RDW CV 12.2 11.1 - 14.9 % [facility] RDW SD 39.4 35.7 - 48.1 fL [facility] NRBC abs 0.00 0.00 - 0.01 K/cumm [facility] Blood 08/17/2024 9:47 PM PROGRAM OR PROJECT ADMINISTRATOR 08/17/2024 10:57 PM PROGRAM OR PROJECT ADMINISTRATOR Kathryn Hoovre MD LAB BLOOD ORDERABLES Final Resul t [facility] Department [place] [address] * Basic metabolic panel (08/17/2024 9:47 PM PROGRAM OR PROJECT ADMINISTRATOR) Sodium 143 135 - 145 mmol/L Potassium, pl 3.9 3.3 - 4.9 mmol/L [facility] Chloride 107 97 - 110 mmol/L [facility] CO2 25 22 - 32 mmol/L [facility] Anion gap 11 2 - 15 mmol/L [facility] BUN 12 6 - 25 mg/dL [facility] Creatinine 0.81 0.60 - 1.10 mg/dL [facility] Glucose 97 70 - 199 mg/dL [facility] Comment: Interpretive Data Fasting glucose >/= 126 [...] 2022. Calcium 9.1 8.5 - 10.3 mg/dL [facility] Blood 08/17/2024 9:47 PM PROGRAM OR PROJECT ADMINISTRATOR 08/17/2024 10:55 PM PROGRAM OR PROJECT ADMINISTRATOR Kathryn Hoover MD LAB BLOOD ORDERABLES Final Resul t [facility] Department [place] [address] * (ABNORMAL) Urinalysis reflex to microscopic and culture Urine, clean voided (08/17/2024 7:56 AM PROGRAM OR PROJECT ADMINISTRATOR) Color, ur Straw Yellow Clarity, ur Clear Clear [facility] Specific gravity, ur 1.018 1.003 - 1.030 [facility] pH, urine 5.5 [facility] Comment: Interpretive Data U rine pH is affected by diet, medications, systemic acid-base disturbances, and renal tubular function. pH may affect urinary stone formation. For example, urine pH below 6.0 may help reduce the tendency for calcium phosphate stones and pH greater than 6.0 may reduce the tendency for uric acid stone formation. Source: [facility] Current Interpretive Data was last revised on 2017 Protein, ur ql Trace Negative [facility] Glucose, ur ql Negative Negative [facility] Ketones, ur Negative Negative [facility] Bilirubin, ur Negative Negative [facility] Blood, ur Negative Negative [facility] Urobilinogen, ur <2.0 <2.0 mg/dL [facility] Nitrite, ur Negative Negative [facility] Leukocyte esterase, ur 2+(A) Negative [facility] UA reflex comment Reflex to microscopic UA will be performed. [facility] Urine, clean voided 08/17/2024 7:56 AM PROGRAM OR PROJECT ADMINISTRATOR 08/17/2024 8:35 AM PROGRAM OR PROJECT ADMINISTRATOR Kathryn Hoover MD LAB MICROBIOLOGY - GENERAL ORDER ADRIA Final Result Performing Organization Address [facility] de Phone Number [facility] [place] [employer] [place] [address] * (ABNORMAL) Urinalysis, microscopic only (08/17/2024 7:56 AM PROGRAM OR PROJECT ADMINISTRATOR) WBC, ur 6-10(A) 0 - 5 /HPF RBC, ur 0-2 0 - 2 /HPF [facility] Epithelial cells, squamous, ur 6-10(A) 0 - 5 /HPF [facility] Comment:Suggestive of contam ination. Consider recollection by clean catch. Bacteria, ur 1+(A) [facility] Mucous, ur Present(A) [facility] Culture Reflex Comment Reflex conditions for urine culture (WBC >10) not met. [facility] Urine, clean voided 08/17/2024 7:56 AM PROGRAM OR PROJECT ADMINISTRATOR 08/17/2024 8:35 AM PROGRAM OR PROJECT ADMINISTRATOR Kathryn Hoover MD LAB URINE ORDERABLES Final Resul t Performing Organization Address [facility] de Phone Number [facility] [place] [employer] [place] [address] * Check Sample (08/16/2024 11:03 PM PROGRAM OR PROJECT ADMINISTRATOR) ABO Rh O Positive [facility] OTHER 08/16/2024 11:0 3 PM PROGRAM OR PROJECT ADMINISTRATOR 08/17/2024 12:12 AM PROGRAM OR PROJECT ADMINISTRATOR Kathryn Hoover MD LAB BLOOD ORDERABLES Final Resul t Performing Organization Address [facility] Co de Phone Number [facility] Department [place] [address] [facility] * ECG 12 lead (08/16/2024 10:01 PM PROGRAM OR PROJECT ADMINISTRATOR) Ventricular Rate EKG/Min [address] [facility] Atrial Rate [address] [facility] DC-Interval (MSEC) [address] [facility] QRS-Interval (MSEC) [address] [facility] QT-Interval (MSEC) [address] [facility] QTc [address] [facility] P [place] [address] [facility] R [place] [address] [facility] T [place] [address] [facility] Diagnosis Normal sinus rhythm Normal ECG No previous ECGs available Confirmed by STEVE MONTEJO M.D ([id number]) on 08/19/2024 10:17:56 AM [facility] 08/16/2024 10:0 1 PM PROGRAM OR PROJECT ADMINISTRATOR 08/19/2024 10:17 AM PROGRAM OR PROJECT ADMINISTRATOR Kathryn Hoover MD ECG ORDERABLES Final Result Performing Organization Address [facility] de Phone Number [facility] * POCT glucose (08/16/2024 9:50 PM PROGRAM OR PROJECT ADMINISTRATOR) Glucose, POC 100 70 - 199 mg/dL Blood 08/16/2024 9:50 PM PROGRAM OR PROJECT ADMINISTRATOR 08/16/2024 9:50 PM PROGRAM OR PROJECT ADMINISTRATOR Kathryn Hoover MD LAB POCT ORDERABLES - DEVICE Fin al Result Performing Organization Address City/[facility]/ZIP Co de Phone Number [facility] Department [place] [address] * eGFR (08/16/2024 9:47 PM PROGRAM OR PROJECT ADMINISTRATOR) eGFR 87 >=60 mL/min/1. 73 m2 Comment: [...] last reviewed 2021. Blood 08/16/2024 9:47 PM PROGRAM OR PROJECT ADMINISTRATOR 08/16/2024 10:33 PM PROGRAM OR PROJECT ADMINISTRATOR Kathryn Hoover MD LAB BLOOD ORDERABLES Final Resul t [facility] Department [place] [address] * aPTT (08/16/2024 9:47 PM PROGRAM OR PROJECT ADMINISTRATOR) aPTT 34 28 - 38 sec Comment: Interpretive Data Heparin therapeutic range: 66.0 - 100.0 seconds. Range based on correlation with therapeutic heparin activity range of 0.3 - 0.7 Units/mL. Current interpretive data was last revised on 2023. Blood 08/16/2024 9:47 PM PROGRAM OR PROJECT ADMINISTRATOR 08/16/2024 10:37 PM PROGRAM OR PROJECT ADMINISTRATOR Kathryn Hoover MD LAB BLOOD ORDERABLES Final Resul t [facility] Department [place] [address] * Protime-INR (08/16/2024 9:47 PM PROGRAM OR PROJECT ADMINISTRATOR) [facility] PT 10.5 9.7 - 13.0 sec INR 0.97 0.90 - 1.20 [facility] Comment: Interpretive data Oral anticoagulant therapeutic ranges: Venous thromboembolism prophylaxis or treatment: 2.0-3.0 CARDIOLOGY Standard range: 2.0-3.0 High-intensity range: 2.5-3.5 Refer to indication-specific guidelines for appropriate target ranges for prosthetic heart valve replacement. Current interpretive data was last revised on 2019. Blood 08/16/2024 9:47 PM PROGRAM OR PROJECT ADMINISTRATOR 08/16/2024 10:37 PM PROGRAM OR PROJECT ADMINISTRATOR Kathryn Hoover MD LAB BLOOD ORDERABLES Final Resul t Performing Organization Address City/[facility] Co de Phone Number [facility] Department [place] [address] * CBC without differential (08/16/2024 9:47 PM PROGRAM OR PROJECT ADMINISTRATOR) [facility] WBC 7.8 3.8 - 9.9 K/cumm Hgb 13.9 11.9 - 15.5 g/dL [facility] Hct 40.0 35.6 - 45.5 % [facility] Plt 229 150 - 400 K/cumm [facility] MPV 10.8 9.1 - 12.3 fL [facility] RBC 4.42 3.90 - 5.20 M/cumm [facility] MCV 90.5 81.3 - 96.4 fL [facility] MCH 31.4 27.1 - 33.3 pg [facility] MCHC 34.8 32.3 - 35.7 g/dL [facility] RDW CV 12.2 11.1 - 14.9 % [facility] RDW SD 40.4 35.7 - 48.1 fL [facility] NRBC abs 0.00 0.00 - 0.01 K/cumm [facility] Blood 08/16/2024 9:47 PM PROGRAM OR PROJECT ADMINISTRATOR 08/16/2024 10:34 PM PROGRAM OR PROJECT ADMINISTRATOR Kathryn Hoover MD LAB BLOOD ORDERABLES Final Resul t Performing Organization Address [facility] Co de Phone Number [facility] [place] [address] * CBC without differential (08/16/2024 9:47 PM PROGRAM OR PROJECT ADMINISTRATOR) WBC 7.7 3.8 - 9.9 K/cumm Hgb 14.4 11.9 - 15.5 g/dL [facility] Hct 41.5 35.6 - 45.5 % [facility] Plt 223 150 - 400 K/cumm [facility] MPV 10.7 9.1 - 12.3 fL [facility] RBC 4.60 3.90 - 5.20 M/cumm [facility] MCV 90.2 81.3 - 96.4 fL [facility] MCH 31.3 27.1 - 33.3 pg [facility] MCHC 34.7 32.3 - 35.7 g/dL [facility] RDW CV 12.3 11.1 - 14.9 % [facility] RDW SD 40.5 35.7 - 48.1 fL [facility] NRBC abs 0.00 0.00 - 0.01 K/cumm [facility] Blood 08/16/2024 9:47 PM PROGRAM OR PROJECT ADMINISTRATOR 08/16/2024 10:34 PM PROGRAM OR PROJECT ADMINISTRATOR Kathryn Hoover MD LAB BLOOD ORDERABLES Final Resul t Performing Organization Address City/[facility]/ZIP Co de Phone Number [facility] [place] [address] * Type and screen (08/16/2024 9:47 PM PROGRAM OR PROJECT ADMINISTRATOR) ABO Rh O Positive [place], indirect Negative [facility] Blood 08/16/2024 9:47 PM PROGRAM OR PROJECT ADMINISTRATOR 08/16/2024 10:39 PM PROGRAM OR PROJECT ADMINISTRATOR Narrative [facility] - 08/16/2024 11:40 PM PROGRAM OR PROJECT ADMINISTRATOR Has the patient had Daratumumab or Isatuximab in the past 6 months?->Unknown Result [facility] Kathryn Hoover MD LAB BLOOD BANK TEST ORDERABLES F inal Result Performing Organization Address [facility] Co de Phone Number [facility] [place] [employer] [place] [address] * Phosphorus (08/16/2024 9:47 PM PROGRAM OR PROJECT ADMINISTRATOR) Pathologist [facility] Phosphorus, pl 4.4 2.3 - 4.5 mg/dL Blood 08/16/2024 9:47 PM PROGRAM OR PROJECT ADMINISTRATOR 08/16/2024 10:33 PM PROGRAM OR PROJECT ADMINISTRATOR Result [facility] Kathryn Hoover MD LAB BLOOD ORDERABLES Final Resul t Performing Organization Address [facility] Co de Phone Number [facility] [place] [employer] [place] [address] * Magnesium (08/16/2024 9:47 PM PROGRAM OR PROJECT ADMINISTRATOR) [facility] Magnesium 2.3 1.4 - 2.5 mg/dL Blood 08/16/2024 9:47 PM PROGRAM OR PROJECT ADMINISTRATOR 08/16/2024 10:33 PM PROGRAM OR PROJECT ADMINISTRATOR Result [facility] Kathryn Hoover MD LAB BLOOD ORDERABLES Final Resul t Performing Organization Address [facility] Co de Phone Number [facility] [employer] [place] [address] * Comprehensive metabolic panel (08/16/2024 9:47 PM PROGRAM OR PROJECT ADMINISTRATOR) Pathologist [facility] Sodium 144 135 - 145 mmol/L Potassium, pl 3.7 3.3 - 4.9 mmol/L [facility] Chloride 106 97 - 110 mmol/L [facility] CO2 27 22 - 32 mmol/L [facility] Anion gap 11 2 - 15 mmol/L [facility] BUN 10 6 - 25 mg/dL [facility] Creatinine 0.79 0.60 - 1.10 mg/dL [facility] Glucose 92 70 - 199 mg/dL [facility] Comment: Interpretive Data Fasting glucose >/= 126 [...] 2022. Calcium 9.8 8.5 - 10.3 mg/dL [facility] Bilirubin, total 0.7 0.1 - 1.2 mg/dL [facility] Protein, pl 7.4 6.5 - 8.5 g/dL [facility] Albumin 4.3 3.5 - 5.0 g/dL [facility] Alk phos 52 40 - 130 Units/L [facility] ALT 31 7 - 45 Units/L [facility] AST 26 10 - 45 Units/L [facility] Blood 08/16/2024 9:47 PM PROGRAM OR PROJECT ADMINISTRATOR 08/16/2024 10:33 PM PROGRAM OR PROJECT ADMINISTRATOR Kathryn Hoover MD LAB BLOOD ORDERABLES Final Resul t [facility] Department [place] [address] * XR chest 1 view (Portable) (08/16/2024 9:33 PM PROGRAM OR PROJECT ADMINISTRATOR) Anatomical Region Laterality Modality Body, Chest N/A Computed Radiogr aphy 08/17/2024 7:55 AM PROGRAM OR PROJECT ADMINISTRATOR Impressions 08/17/2024 8:50 AM PROGRAM OR PROJECT ADMINISTRATOR There are no prior chest radiographs for comparison. Lungs are clear. No pleural effusion. No pneumothorax. The heart size and mediastinal contours are within normal limits. Dictated by: Surendra Gipson M.D. The radiology attending physician has personally reviewed this study, and had reviewed and/or edited this written report and agrees with it. Electronically signed by: Leilani Still M.D. Narrative 08/17/2024 8:50 AM PROGRAM OR PROJECT ADMINISTRATOR EXAMINATION: 1 view chest radiograph Procedure Note [...] Complete W WO Contrast (08/14/2024 8:50 PM PROGRAM OR PROJECT ADMINISTRATOR) Anatomical Region Laterality Modality Spine N/A Magnetic Resonan ce 08/15/2024 8:32 AM PROGRAM OR PROJECT ADMINISTRATOR Impressions 08/15/2024 9:11 AM PROGRAM OR PROJECT ADMINISTRATOR 1. Findings consistent with intracranial hypotension. 2. Diffuse spinal pachymeningeal hypertrophy and enhancement. Suspected dorsal likely extra-dural collection beginning at approximately T2-T3 level extending inferiorly to the L4 level. This is best seen/most prominent at T6-T7 dorsally. Findings are suspicious for CSF leak. A dedicated CSF leak protocol MRI is available at [facility]. CT digital subtraction myelography could be performed at [facility] as an alternative. Either these studies may [...] Maycol Grove MD Narrative 08/15/2024 9:11 AM PROGRAM OR PROJECT ADMINISTRATOR EXAMINATION: 1. Magnetic resonance imaging (MRI) of [...] CSF leak protocol MRI is available at [facility]. CT digital subtraction myelography could be performed at [facility] as an alternative. Either these studies may be useful for localizing no CSF leak (assuming ineffective blood patch). 3. Cholelithiasis with markedly distended gallbladder. Recommend clinical correlation and fasting ultrasound for further evaluation. Dictated by: Mulu Cabral, DO The radiology attending physician has personally reviewed this study, and had reviewed and/or edited this written report and agrees with it. Electronically signed by: Maycol Grove MD us Perry Hugo Jose Luis MCNEAL [facility] MRI PROCEDURES Final Result * MRI Brain W WO Contrast (08/14/2024 8:50 PM PROGRAM OR PROJECT ADMINISTRATOR) Anatomical Region Laterality Modality Head and Neck N/A Magnetic Resonan ce 08/15/2024 8:32 AM PROGRAM OR PROJECT ADMINISTRATOR Impressions 08/15/2024 9:11 AM PROGRAM OR PROJECT ADMINISTRATOR 1. Findings consistent with intracranial hypotension. 2. Diffuse spinal pachymeningeal hypertrophy and enhancement. Suspected dorsal likely extra-dural collection beginning at approximately T2-T3 level extending inferiorly to the L4 level. This is best seen/most prominent at T6-T7 dorsally. Findings are suspicious for CSF leak. A dedicated CSF leak protocol MRI is available at [facility]. CT digital subtraction myelography could be performed at [facility] as an alternative. Either these studies may [...] Maycol Grove MD Narrative 08/15/2024 9:11 AM PROGRAM OR PROJECT ADMINISTRATOR EXAMINATION: 1. Magnetic resonance imaging (MRI) of [...] CSF leak protocol MRI is available at [facility]. CT digital subtraction myelography could be performed at [facility] as an alternative. Either these studies may [...] DO IMG MRI PROCEDURES Final Result * CT Head WO Contrast (08/14/2024 11:52 AM PROGRAM OR PROJECT ADMINISTRATOR) Anatomical Region Laterality Modality Head and Neck N/A Computed Tomogra phy 08/14/2024 12:0 8 PM PROGRAM OR PROJECT ADMINISTRATOR Impressions 08/14/2024 12:08 PM PROGRAM OR PROJECT ADMINISTRATOR 1. Crowding of the suprasellar cistern with [...] Emmett Ballard M.D. Narrative 08/14/2024 12:08 PM PROGRAM OR PROJECT ADMINISTRATOR EXAM:CT HEAD WO CONTRAST INDICATION: Headache, new [...] Final Result * eGFR (08/14/2024 11:14 AM PROGRAM OR PROJECT ADMINISTRATOR) eGFR >90 >=60 mL/min/1. 73 m2 Comment: [...] reviewed 2021. Blood 08/14/2024 11:1 4 AM PROGRAM OR PROJECT ADMINISTRATOR 08/14/2024 11:40 AM PROGRAM OR PROJECT ADMINISTRATOR Nisha Glover MD LAB BLOOD ORDERABLES Final Resu lt [facility] [address] Department [place] [address] * Differential, auto (08/14/2024 11:14 AM PROGRAM OR PROJECT ADMINISTRATOR) Neutrophil abs 5.4 1.5 - 6.5 K/cumm Imm gran abs 0.0 0.0 - 0.1 K/cumm [facility] Lymphocyte abs 1.3 0.8 - 3.3 K/cumm [facility] Monocyte abs 0.4 0.2 - 0.8 K/cumm [facility] Eosinophil abs 0.1 0.0 - 0.5 K/cumm [facility] Basophil abs 0.0 0.0 - 0.1 K/cumm [facility] Neutrophil pct 75.0 % [facility] Comment: Interpretive Data Percent cell count reference ranges are not reported, since discordance with absolute values may lead to misinterpretation of CBC data. Current Interpretive Data was last revised on 2017. Imm gran pct 0.4 % [facility] Comment: Interpretive Data Percent cell count reference ranges are not reported, since discordance with absolute values may lead to misinterpretation of CBC data. Current Interpretive Data was last revised on 2017. Lymphocyte pct 17.9 % [facility] Comment: Interpretive Data Percent cell count reference ranges are not reported, since discordance with absolute values may lead to misinterpretation of CBC data. Current Interpretive Data was last revised on 2017. Monocyte pct 5.5 % [facility] Comment: Interpretive Data Percent cell count reference ranges are not reported, since discordance with absolute values may lead to misinterpretation of CBC data. Current Interpretive Data was last revised on 2017. Eosinophil pct 0.8 % [facility] Comment: Interpretive Data Percent cell count reference ranges are not reported, since discordance with absolute values may lead to misinterpretation of CBC data. Current Interpretive Data was last revised on 2017. Basophil pct 0.4 % [facility] Comment: Interpretive Data Percent cell count reference ranges are not reported, since discordance with absolute values may lead to misinterpretation of CBC data. Current Interpretive Data was last revised on 2017. Blood 08/14/2024 11:1 4 AM PROGRAM OR PROJECT ADMINISTRATOR 08/14/2024 11:40 AM PROGRAM OR PROJECT ADMINISTRATOR us Nisha Glover MD LAB BLOOD ORDERABLES Final Resu lt [facility] [address] Department [place] [address] * CBC with auto differential (08/14/2024 11:14 AM PROGRAM OR PROJECT ADMINISTRATOR) WBC 7.2 3.8 - 9.9 K/cumm Hgb 14.4 11.9 - 15.5 g/dL [facility] Hct 42.6 35.6 - 45.5 % [facility] Plt 229 150 - 400 K/cumm [facility] MPV 10.6 9.1 - 12.3 fL [facility] RBC 4.58 3.90 - 5.20 M/cumm [facility] MCV 93.0 81.3 - 96.4 fL [facility] MCH 31.4 27.1 - 33.3 pg [facility] MCHC 33.8 32.3 - 35.7 g/dL [facility] RDW CV 12.2 11.1 - 14.9 % [facility] RDW SD 42.1 35.7 - 48.1 fL [facility] NRBC abs 0.00 0.00 - 0.01 K/cumm [facility] Blood 08/14/2024 11:1 4 AM PROGRAM OR PROJECT ADMINISTRATOR 08/14/2024 11:40 AM PROGRAM OR PROJECT ADMINISTRATOR us Nisha Glover MD LAB BLOOD ORDERABLES Final Resu lt [facility] [address] Department [place] [address] * Basic metabolic panel (08/14/2024 11:14 AM PROGRAM OR PROJECT ADMINISTRATOR) [facility] Sodium 143 135 - 145 mmol/L Potassium, pl 4.2 3.3 - 4.9 mmol/L [facility] Chloride 108 97 - 110 mmol/L [facility] CO2 24 22 - 32 mmol/L [facility] Anion gap 11 2 - 15 mmol/L [facility] BUN 11 6 - 25 mg/dL [facility] Creatinine 0.69 0.60 - 1.10 mg/dL [facility] Glucose 125 70 - 199 mg/dL [facility] Comment: Interpretive Data Fasting glucose >/= [...] Calcium 9.3 8.5 - 10.3 mg/dL [facility] Blood 08/14/2024 11:1 4 AM PROGRAM OR PROJECT ADMINISTRATOR 08/14/2024 11:40 AM PROGRAM OR PROJECT ADMINISTRATOR us Nisha Glover MD LAB BLOOD ORDERABLES Final Resu lt [facility] [address] Department [place] [address] * Screening Mammogram Bilateral W Nigel W [...] suspicious finding in either breast on mammogram. us Joe Montague MD IMG MAMMO PROCEDURES Final Result from Last 3 Months or Most Recently Relevant to Health Maintenance Insurance [facility] PL[facility] Advance Directives For more information, please contact: [phone] * Full Code (Latest Code Status on File) Date Activated Date Inactivated Comments 08/16/2024 7:43 PM 08/19/2024 6:08 PM * Full Code Date Activated Date Inactivated Comments 08/14/2024 5:48 PM 08/16/2024 6:50 PM Care Teams Educator Senior Clinical Relationship Specialty Start Date End Date Irma Valenzuela NP [address] [place] [address] PCP - General Nurse Practitioner 09/30/22
--- OUTSIDE RECORDS SUMMARY | 2024-10-29 13:42 | XMS_ITS | Clinical Summary ---
Author Organization [facility] [address] Address [address] [place] [address] Care Team Providers Care Highballer Name Role Phone Noel Barnes APRN, DISTRIBUTION COLLECTION OPERATOR Primary Care Provider + Arron Oswald MD Unavailable [phone] Allergies Active Allergy Reactions Criticality Noted Date Comments Sulfamethoxazole Rash 02/28/2024 Medications fluticasone (FLONASE) 50 MCG/ACT Suspension 1 [place] by Nasal route daily. Use in each [...] patient's age to complete this topic [place] [address] [place] [address] Care Teams Highballer Relationship Specialty Start Date End Date Noel Barnes, SOLAR PROCESS ENGINEER, DISTRIBUTION COLLECTION OPERATOR [address] [place] [address] PCP - General Advanced Practice Nurse 02/28/24 Arron Oswald MD [address] [place] [address] Consulting Physician Neurology 03/11/24
--- OUTSIDE RECORDS SUMMARY | 2024-10-29 13:42 | XMS_ITS | Clinical Summary ---
Author Organization [facility] Address [address] [place] [address] Care Team Providers Care Assistant Curator Name Role Phone Irma Valenzuela Angel HAND MOLDER-RAND BUTTING MACHINE OPERATOR Primary Care Provid er Source Comments [facility],non-owned Affiliates and Associated Physician Practices is amultiple site organization consisting of ambulatory clinics and hospital sitesin [place], [place], [place] and [place]. This disclosure is being madepursuant to the Care Everywhere program and may not contain all information available regarding this patient. Last updated 18.[facility] Allergies Active Allergy Reactions Criticality Noted Date [...] file Legal Sex Female 6:26 AM DIRECTOR CASE Gender Identity Not on file Sexual Orientation Not on file Last Filed Vital Signs Vital Sign Reading Time Taken Comments Blood Pressure 110/57 05/10/2024 1:06 PM DIRECTOR CASE Pulse 66 05/10/2024 1:06 PM DIRECTOR CASE Temperature 36.6 C (97.8 F) 05/10/2024 1:06 PM DIRECTOR CASE Respiratory Rate - - Oxygen Saturation 98% 05/10/2024 1:06 PM DIRECTOR CASE Inhaled Oxygen Concentration - - Weight 60.3 kg (133 lb) 05/10/2024 1:06 PM DIRECTOR CASE Height 165.1 cm (5' 5 ) 05/10/2024 1:06 PM DIRECTOR CASE Body Mass Index 22.13 05/10/2024 1:06 PM DIRECTOR CASE Plan of Treatment Health Maintenance Due Date [...] to your last dose Insurance Care Teams Assistant Curator Relationship Specialty Start Date End Date Irma Valenzuela, HAND MOLDER-RAND BUTTING MACHINE OPERATOR [address] [place] [address] PCP - General Nurse Practitioner Family 05/17/24
--- OUTSIDE RECORDS SUMMARY | 2024-10-29 13:42 | XMS_ITS | Encounter Summary ---
Author Organization [facility] Address [address] [place] [address] Phone Care Team Providers Care Certified Executive Chef Name Role Phone Noel Barnes APRN, SPORTS UMPIRE Primary Care Provider + Arron Oswald MD Unavailable [phone] Reason for Visit * Reason Onset Date Comments Results 03/29/2024 Encounter Details Date Type Department Care Team (Late st Contact Info) Description 03/29/2024 Telephone [facility] [address] [place] [address] Noel Barnes, ALPHONSO, SPORTS UMPIRE [address] [place] [address] Results Social History Tobacco Use [...] AM CDT SITUATION: Results BACKGROUND: Caller contacting [facility] , forwarded to provider for the patient Patient states she received her MRI results over the phone but cannot find the report on her [employer] appt. Patient would like to read the repeat and is requesting it be sent through her [employer] or mailed to her (address confirmed). Status is not released for patient to see. documented in this encounter Plan of Treatment Not on file documented as of this encounter Visit Diagnoses Not on filedocumented in this encounter Care Teams Certified Executive Chef Relationship Specialty Start Date End Date Noel Barnes APRN, SPORTS UMPIRE [address] [place] [address] PCP - General Advanced Practice Nurse 02/28/24 Arron Oswald MD [address] [place] [address] Consulting Physician Neurology 03/11/24 documented as of this encounter
--- OUTSIDE RECORDS SUMMARY | 2024-10-29 13:42 | XMS_ITS | Clinical Summary ---
Author Organization [facility] B Address [address] [place] [address] Care Team Providers Care Supervisor Drying And Winding Name Role Phone Irma Valenzuela NP Primary Care Provider [phone] Allergies Active Allergy Reactions Criticality Noted Date Comments Sulfamethoxazole-Trimethoprim Rash Medium 2022 Sulfamethoxazole Rash Medium 02/28/2024 Medications levonorgestreL (Kyleena) IUD 1 each by intrauterine route once Paid per insurance. Lot # [id number], Exp date: . Insertion date: 12-05-22. Active [...] (07/08/2019): Added automatically from request for surgery [id number] No pathologic diagnosis 11/09/2013 Overview (09/28/2016): No diagnosis Resolved Problems Problem Noted Date Diagnosed Date Resolved Date Screening for malignant neoplasm of colon 06/04/2019 06/05/2019 Overview (06/04/2019): Added automatically from request for surgery [id number] Encounters Date Type Department Care Team Description 10/18/2024 Results Follow-Up [facility] [address] [place] [address] Joe Montague MD 10/16/2024 2:30 PM CDT Procedure visit [facility] at [address] [place] [address] Stephanie Portillo Au.D. Sensorineural hearing loss (SNHL) of left ear with unrestricted hearing of right ear (Primary Dx); Disorder of Eustachian tube, unspecified laterality 10/16/2024 2:15 PM CDT Office Visit [facility] - [address] [place] [address] Aundrea Aviles DO Disorder of Eustachian tube, unspecified laterality 10/07/2024 9:30 AM CDT Office Visit [facility] [address] [place] [address] Joe Montague MD Well woman exam (Primary Dx); Encounter for screening mammogram for malignant neoplasm of breast; Screening for malignant neoplasm of colon; Screening for colon cancer 10/07/2024 Telephone [facility] at [address] [place] [address] Jesus Harris DO 10/03/2024 3:15 PM CDT Office Visit [facility] [address] [facility] 6th [place] [address] [place] [address] Landon Carrillo MD 10/03/2024 Telephone [facility] [address] [place] [address] [place] [address] Landon Carrillo MD 09/14/2024 Telephone [facility] [address] [place] [address] [place] [address] Landon Carrillo MD 09/13/2024 2:30 PM CDT Office Visit [facility] [address] [facility] Floor 1, [address] [place] [phone] Kathryn Hoover MD CSF leak (Primary Dx) 08/19/2024 Telephone [facility] Floor 1, [address] [place] [id number] Maria Isabel Cross RN 08/16/2024 6:50 PM MOTORBOAT MECHANIC - 08/19/2024 2:03 PM MOTORBOAT MECHANIC Hospital Encounter [facility] [address] [place] [address] Kathryn Hoover MD CSF leak [G96.00] (Primary Dx) Discharge Disposition: Discharge to home or self care 08/14/2024 10:53 AM MOTORBOAT MECHANIC - 08/16/2024 6:15 PM MOTORBOAT MECHANIC Hospital Encounter [facility] [place] [phone] Nisha Glover MD Madej, Adam Benjamin, Other complicated headache syndrome (Primary Dx); CSF [...] SURGICAL HISTORY HR HPV positive 2012: Negative 2013 AUGMENTATION MAMMAPLASTY 06/26/2009 - 06/25/2010 Bilateral Medical [...] on file Legal Sex Female 2:15 AM MOTORBOAT MECHANIC Gender Identity Not on file Sexual Orientation [...] history exists Medical Devices Implanted Type Area School Occupational Therapist Device Identifier Shelf Expiration Date Model / Serial / Lot Breast Breast Bilateral: Breast Procedures Procedure Name Priority Date/Time Associated Diagnosis Comments AUDIOGRAM Routine 10/16/2024 2:30 PM CDT Sensorineural hearing loss (SNHL) of left ear with unrestricted hearing of right ear PAP ONLY Routine 10/07/2024 10:30 AM CDT Well woman exam PAIN MGMT IMAGING EPIDURAL BLOOD PATCH Routine 08/19/2024 10:51 AM MOTORBOAT MECHANIC EGFR Routine 08/18/2024 7:45 PM MOTORBOAT MECHANIC BASIC METABOLIC PANEL Routine 08/18/2024 7:45 PM MOTORBOAT MECHANIC CBC WITHOUT DIFFERENTIAL Routine 08/18/2024 7:45 PM MOTORBOAT MECHANIC MR TOTAL SPINE CSF LEAK WO IP Routine 08/18/2024 8:47 AM MOTORBOAT MECHANIC EGFR Routine 08/17/2024 9:47 PM MOTORBOAT MECHANIC BASIC METABOLIC PANEL Routine 08/17/2024 9:47 PM MOTORBOAT MECHANIC CBC WITHOUT DIFFERENTIAL Routine 08/17/2024 9:47 PM MOTORBOAT MECHANIC URINALYSIS, MICROSCOPIC ONLY STAT 08/17/2024 7:56 AM MOTORBOAT MECHANIC URINALYSIS AND REFLEX TO MICROSCOPIC AND CULTURE STAT 08/17/2024 7:56 AM MOTORBOAT MECHANIC B CHECK SAMPLE STAT 08/16/2024 11:03 PM MOTORBOAT MECHANIC ECG 12-LEAD STAT 08/16/2024 10:01 PM MOTORBOAT MECHANIC POCT GLUCOSE DEVICE Routine 08/16/2024 9 :50 PM MOTORBOAT MECHANIC EGFR STAT 08/16/2024 9:47 PM MOTORBOAT MECHANIC CBC WITHOUT DIFFERENTIAL Routine 08/16/2024 9:47 PM MOTORBOAT MECHANIC PROTIME-INR STAT 08/16/2024 9:47 PM MOTORBOAT MECHANIC APTT STAT 08/16/2024 9:47 PM MOTORBOAT MECHANIC TYPE AND SCREEN STAT 08/16/2024 9:47 PM MOTORBOAT MECHANIC CBC WITHOUT DIFFERENTIAL STAT 08/16/2024 9:47 PM MOTORBOAT MECHANIC PHOSPHORUS STAT 08/16/2024 9:47 PM MOTORBOAT MECHANIC MAGNESIUM STAT 08/16/2024 9:47 PM MOTORBOAT MECHANIC COMPREHENSIVE METABOLIC PANEL STAT 08/16/2024 9:47 PM MOTORBOAT MECHANIC XR CHEST 1 VIEW IP Routine 08/16/2024 9:33 PM MOTORBOAT MECHANIC MRI SPINE TOTAL COMPLETE W WO CONTRAST ED 08/14/2024 8:50 PM MOTORBOAT MECHANIC MRI BRAIN W WO CONTRAST ED 08/14/2024 8:[address] HEAD WO CONTRAST ED 08/14/2024 1 1:52 AM MOTORBOAT MECHANIC EGFR STAT 08/14/2024 11:14 AM MOTORBOAT MECHANIC DIFFERENTIAL AUTO STAT 08/14/2024 11: 14 AM MOTORBOAT MECHANIC BASIC METABOLIC PANEL STAT 08/14/2024 11:14 AM MOTORBOAT MECHANIC CBC WITH AUTO DIFFERENTIAL STAT 08/14/2024 11:14 AM MOTORBOAT MECHANIC SCREENING MAMMOGRAM BILATERAL W NIGEL W IMPLANTS [...] Stephanie Portillo Au.D. Authorized by: Aundrea Aviles, DO Aundrea Aviles DO AUDIOLOGY SERVICES ORDERABLE [...] by Comment [facility] - 01 Comment:Raysa Milian, Surgical Instruments Inspector (ASCP) . . [facility] - 01 Note: [...] - 10/10/2024 10:11 AM CDT Performed at: [address] [id number] Ruffler: Yanet Durbin MD, Phone: [phone] Specimen Comment: [id number] Specimen Comment: No. of containers..01 ThinPrep Vial Joe Montague MD LAB CYTOLOGY ORDERABLES Fi nal Result Performing Organization Address [facility] Co de Phone Number [facility] - 01 * Imaging Epidural Blood Patch ([id number]) (08/19/2024 10:51 AM MOTORBOAT MECHANIC) Narrative [facility] - 08/19/2024 10:52 AM MOTORBOAT MECHANIC The images from this study are not interpreted by Radiology. Please refer to the physician's procedure / OR operative note. Wayne Best MD IMG PAIN MGMT PROCEDURES Final Result Performing Organization Address [facility] Co de Phone Number [facility] * eGFR (08/18/2024 7:45 PM MOTORBOAT MECHANIC) eGFR 83 >=60 mL/min/1. 73 m2 Comment: [...] last reviewed 2021. Blood 08/18/2024 7:45 PM MOTORBOAT MECHANIC 08/18/2024 8:28 PM MOTORBOAT MECHANIC us Kathryn Hoover MD LAB BLOOD ORDERABLES Final Resul t [facility] [place] [address] * CBC without differential (08/18/2024 7:45 PM MOTORBOAT MECHANIC) [facility] WBC 6.3 3.8 - 9.9 K/cumm Hgb 13.5 11.9 - 15.5 g/dL [facility] Hct 38.4 35.6 - 45.5 % [facility] Plt 211 150 - 400 K/cumm [facility] MPV 10.8 9.1 - 12.3 fL [facility] RBC 4.27 3.90 - 5.20 M/cumm [facility] MCV 89.9 81.3 - 96.4 fL [facility] MCH 31.6 27.1 - 33.3 pg [facility] MCHC 35.2 32.3 - 35.7 g/dL [facility] RDW CV 12.2 11.1 - 14.9 % [facility] RDW SD 39.8 35.7 - 48.1 fL [facility] NRBC abs 0.00 0.00 - 0.01 K/cumm [facility] Blood 08/18/2024 7:45 PM MOTORBOAT MECHANIC 08/18/2024 8:28 PM MOTORBOAT MECHANIC Kathryn Hoover MD LAB BLOOD ORDERABLES Final Resul t [facility] [place] [address] * Basic metabolic panel (08/18/2024 7:45 PM MOTORBOAT MECHANIC) Sodium 143 135 - 145 mmol/L Potassium, pl 3.6 3.3 - 4.9 mmol/L [facility] Chloride 107 97 - 110 mmol/L [facility] CO2 26 22 - 32 mmol/L [facility] Anion gap 10 2 - 15 mmol/L [facility] BUN 12 6 - 25 mg/dL [facility] Creatinine 0.82 0.60 - 1.10 mg/dL [facility] Glucose 82 70 - 199 mg/dL [facility] Comment: Interpretive Data Fasting glucose [...] 2022. 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 Dictated by: Gabriel Tran D.O. The radiology attending physician has personally reviewed this study, and had reviewed and/or edited this written report and agrees with it. Electronically signed by: Woo Berry M.D, PHD Narrative 08/18/2024 12:08 PM MOTORBOAT MECHANIC EXAMINATION: 1. Magnetic resonance imaging (MRI) of [...] Woo Berry M.D, PHD Kathryn Hoover MD IM MRI PROCEDURES Final Result * eGFR (08/17/2024 9:47 PM MOTORBOAT MECHANIC) eGFR 84 >=60 mL/min/1. 73 m2 Comment: [...] last reviewed 2021. Blood 08/17/2024 9:47 PM MOTORBOAT MECHANIC 08/17/2024 10:55 PM MOTORBOAT MECHANIC Kathryn Hoover MD LAB BLOOD ORDERABLES Final Resul t Performing Organization Address City/[facility]/ZIP Co de Phone Number [facility] [email or web address] [address] * CBC without differential (08/17/2024 9:47 PM MOTORBOAT MECHANIC) WBC 6.2 3.8 - 9.9 K/cumm Hgb 12.7 11.9 - 15.5 g/dL [facility] Hct 36.4 35.6 - 45.5 % [facility] Plt 223 150 - 400 K/cumm [facility] MPV 11.2 9.1 - 12.3 fL [facility] RBC 4.10 3.90 - 5.20 M/cumm [facility] MCV 88.8 81.3 - 96.4 fL [facility] MCH 31.0 27.1 - 33.3 pg [facility] MCHC 34.9 32.3 - 35.7 g/dL [facility] RDW CV 12.2 11.1 - 14.9 % [facility] RDW SD 39.4 35.7 - 48.1 fL [facility] NRBC abs 0.00 0.00 - 0.01 K/cumm [facility] Blood 08/17/2024 9:47 PM MOTORBOAT MECHANIC 08/17/2024 10:57 PM MOTORBOAT MECHANIC Kathryn Hoover MD LAB BLOOD ORDERABLES Final Resul t Performing Organization Address City/[facility]/ZIP Co de Phone Number [facility] [place] [address] * Basic metabolic panel (08/17/2024 9:47 PM MOTORBOAT MECHANIC) Sodium 143 135 - 145 mmol/L Potassium, pl 3.9 3.3 - 4.9 mmol/L [facility] Chloride 107 97 - 110 mmol/L [facility] CO2 25 22 - 32 mmol/L [facility] Anion gap 11 2 - 15 mmol/L [facility] BUN 12 6 - 25 mg/dL [facility] Creatinine 0.81 0.60 - 1.10 mg/dL [facility] Glucose 97 70 - 199 mg/dL [facility] Comment: Interpretive Data Fasting glucose [...] 2022. Calcium 9.1 8.5 - 10.3 mg/dL [facility] Blood 08/17/2024 9:47 PM MOTORBOAT MECHANIC 08/17/2024 10:55 PM MOTORBOAT MECHANIC us Kathryn Hoover MD LAB BLOOD ORDERABLES Final Resul t [facility] [place] [address] * (ABNORMAL) Urinalysis reflex to microscopic and culture Urine, clean voided (08/17/2024 7:56 AM MOTORBOAT MECHANIC) Pathologist [facility] Color, ur Straw Yellow Clarity, ur Clear Clear [facility] Specific gravity, ur 1.018 1.003 - 1.030 [facility] pH, urine 5.5 [facility] Comment: Interpretive Data U rine pH is affected by diet, medications, systemic acid-base disturbances, and renal tubular function. pH may affect urinary stone formation. For example, urine pH below 6.0 may help reduce the tendency for calcium phosphate stones and pH greater than 6.0 may reduce the tendency for uric acid stone formation. Source: [facility] Current Interpretive Data was last revised on 2017 Protein, ur ql Trace Negative [facility] Glucose, ur ql Negative Negative [facility] Ketones, ur Negative Negative [facility] Bilirubin, ur Negative Negative [facility] Blood, ur Negative Negative [facility] Urobilinogen, ur <2.0 <2.0 mg/dL [facility] Nitrite, ur Negative Negative [facility] Leukocyte esterase, ur 2+(A) Negative [facility] UA reflex comment Reflex to microscopic UA will be performed. [facility] Urine, clean voided 08/17/2024 7:56 AM MOTORBOAT MECHANIC 08/17/2024 8:35 AM MOTORBOAT MECHANIC Kathryn Hoover MD LAB MICROBIOLOGY - GENERAL ORDER ADRIA Final Result Performing Organization Address [facility] de Phone Number [facility] [email or web address] [address] * (ABNORMAL) Urinalysis, microscopic only (08/17/2024 7:56 AM MOTORBOAT MECHANIC) WBC, ur 6-10(A) 0 - 5 /HPF RBC, ur 0-2 0 - 2 /HPF [facility] Epithelial cells, squamous, ur 6-10(A) 0 - 5 /HPF [facility] Comment:Suggestive of contam ination. Consider recollection by clean catch. Bacteria, ur 1+(A) [facility] Mucous, ur Present(A) [facility] Culture Reflex Comment Reflex conditions for urine culture (WBC >10) not met. [facility] Urine, clean voided 08/17/2024 7:56 AM MOTORBOAT MECHANIC 08/17/2024 8:35 AM MOTORBOAT MECHANIC Kathryn Hoover MD LAB URINE ORDERABLES Final Resul t Performing Organization Address [facility] Co de Phone Number [facility] [place] [address] * Check Sample (08/16/2024 11:03 PM MOTORBOAT MECHANIC) ABO Rh O Positive [facility] HCLL OTHER 08/16/2024 11:0 3 PM MOTORBOAT MECHANIC 08/17/2024 12:12 AM MOTORBOAT MECHANIC Kathryn Hoover MD LAB BLOOD ORDERABLES Final Resul t Performing Organization Address [facility] Co de Phone Number [facility] [place] [address] [facility] * ECG 12 lead (08/16/2024 10:01 PM MOTORBOAT MECHANIC) Ventricular Rate EKG/Min 65 BPM [facility] Atrial Rate 65 BPM [facility] AR-Interval (MSEC) 140 ms [facility] QRS-Interval (MSEC) 72 ms [facility] QT-Interval (MSEC) 372 ms [facility] QTc 386 ms [facility] P [place] 73 degrees [facility] R [place] 68 degrees [facility] T [place] 68 degrees [facility] Diagnosis Normal sinus rhythm Normal ECG No previous ECGs available Confirmed by STEVE MONTEJO M.D ([id number]) on 08/19/2024 10:17:56 AM [facility] 08/16/2024 10:0 1 PM MOTORBOAT MECHANIC 08/19/2024 10:17 AM MOTORBOAT MECHANIC Kathryn Hoover MD ECG ORDERABLES Final Result Performing Organization Address [facility] Phone Number [facility] * POCT glucose (08/16/2024 9:50 PM MOTORBOAT MECHANIC) Glucose, POC 100 70 - 199 mg/dL Blood 08/16/2024 9:50 PM MOTORBOAT MECHANIC 08/16/2024 9:50 PM MOTORBOAT MECHANIC Result [facility] Kathryn Hoover MD LAB POCT ORDERABLES - DEVICE Fin al Result Performing Organization Address City/[facility] Co de Phone Number [facility] [place] [address] * eGFR (08/16/2024 9:47 PM MOTORBOAT MECHANIC) eGFR 87 >=60 mL/min/1. 73 m2 Comment: [...] last reviewed 2021. Blood 08/16/2024 9:47 PM MOTORBOAT MECHANIC 08/16/2024 10:33 PM MOTORBOAT MECHANIC Kathryn Hoover MD LAB BLOOD ORDERABLES Final Resul t [facility] [place] [address] * aPTT (08/16/2024 9:47 PM MOTORBOAT MECHANIC) aPTT 34 28 - 38 sec Comment: Interpretive Data Heparin therapeutic range: 66.0 - 100.0 seconds. Range based on correlation with therapeutic heparin activity range of 0.3 - 0.7 Units/mL. Current interpretive data was last revised on 2023. Blood 08/16/2024 9:47 PM MOTORBOAT MECHANIC 08/16/2024 10:37 PM MOTORBOAT MECHANIC Kathryn Hoover MD LAB BLOOD ORDERABLES Final Resul t Performing Organization Address [facility] de Phone Number [facility] [email or web address] [address] * Protime-INR (08/16/2024 9:47 PM MOTORBOAT MECHANIC) Pathologist [facility] PT 10.5 9.7 - 13.0 sec INR 0.97 0.90 - 1.20 [facility] Comment: Interpretive data Oral anticoagulant therapeutic ranges: Venous thromboembolism prophylaxis or treatment: 2.0-3.0 CARDIOLOGY Standard range: 2.0-3.0 High-intensity range: 2.5-3.5 Refer to indication-specific guidelines for appropriate target ranges for prosthetic heart valve replacement. Current interpretive data was last revised on 2019. Blood 08/16/2024 9:47 PM MOTORBOAT MECHANIC 08/16/2024 10:37 PM MOTORBOAT MECHANIC Kathryn Hoover MD LAB BLOOD ORDERABLES Final Resul t Performing Organization Address [facility] de Phone Number [facility] [email or web address] [address] * CBC without differential (08/16/2024 9:47 PM MOTORBOAT MECHANIC) [facility] WBC 7.8 3.8 - 9.9 K/cumm Hgb 13.9 11.9 - 15.5 g/dL [facility] Hct 40.0 35.6 - 45.5 % [facility] Plt 229 150 - 400 K/cumm [facility] MPV 10.8 9.1 - 12.3 fL [facility] RBC 4.42 3.90 - 5.20 M/cumm [facility] MCV 90.5 81.3 - 96.4 fL [facility] MCH 31.4 27.1 - 33.3 pg [facility] MCHC 34.8 32.3 - 35.7 g/dL [facility] RDW CV 12.2 11.1 - 14.9 % [facility] RDW SD 40.4 35.7 - 48.1 fL [facility] NRBC abs 0.00 0.00 - 0.01 K/cumm [facility] Blood 08/16/2024 9:47 PM MOTORBOAT MECHANIC 08/16/2024 10:34 PM MOTORBOAT MECHANIC Kathryn Hoover MD LAB BLOOD ORDERABLES Final Resul t [facility] [place] [address] * CBC without differential (08/16/2024 9:47 PM MOTORBOAT MECHANIC) WBC 7.7 3.8 - 9.9 K/cumm Hgb 14.4 11.9 - 15.5 g/dL [facility] Hct 41.5 35.6 - 45.5 % [facility] Plt 223 150 - 400 K/cumm [facility] MPV 10.7 9.1 - 12.3 fL [facility] RBC 4.60 3.90 - 5.20 M/cumm [facility] MCV 90.2 81.3 - 96.4 fL [facility] MCH 31.3 27.1 - 33.3 pg [facility] MCHC 34.7 32.3 - 35.7 g/dL [facility] RDW CV 12.3 11.1 - 14.9 % [facility] RDW SD 40.5 35.7 - 48.1 fL [facility] NRBC abs 0.00 0.00 - 0.01 K/cumm [facility] Blood 08/16/2024 9:47 PM MOTORBOAT MECHANIC 08/16/2024 10:34 PM MOTORBOAT MECHANIC Kathryn Hoover MD LAB BLOOD ORDERABLES Final Resul t [facility] [place] [address] * Type and screen (08/16/2024 9:47 PM MOTORBOAT MECHANIC) ABO Rh O Positive [place], indirect Negative [facility] Blood 08/16/2024 9:47 PM MOTORBOAT MECHANIC 08/16/2024 10:39 PM MOTORBOAT MECHANIC Narrative [facility] - 08/16/2024 11:40 PM MOTORBOAT MECHANIC Has the patient had Daratumumab or Isatuximab in the past 6 months?->Unknown Kathryn Hoover MD LAB BLOOD BANK TEST ORDERABLES F inal Result Performing Organization Address [facility] Co de Phone Number [facility] [email or web address] [address] * Phosphorus (08/16/2024 9:47 PM MOTORBOAT MECHANIC) Pathologist [facility] Phosphorus, pl 4.4 2.3 - 4.5 mg/dL Blood 08/16/2024 9:47 PM MOTORBOAT MECHANIC 08/16/2024 10:33 PM MOTORBOAT MECHANIC Kathryn Hoover MD LAB BLOOD ORDERABLES Final Resul t Performing Organization Address [facility] de Phone Number [facility] [email or web address] [address] * Magnesium (08/16/2024 9:47 PM MOTORBOAT MECHANIC) Magnesium 2.3 1.4 - 2.5 mg/dL Blood 08/16/2024 9:47 PM MOTORBOAT MECHANIC 08/16/2024 10:33 PM MOTORBOAT MECHANIC Kathryn Hoover MD LAB BLOOD ORDERABLES Final Resul t Performing Organization Address [facility] de Phone Number [facility] [email or web address] [address] * Comprehensive metabolic panel (08/16/2024 9:47 PM MOTORBOAT MECHANIC) Sodium 144 135 - 145 mmol/L Potassium, pl 3.7 3.3 - 4.9 mmol/L [facility] Chloride 106 97 - 110 mmol/L [facility] CO2 27 22 - 32 mmol/L [facility] Anion gap 11 2 - 15 mmol/L [facility] BUN 10 6 - 25 mg/dL [facility] Creatinine 0.79 0.60 - 1.10 mg/dL [facility] Glucose 92 70 - 199 mg/dL [facility] Comment: Interpretive Data Fasting glucose [...] 2022. Calcium 9.8 8.5 - 10.3 mg/dL [facility] Bilirubin, total 0.7 0.1 - 1.2 mg/dL [facility] Protein, pl 7.4 6.5 - 8.5 g/dL [facility] Albumin 4.3 3.5 - 5.0 g/dL [facility] Alk phos 52 40 - 130 Units/L [facility] ALT 31 7 - 45 Units/L [facility] AST 26 10 - 45 Units/L [facility] Blood 08/16/2024 9:47 PM MOTORBOAT MECHANIC 08/16/2024 10:33 PM MOTORBOAT MECHANIC Kathryn Hoover MD LAB BLOOD ORDERABLES Final Resul t [facility] [place] [address] * XR chest 1 view (Portable) (08/16/2024 9:33 PM MOTORBOAT MECHANIC) Anatomical Region Laterality Modality Body, Chest N/A Computed Radiogr aphy 08/17/2024 7:55 AM MOTORBOAT MECHANIC Impressions 08/17/2024 8:50 AM MOTORBOAT MECHANIC There are no prior chest radiographs for comparison. Lungs are clear. No pleural effusion. No pneumothorax. The heart size and mediastinal contours are within normal limits. Dictated by: Surendra Gipson M.D. The radiology attending physician has personally reviewed this study, and had reviewed and/or edited this written report and agrees with it. Electronically signed by: Leilani Still M.D. Narrative 08/17/2024 8:50 AM MOTORBOAT MECHANIC EXAMINATION: 1 view chest radiograph Procedure Note [...] Complete W WO Contrast (08/14/2024 8:50 PM MOTORBOAT MECHANIC) Anatomical Region Laterality Modality Spine N/A Magnetic Resonan ce 08/15/2024 8:32 AM MOTORBOAT MECHANIC Impressions 08/15/2024 9:11 AM MOTORBOAT MECHANIC 1. Findings consistent with intracranial hypotension. 2. Diffuse spinal pachymeningeal hypertrophy and enhancement. Suspected dorsal likely extra-dural collection beginning at approximately T2-T3 level extending inferiorly to the L4 level. This is best seen/most prominent at T6-T7 dorsally. Findings are suspicious for CSF leak. A dedicated CSF leak protocol MRI is available at [facility]. CT digital subtraction myelography could be performed at [place] as an alternative. Either these studies may [...] Maycol Grove MD Narrative 08/15/2024 9:11 AM MOTORBOAT MECHANIC EXAMINATION: 1. Magnetic resonance imaging (MRI) of [...] CSF leak protocol MRI is available at [facility]. CT digital subtraction myelography could be performed at [place] as an alternative. Either these studies may [...] Electronically signed by: Maycol Grove MD Perry Bethel Jose Luis MCNEAL [facility] MRI PROCEDURES Final Result * MRI Brain W WO Contrast (08/14/2024 8:50 PM MOTORBOAT MECHANIC) Anatomical Region Laterality Modality Head and Neck N/A Magnetic Resonan ce 08/15/2024 8:32 AM MOTORBOAT MECHANIC Impressions 08/15/2024 9:11 AM MOTORBOAT MECHANIC 1. Findings consistent with intracranial hypotension. 2. Diffuse spinal pachymeningeal hypertrophy and enhancement. Suspected dorsal likely extra-dural collection beginning at approximately T2-T3 level extending inferiorly to the L4 level. This is best seen/most prominent at T6-T7 dorsally. Findings are suspicious for CSF leak. A dedicated CSF leak protocol MRI is available at [facility]. CT digital subtraction myelography could be performed at [place] as an alternative. Either these studies may [...] Maycol Grove MD Narrative 08/15/2024 9:11 AM MOTORBOAT MECHANIC EXAMINATION: 1. Magnetic resonance imaging (MRI) of [...] CSF leak protocol MRI is available at [facility]. CT digital subtraction myelography could be performed at [place] as an alternative. Either these studies may [...] by: Maycol Grove MD Perry Amaya DO [facility] MRI PROCEDURES Final Result * CT Head WO Contrast (08/14/2024 11:52 AM MOTORBOAT MECHANIC) Anatomical Region Laterality Modality Head and Neck N/A Computed Tomogra phy 08/14/2024 12:0 8 PM MOTORBOAT MECHANIC Impressions 08/14/2024 12:08 PM MOTORBOAT MECHANIC 1. Crowding of the suprasellar cistern with [...] Emmett Ballard M.D. Narrative 08/14/2024 12:08 PM MOTORBOAT MECHANIC EXAM:CT HEAD WO CONTRAST INDICATION: Headache, new [...] Final Result * eGFR (08/14/2024 11:14 AM MOTORBOAT MECHANIC) eGFR >90 >=60 mL/min/1. 73 m2 Comment: [...] reviewed 2021. Blood 08/14/2024 11:1 4 AM MOTORBOAT MECHANIC 08/14/2024 11:40 AM MOTORBOAT MECHANIC Nisha Glover MD LAB BLOOD ORDERABLES Final Resu lt [facility] [address] Department [place] [address] * Differential, auto (08/14/2024 11:14 AM MOTORBOAT MECHANIC) Pathologist [facility] Neutrophil abs 5.4 1.5 - 6.5 K/cumm Imm gran abs 0.0 0.0 - 0.1 K/cumm [facility] Lymphocyte abs 1.3 0.8 - 3.3 K/cumm [facility] Monocyte abs 0.4 0.2 - 0.8 K/cumm [facility] Eosinophil abs 0.1 0.0 - 0.5 K/cumm [facility] Basophil abs 0.0 0.0 - 0.1 K/cumm [facility] Neutrophil pct 75.0 % [facility] Comment: Interpretive Data Percent cell count reference ranges are not reported, since discordance with absolute values may lead to misinterpretation of CBC data. Current Interpretive Data was last revised on 2017. Imm gran pct 0.4 % [facility] Comment: Interpretive Data Percent cell count reference ranges are not reported, since discordance with absolute values may lead to misinterpretation of CBC data. Current Interpretive Data was last revised on 2017. Lymphocyte pct 17.9 % [facility] Comment: Interpretive Data Percent cell count reference ranges are not reported, since discordance with absolute values may lead to misinterpretation of CBC data. Current Interpretive Data was last revised on 2017. Monocyte pct 5.5 % [facility] Comment: Interpretive Data Percent cell count reference ranges are not reported, since discordance with absolute values may lead to misinterpretation of CBC data. Current Interpretive Data was last revised on 2017. Eosinophil pct 0.8 % [facility] Comment: Interpretive Data Percent cell count reference ranges are not reported, since discordance with absolute values may lead to misinterpretation of CBC data. Current Interpretive Data was last revised on 2017. Basophil pct 0.4 % [facility] Comment: Interpretive Data Percent cell count reference ranges are not reported, since discordance with absolute values may lead to misinterpretation of CBC data. Current Interpretive Data was last revised on 2017. Blood 08/14/2024 11:1 4 AM MOTORBOAT MECHANIC 08/14/2024 11:40 AM MOTORBOAT MECHANIC us Nisha Glover MD LAB BLOOD ORDERABLES Final Resu lt [facility] [address] [place] [address] * CBC with auto differential (08/14/2024 11:14 AM MOTORBOAT MECHANIC) [facility] WBC 7.2 3.8 - 9.9 K/cumm Hgb 14.4 11.9 - 15.5 g/dL [facility] Hct 42.6 35.6 - 45.5 % [facility] Plt 229 150 - 400 K/cumm [facility] MPV 10.6 9.1 - 12.3 fL [facility] RBC 4.58 3.90 - 5.20 M/cumm [facility] MCV 93.0 81.3 - 96.4 fL [facility] MCH 31.4 27.1 - 33.3 pg [facility] MCHC 33.8 32.3 - 35.7 g/dL [facility] RDW CV 12.2 11.1 - 14.9 % [facility] RDW SD 42.1 35.7 - 48.1 fL [facility] NRBC abs 0.00 0.00 - 0.01 K/cumm [facility] Blood 08/14/2024 11:1 4 AM MOTORBOAT MECHANIC 08/14/2024 11:40 AM MOTORBOAT MECHANIC us Nisha Glover MD LAB BLOOD ORDERABLES Final Resu lt [facility] [address] [place] [address] * Basic metabolic panel (08/14/2024 11:14 AM MOTORBOAT MECHANIC) [facility] Sodium 143 135 - 145 mmol/L Potassium, pl 4.2 3.3 - 4.9 mmol/L [facility] Chloride 108 97 - 110 mmol/L [facility] CO2 24 22 - 32 mmol/L [facility] Anion gap 11 2 - 15 mmol/L [facility] BUN 11 6 - 25 mg/dL [facility] Creatinine 0.69 0.60 - 1.10 mg/dL [facility] Glucose 125 70 - 199 mg/dL [facility] Comment: Interpretive Data Fasting glucose >/= 126 [...] 2022. Calcium 9.3 8.5 - 10.3 mg/dL [facility] Blood 08/14/2024 11:1 4 AM MOTORBOAT MECHANIC 08/14/2024 11:40 AM MOTORBOAT MECHANIC us Nisha Glover MD LAB BLOOD ORDERABLES Final Resu lt [facility] [address] [place] [address] * Screening Mammogram Bilateral W Nigel W [...] Most Recently Relevant to Health Maintenance Insurance [facility] Address: [place] [address] [facility] Address: [address] [place] [address] [facility] Address: [facility] [address] [id number] Advance Directives For more information, please contact: [phone] * Full Code (Latest Code Status on File) Date Activated Date Inactivated Comments 08/16/2024 7:43 PM 08/19/2024 6:08 PM * Full Code Date Activated Date Inactivated Comments 08/14/2024 5:48 PM 08/16/2024 6:50 PM 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
== END 2024-10-29 13:39 | disposition home or self-care (01) ==
LOC: CHSIMG 13:39
PROVIDERS: PCP Nurse Practitioner Family; Visit Provider Nurse Practitioner Family
DX: R07.89 Other chest pain (principal); R06.02 Shortness of breath; I07.1 Rheumatic tricuspid insufficiency
CPT/HCPCS: 93306